=== PATIENT | female | born 1955 | race Caucasian/White ===

== ENCOUNTER 2024-02-22 16:44 | Inpatient (IN) | payer MEDICARE, OTHER, SELFPAY ==
[2024-02-22] VITALS (58 sets, daily range): BP systolic 67–203; BP diastolic 33–121; PULSE 59–151; RESP 16–35; TEMP 36.1–36.9; O2SAT 88–99
--- NOTE | ~2024-02-22 | XR_ITS ---
EXAMINATION: XR chest 1V portable DATE: 03/02/2024 05:46 INDICATION: Pulmonary edema. TECHNIQUE: A single frontal view of the chest was obtained. COMPARISON: Chest single view 03/01/2024 FINDINGS: There is a diffuse interstitial pattern in the lungs, consistent with mild pulmonary edema. No pleural effusion or pneumothorax. The heart size is normal. A left internal jugular central venou s catheter is seen with tip in the superior vena cava. IMPRESSION: 1. Mild pulmonary edema. Reviewed, dictated and finalized at location E. IMPRESSION: 1. Mild pulmonary edema.
--- NOTE | ~2024-02-22 | XR_ITS ---
EXAMINATION: XR abdomen gastric tube insert DATE: 02/22/2024 17:33 INDICATION: Nasogastric tube placement. TECHNIQUE: A supine view of the abdomen was obtained. COMPARISON: None. FINDINGS: There are no dilated loops of bowel. The lower abdomen is excluded. The nasogastric tube ti p is in the stomach. IMPRESSION: 1. Nasogastric tube tip in the stomach. Reviewed, dictated and finalized at location E.
--- NOTE | ~2024-02-22 | US_ITS ---
EXAMINATION: US renal BI DATE: 02/23/2024 14:23 INDICATION: ALONDRA TECHNIQUE: Multiple grayscale and Doppler ultrasound images of the kidneys were obtained. COMPARISON: CTPA 02/22/2024 FINDINGS: Exam limited by patient mobility. The right kidney measures 11.6 x 4.0 x 3.8 cm. The left kidney abigail ures 9.4 x 4.3 x 4.9 cm. The kidneys demonstrate normal parenchymal echogenicity. Mild cortical thinn ing on the left. There is no hydronephrosis. The bladder is decompressed by Llamas catheter and theref ore incompletely evaluated. Incidental note of increased liver echogenicity. IMPRESSION: Mild left renal cortical atrophy. Echogenic liver, most commonly due to steatosis but also can be seen with hepatitis and fibrosis. Reviewed, dictated and finalized at location K. IMPRESSION: Mild left renal cortical atrophy. Echogenic liver, most commonly due to steatosis but also can be seen with hepat itis and fibrosis.
--- NOTE | ~2024-02-22 | XR_ITS ---
Portable chest x-ray Comparison: 02/23/2024 Clinical History: Cardiac arrest Findings: Endotracheal tube, NG tube, and left-sided central venous line are in satisfactory positio ns. Small left pleural effusion present. There is mild central congestive change and probable mild bi basilar pulmonary edema/atelectasis. Cardiomediastinal silhouette is stable. Bones and soft tissues are unremarkable. Impression: Support tubes, as above. Small left pleural effusion with mild bibasilar pulmonary edema/atelectasis. Reviewed, dictated and finalized at location M. Impression: Support tubes, as above. Small left pleural effusion with mild bibasilar pulmonary edema/atelectasis.
--- NOTE | ~2024-02-22 | CT_ITS ---
EXAMINATION: CTA chest PE protocol DATE: 02/22/2024 20:02 INDICATION: Shortness of breath. TECHNIQUE: Computed tomography angiography (CTA) of the chest was performed with 100 mL Omnipaque-350 intravenous contrast timed to evaluate the pulmonary arteries. Coronal maximum intensity projection 3D-reconstructions were created by the technologist. Automated exposure control and iterative reconst ruction technique were employed. The dose-length product was 931.00 mGy-cm. COMPARISON: None. FINDINGS: There are small pleural effusions. There is moderate atelectasis bilaterally with a depende nt predominance. There are airspace and groundglass opacities in the upper lobes. The endotracheal tu be tip is in expected position above the ximena. Cardiomegaly is noted. No pericardial effusion. The nasogastric tube tip is in the stomach. There is no pulmonary embolus. Thoracic kyphosis and moderate spondylosis. There is mild chronic anterior wedging of multiple thoracic vertebral bodies. There are fractures of left fourth-seventh ribs. The left internal jugular central venous catheter is obscured by motion artifact. IMPRESSION: 1. No pulmonary embolus. Sensitivity is moderately decreased by motion artifact. 2. Acute fractures of left fourth-seventh ribs. 3. Small pleural effusions. 4. Airspace and groundglass opacities in the upper lobes, consistent with pneumonia versus pulmonary edema. Reviewed, dictated and finalized at location E. IMPRESSION: 1. No pulmonary embolus. Sensitivity is moderately decreased by motion artifact . 2. Acute fractures of left fourth-seventh ribs. 3. Small pleural effusions. 4. Airspace and groundglass opacities in the upper lobes, consistent with pneum onia versus pulmonary edema.
--- NOTE | ~2024-02-22 | XR_ITS ---
EXAMINATION: XR chest port-a-cath/central DATE: 02/22/2024 18:04 INDICATION: Central line placement. TECHNIQUE: A single frontal view of the chest was obtained on 2 radiographs. COMPARISON: Chest single view at 5:02 PM FINDINGS: The right lateral aspect of the chest is excluded. There are airspace opacities in all lung zones bilaterally. No pleural effusion or pneumothorax. Cardiomegaly is noted. The endotracheal tube tip is 2.4 cm above the ximena. A left internal jugular central venous catheter is seen with tip in the superior vena cava. The nasogastric tube tip is in the stomach. IMPRESSION: 1. Central line tip in the superior vena cava. 2. Worsened diffuse lung disease, consistent with pulmonary edema versus pneumonia. 3. Cardiomegaly. Reviewed, dictated and finalized at location E. IMPRESSION: 1. Central line tip in the superior vena cava. 2. Worsened diffuse lung disease, consistent with pulmonary edema versus pneumo eloise. 3. Cardiomegaly.
--- NOTE | ~2024-02-22 | XR_ITS ---
Portable chest x-ray Comparison: 02/22/2024 Clinical History: Cardiac arrest Findings: Endotracheal tube, NG tube, and left IJ line are in satisfactory positions. There is proba ble small left pleural effusion and/or left basilar atelectasis. Right lung clear. Cardiomediastinal silhouette is stable. Bones and soft tissues are unremarkable. Impression: Probable small left pleural effusion and/or left basilar atelectasis. Support tubes, as above. Reviewed, dictated and finalized at location . Impression: Probable small left pleural effusion and/or left basilar atelectasis. Support tubes, as above.
--- NOTE | ~2024-02-22 | XR_ITS ---
XR chest 1V portable 02/29/2024 05:27 Indication: Pulmonary edema Procedure: AP portable chest Comparison: Comparison to multiple prior studies sequentially, with oldest reviewed study dated 02/25. Findings: Cardiomegaly. Mild interstitial edema. Left IJ central line tip in the SVC. No pleural effu letitia or pneumothorax. No acute osseous abnormality. Impression: 1: Mild interstitial edema. Reviewed, dictated and finalized at location A. Impression: 1: Mild interstitial edema.
--- NOTE | ~2024-02-22 | XR_ITS ---
Portable chest x-ray Comparison: 02/24/2024 Clinical History: Cardiac arrest Findings: Endotracheal tube, NG tube, and left IJ line are in satisfactory positions. Probable mild pulmonary edema pattern. Cardiomediastinal silhouette is stable. Bones and soft tissues are unremark able. Impression: Mild pulmonary edema pattern. Support tubes, as above. Reviewed, dictated and finalized at [facility]. Impression: Mild pulmonary edema pattern. Support tubes, as above.
--- NOTE | ~2024-02-22 | XR_ITS ---
EXAMINATION: XR chest 1V portable DATE: 02/26/2024 20:25 INDICATION: Increased shortness of breath. Abnormal lung sounds. TECHNIQUE: A single frontal view of the chest was obtained. COMPARISON: Chest single view at 5:15 AM FINDINGS: There are airspace opacities in all lung zones bilaterally. No pleural effusion or pneumoth orax. Cardiomegaly is noted. A left internal jugular central venous catheter is seen with tip in the superior vena cava. IMPRESSION: 1. Worsened diffuse lung disease, consistent with pulmonary edema versus pneumonia. 2. Cardiomegaly. Reviewed, dictated and finalized at location E. IMPRESSION: 1. Worsened diffuse lung disease, consistent with pulmonary edema versus pneumo eloise. 2. Cardiomegaly.
--- NOTE | ~2024-02-22 | XR_ITS ---
XR chest 1V portable 02/28/2024 08:13 Indication: Pulmonary edema Procedure: AP portable chest Comparison: Comparison to multiple prior studies sequentially, with oldest reviewed study dated 02/24. Findings: Extensive patchy bilateral airspace disease. Cardiomegaly. Left IJ central line tip in the SVC. No significant effusion. No pneumothorax. Impression: 1: Persistent extensive bilateral airspace disease which may represent edema or pneumonia. Reviewed, dictated and finalized at location A. Impression: 1: Persistent extensive bilateral airspace disease which may represent edema or pneumonia.
--- NOTE | ~2024-02-22 | CT_ITS ---
EXAMINATION: CT brain wo con DATE: 02/22/2024 20:02 INDICATION: Unresponsive. TECHNIQUE: Computed tomography (CT) of the head was performed without intravenous contrast. The mA wa s adjusted according to patient size. Iterative reconstruction technique was employed. The dose-lengt h product was 605.33 mGy-cm. COMPARISON: None FINDINGS: There is no intracranial hemorrhage, acute infarction, or abnormal intracranial mass lesion . There are scattered areas of low attenuation in the cerebral white matter, which is within normal l imits for the patient's age. The ventricles are normal in size. There is a left mastoid effusion. The re is mild mucosal thickening in the paranasal sinuses. The orbits are normal. IMPRESSION: 1. Normal aging brain. Reviewed, dictated and finalized at location E. IMPRESSION: 1. Normal aging brain.
--- NOTE | ~2024-02-22 | XR_ITS ---
Portable chest x-ray Comparison: 02/26/2024 Clinical History: Pulmonary edema Findings: Left-sided central venous line is unchanged. There is central congestive change and mild t o moderate pulmonary edema pattern. Cardiomediastinal silhouette is stable. Bones and soft tissues a re unremarkable. Impression: [id number] pulmonary edema pattern. Stable support line. Reviewed, dictated and finalized at location . Impression: [id number] pulmonary edema pattern. Stable support line.
--- NOTE | ~2024-02-22 | XR_ITS ---
EXAMINATION: XR chest ET placement DATE: 02/22/2024 17:33 INDICATION: Intubation. TECHNIQUE: A single frontal view of the chest was obtained. COMPARISON: None. FINDINGS: There is mild atelectasis in left lower lung zone. No pleural effusion or pneumothorax. Car diomegaly is noted. The endotracheal tube tip is 2.3 cm above the ximena. The nasogastric tube tip is beyond the inferior margin of the radiograph, but at least to the stomach. IMPRESSION: 1. Mild atelectasis in left lower lung zone. 2. Cardiomegaly. Reviewed, dictated and finalized at location E.
--- NOTE | ~2024-02-22 | XR_ITS ---
EXAMINATION: XR chest 1V portable DATE: 03/01/2024 06:58 INDICATION: Pulmonary edema. TECHNIQUE: A single frontal view of the chest was obtained. COMPARISON: Chest single view 02/29/24 FINDINGS: There is a diffuse interstitial pattern, consistent with mild pulmonary edema. A calcified left lung nodule is consistent with old granulomatous disease. There is a small left pleural effusion . No pneumothorax. The heart size is normal. A left internal jugular central venous catheter is seen with tip in the superior vena cava. IMPRESSION: 1. Mild pulmonary edema. 2. Small left pleural effusion. Reviewed, dictated and finalized at location E.
--- NOTE | ~2024-02-22 | XR_ITS ---
Portable chest x-ray Comparison: 02/25/2024 Clinical History: Cardiac arrest Findings: Left-sided central venous line is unchanged. Minimal central congestive changes are presen t. Cardiomediastinal silhouette is stable. Bones and soft tissues are unremarkable. Impression: Mild central congestive changes. Left IJ line in place. Reviewed, dictated and finalized at location . Impression: Mild central congestive changes. Left IJ line in place.
--- NOTE | ~2024-02-22 | XR_ITS ---
Portable chest x-ray Comparison: 03/02/2024 Clinical History: Pulmonary edema Findings: There is central congestive change and probable mild pulmonary edema pattern. Cardiomedia stinal silhouette is stable. Bones and soft tissues are unremarkable. Impression: Central congestive change and probable mild pulmonary edema. Reviewed, dictated and finalized at [facility]. Impression: Central congestive change and probable mild pulmonary edema.
[2024-02-22] MEDS: AMIODARONE 150 MG/D5W 100 ML 150 MG/100 ML BAG 600 MG IV CONT (16:59)
[2024-02-22] MEDS: fentaNYL CITRATE INJ (*CRX) 100 MCG/2 ML VIAL IV PUSH (17:01)
[2024-02-22] MEDS: SODIUM CHLORIDE 0.9% IV 500 ML 999 ML IV CONT (17:03)
[2024-02-22] MEDS: NOREPINEPHRINE 8 MG/D5W 250 ML 8 MG/250 ML BAG 9.38 MG IV CONT (17:15)
[2024-02-22 17:32] LABS: Basophils Absolute Auto 0.1 K/mm3 (0.0-0.1); Basophils Percent Auto 0.6 % (0.2-1.2); Eosinophils Absolute Auto 0.2 K/mm3 (0-0.3); Eosinophils Percent Auto 1.2 % (0-4.4); Hematocrit 47.7 % (37.0-47.0); Hemoglobin 15.5 g/dL (12.0-15.0); Immature Granulocyte Percent A 1.5 % (0-0.5); Immature Platelet Fraction Pct 17.7 % (0.9-11.2); Lymphocytes Absolute Auto 6.07 K/mm3 (0.9-3.2); Mean Corpuscular HGB Conc 32.5 g/dl (32-36); Mean Corpuscular Hemoglobin 31.2 pg (26-34); Mean Platelet Volume 12.1 fl (7.4-10.4); Monocytes Absolute Auto 0.8 K/mm3 (0.1-0.6); Monocytes Percent Auto 6.5 % (2.6-8.5); Neutrophils Absolute Auto 5.6 K/mm3 (1.3-6.7); Neutrophils Percent Auto 43.2 % (45.5-73.1); Platelet Count Result 151 k/mm3 (150-375); Red Blood Count 4.97 M/mm3 (4.2-5.4); Red Cell Distribution Width 13.8 % (11.5-14.5); White Blood Count 12.9 K/mm3 (4.5-10.0)
[2024-02-22 17:34] LABS: Alanine Aminotransferase 171 U/L (6-35); Albumin Level 4.6 g/dL (3.5-5.1); Alkaline Phosphatase 77 U/L (38-126); Anion Gap 13 mmol/L (4-12); Aspartate Amino Transferase 206 U/L (14-36); Bilirubin,Total 0.8 mg/dL (0.2-1.3); Blood Urea Nitrogen 21 mg/dL (7-17); Carbon Dioxide 22 mmol/L (22-30); Chloride 102 mmol/L (98-107); Cholesterol 205 mg/dL (0-200); Estimated Glomerular Filt Rate 49; Glucose 210 mg/dL (65-110); HDL Direct 36 mg/dL; Potassium 3.3 mmol/L (3.4-5.0); Sodium 137 mmol/L (137-145); Triglycerides 285 mg/dL (<150)
[2024-02-22] MEDS: AMIODARONE 360 MG/D5W 200 ML 360 MG/200 ML BAG 33.33 MG IV CONT (17:35)
[2024-02-22 17:42] LABS: INR 0.9; Prothrombin Time 12.2 Seconds (11.1-14.7)
[2024-02-22 17:43] LABS: Partial Thromboplastin Time 24.5 Seconds (22.3-36.8)
[2024-02-22 17:45] LABS: LDL Cholesterol Direct 134 mg/dL
[2024-02-22 17:45] LABS: Alveolar/Arterial O2 Gradient 307.1 mmHg; Base Excess ABG -6.1 mEq/l (+/-2.0); Carboxyhemoglobin 1.1 % THb (0-2.0); Fractional Inspired Oxygen 60 %; HCO3 ABG 20.4 mEq/l (22.0-26.0); Methemoglobin ABG 0.3 %THb (0-1.5); Oxygen Content ABG 19.4 %vol (16.0-22.0); Oxygen Saturation ABG 92.6 % (95.0-100.0); Oxyhemoglobin 90.9 % THb (90.0-100.0); PCO2 ABG 44.2 mmHg (35.0-45.0); PO2 ABG 72.1 mmHg (80.0-100.0); Reduced Hemoglobin 7.7 %THb (0-5.0); Total Hemoglobin 15.2 g/dL (12.0-18.0)
[2024-02-22 17:47] LABS: pH ABG 7.283 (7.350-7.450)
[2024-02-22 17:48] LABS: Troponin I < 0.012 ng/mL (0.000-0.034)
[2024-02-22 17:48] LABS: Device VENTILATOR; Modified Allen's Test Pass; Site Drawn RIGHT RADIAL
[2024-02-22 17:49] LABS: Arterial Blood Gas PEEP 5 cmH2O; Arterial Blood Gas Pressure Support 0 cmH2O; Arterial Blood Gas Tidal Volume 400 ml; Arterial Blood Gas Vent Mode CMV; Arterial Blood Gas Ventilator rate 16 /MIN
[2024-02-22] MEDS: Please add drug allergy info to patient profile. 1 EACH XX (17:49)
--- NOTE | 2024-02-22 18:10 | ED.CPR ---
HPI - CPR General Chief Complaint: Cardiac Arrest/CPR Stated Complaint: post cardaic arrest Time Seen by Provider: 02/22/24 17:00 History of Present Illness HPI narrative: Per at bedside, patient has history of asthma, arrhythmia(?)/missed electric impulses(?) Which she was told would likely require defibrillator which she declined, presents here after cardiac arrest that was witnessed. had noticed that she was having more difficulty breathing, and then her eyes became glossy and she stopped responding, he could not find a pulse, he started doing chest compressions and told his nephew in the backseat to call EMS. Together he and his nephew got the patient on to the ground and continued with CPR, when EMS arrived they saw that patient was in VFib, gave 2 shocks, no medications at the time, and she got ROSC and was transported here. They were assisting ventilations with bag-valve mask. Review of Systems Review of Systems: ROS unobtainable: Yes unobtainable due to medical condition and unobtainable due to mental status Exam Narrative: EXAMINATION OF ORGAN SYSTEMS/BODY AREAS: Constitutional: Vital signs per nursing GENERAL: Unresponsive HEAD: Normal with no signs of head trauma. EYES: Eyes closed; PERRL LUNGS: Being assisted with BVM HEART: Tachycardic ABD: [Soft], nondistended EXT: Normal range of motion, no obvious swelling to either lower extremity SKIN: [No rashes or lesions.] NEURO: Unresponsive Course Vital Signs Vital signs: Vital Signs Pulse Rate 126 H 02/22/24 16:59 Blood Pressure 106/67 02/22/24 16:59 Temperature 96.9 F L 02/22/24 20:07 Pulse Rate 93 02/22/24 21:48 Respiratory Rate 26 H 02/22/24 20:49 Blood Pressure 84/33 L 02/22/24 21:48 Pulse Oximetry 96 02/22/24 20:10 Oxygen Delivery Mechanical Ventilation 02/22/24 20:10 Procedures Arterial Line Arterial line #1: Date of Arterial Line: 02/22/24 Time of Arterial Line: 19:00 Arterial Line Location: femoral and right Discussed with the patient/family/POA, the placement of an arterial catheter, including its clinical necessity/indication and associated potential risks, benefits and alternatives.: Yes Patient/family/POA and/or understands and acknowledges the need to proceed with the arterial catheter insertion as an important element of the patient's clinical management.: Yes Size (Gauge): 20 Technique Used: other (US guided seldinger) Post-Procedure: line sutured into place and dry sterile dressing placed Patient Tolerated Procedure: well and no complications Complications: none Central Line Placement Left IJ: Central Line Date: 02/22/24 Central Line Time: 20:11 Performed Emergently - Given emergent patient condition, temporal constraints may have precluded informed consent.: Yes Patient Placed on Monitor/Pulse Ox: Yes Max. Sterile Barrier Technique: Caps, large sterile sheet and hand hygiene Central Line Prep: 2% chlorhexidine scrub and sterile drapes applied Technique: US-Guided Ultrasound Used for Placement: Yes Central Line Lumen Inserted: triple Post Procedure: sutured in place, good blood return, all ports aspirated, flushed, capped and sterile dressing applied Post Procedure X-Ray: tip of catheter in good position and no pneumothorax seen Patient Tolerated Procedure: well and no complications Complications: none Intubation Intubation #1: Intubation Date: 02/22/24 sedative: Etomidate Mg Given: 20 paralytic: Rocuronium Mg Given: 100 Laryngoscope: fiber optic video scope Tube Size (cm): 7.5 Method of Intubation: orotracheal Number of Attempts: 1 Tube Secured Depth (cm): 23 Tube Secured Location: lips Tube Placement Confirmation: visualized tube passing through cords, equal breath sounds bilaterally
[2024-02-22] MEDS: FENTANYL 2,500MCG/NS250ML(*CRX 2,500 MCG/250 ML BAG IV CONT (18:13)
[2024-02-22] MEDS: MIDAZOLAM 100MG/NS 100ML(*CRX) 100 MG/100 ML BAG IV CONT (19:19)
[2024-02-22 20:11] LABS: Glucose Point of Care 233 mg/dl (65-105)
--- NOTE | 2024-02-22 20:19 | PC.NURSE ---
titrated medications until desired sedation and BP
[2024-02-22] MEDS: PIPERACILLIN/TAZ 4.5G/NS 100ML 4.5 GM/100 ML BAG IVPB (20:40)
[2024-02-22] MEDS: FUROSEMIDE INJ 40 MG/4 ML VIAL IV PUSH (20:40)
[2024-02-22 21:06] LABS: Magnesium 1.8 mg/dL (1.6-2.3)
[2024-02-22 21:07] LABS: Anion Gap 10 mmol/L (4-12); Blood Urea Nitrogen 23 mg/dL (7-17); Calcium 8.3 mg/dL (8.4-10.2); Carbon Dioxide 22 mmol/L (22-30); Chloride 103 mmol/L (98-107); Estimated Glomerular Filt Rate 41; Glucose 281 mg/dL (65-110); Potassium 4.3 mmol/L (3.4-5.0); Sodium 135 mmol/L (137-145)
[2024-02-22 21:12] LABS: Amphetamine Screen Urine Negative (Negative); Barbiturate Screen Urine Negative (Negative); Benzodiazepines Screen Urine Negative (Negative); Cannabinoid Screen Urine Negative (Negative); Cocaine Screen Urine Negative (Negative); Methadone Screen Urine Negative (Negative); Opiate Screen Urine Negative (Negative); Phencyclidine Screen Urine Negative (Negative)
[2024-02-22 21:17] LABS: NT Pro B Type Natriuretic Pept 306 pg/mL (19.9-100)
[2024-02-22 21:20] LABS: Appearance Urine Cloudy (Clear); Bacteria Urine Rare /hpf; Bilirubin Urine Negative (Negative); Blood Urine 2+ (Negative); Color Urine Yellow (Yellow); Glucose Urine UA 2+ mg/dL (Negative); Ketones Urine Negative (Negative); Leukocyte Esterase Ur Negative LEU/UL (Negative); Need Manual Microscopic Reviewed; Nitrate Urine Negative (Negative); Protein Urine 3+ mg/dL (Negative); Specific Grav Ur 1.014 (1.001-1.035); Squamous Epithelial Cell Urine Few /hpf (Few); Urobilinogen Urine 0.2 mg/dL (<2.0)
[2024-02-22 21:21] LABS: Add Urine Microscopic? YES
[2024-02-22 21:33] LABS: Procalcitonin 0.5 ng/mL
[2024-02-22 21:47] LABS: Creatine Kinase 134 U/L (30-135)
--- NOTE | 2024-02-22 21:59 | PM.IMHP ---
H&P: HPI History of Present Illness Date/Time: 02/22/24 21:59 Chief Complaint: Cardiac arrest Narrative: 69-year-old female with past medical history of morbid obesity, gout, asthma, essential hypertension and what sounds like a cardiac conduction issue who presented to the ER via EMS after she became unresponsive on a road trip was found to be in VFib arrest. And patient's provides history. he has limited knowledge on her past medical history but states that she saw a reel cart operator in 2017 after she was having episodes of shortness of breath. At that time the patient was told she had a problem with missed electrical impulses and it was recommended that she have a AICD /pacemaker placed. The patient declined the procedure at that time could she did not want to have any surgeries. He states that she does have a somewhat frequent shortness of breath but has not been more short of breath than usual. She has not been complaining any chest pain or palpitations. She has not had any nausea or vomiting. He denies ever having any history of significant lower extremity swelling unless it is associated with her gouty flares. She does use a rescue inhaler somewhat frequently. He denies ever having history of COPD and she is a lifelong nonsmoker. He states that they were driving their nephew down to [place] from their home in [place], [place]. They had stopped at [employer] locally. shortly after they got back on the highway back on the road he and his were holding hands while he was driving. Suddenly she went limp and became diaphoretic. He looked over at her and she was having agonal respirations. He could not find a pulse and her eyes were glassy. He pulled over at the next exit and started CPR while his nephew called EMS. He thinks EMS arrived about 8 minutes later. At that time patient was found to be in VFib arrest. Patient was Defibrillated x2 with return of her os. The patient did not require additional medications in the field. She was receiving assisted ventilations with [id number] when she arrived to the ER. after arrival to the ER the patient was intubated after RSI medicationsfor stabilization of her airway. after intubation patient developed white complex tachycardia and there was no palpable pulse. Patient subsequently received another round of CPR and Defibrillation. Patient received 1 dose of epi and was given 300 mg of IV push amiodarone. The patient returned to sinus rhythm. EKG reportedly demonstrated a left bundle-branch block with a rate of 70 but at the time of my evaluation staff cannot locate the patient's EKG in due to technical issues the EKG cannot be visualized in the computer system at this time. The patient did develop significant hypotension and required left IJ placement in the ER. The patient's cuff pressures were difficult to obtain due to patient's body habitus and her pressures were quite variable. Subsequently a right femoral art line was placed by ER provider. Cuff pressures were roughly correlating with the femoral line pressures. Patient was started on Levophed. Stat CT of the brain and CTA of the chest with PE protocol was obtained. CT of the brain was negative for acute process in CTA was negative for pulmonary embolism But demonstrated expected rib fractures of left 4 through 7 ribs, small pleural effusion and ground-glass opacities in the upper lobes consistent with pneumonia versus pulmonary edema. Given clinical scenario pulmonary edema is more likely. Initial troponin was negative. He reports that she sleeps propped almost completely upright all the time and snore significantly. He does not think she has ever been tested for sleep apnea. The patient's denies patient having any significant coronary artery disease or history of heart attacks. He does not think the patient has ever had heart catheterization. He does not think the patient has ever had any surgic
[2024-02-22] MEDS: CENTRAL LINE FLUSH 10 ML IV PUSH (22:00)
--- NOTE | 2024-02-22 22:10 | ADMGEN ---
This patient, Michell Bautista, was admitted to Intensive Care Unit-6 at 2124. Patient/family oriented to hospital policies and general routines including ID bracelet, bed and alarms, visiting hours, pain management, procedures, bathroom and other care routines, personal items, smoking policy, room service/diet, and visiting hours. Information on how to activate the Rapid Response Team has been discussed. Patient/Family are encouraged to report perceived risks to care and to ask questions if they do not understand what they are told or what they should do.
[2024-02-22] MEDS: HEPARIN SOD/D5W 100 UNITS/ML 25,000 UNITS/250 ML BAG 10 UNITS IV CONT (22:43)
[2024-02-22] MEDS: AMIODARONE 360 MG/D5W 200 ML 360 MG/200 ML BAG 16.67 MG IV CONT (22:52)
[2024-02-22 22:59] LABS: Prothrombin Time 13.6 Seconds (11.1-14.7)
[2024-02-22 23:05] LABS: Alveolar/Arterial O2 Gradient 376.7 mmHg; Base Excess ABG -7.3 mEq/l (+/-2.0); Fractional Inspired Oxygen 100 %; HCO3 ABG 20.9 mEq/l (22.0-26.0); Oxygen Content ABG 22.2 %vol (16.0-22.0); Oxygen Saturation ABG 99.5 % (95.0-100.0); Oxyhemoglobin 98.4 % THb (90.0-100.0); PO2 ABG 284.3 mmHg (80.0-100.0); PO2 FiO2 Ratio Arterial Blood 2.84 %; Total Hemoglobin 15.6 g/dL (12.0-18.0)
[2024-02-22 23:07] LABS: Device VENTILATOR; Modified Allen's Test Pass; Site Drawn ARTLINE; pH ABG 7.221 (7.350-7.450)
[2024-02-22 23:08] LABS: Arterial Blood Gas PEEP 5 cmH2O; Arterial Blood Gas Tidal Volume 400 ml; Arterial Blood Gas Vent Mode CMV; Arterial Blood Gas Ventilator rate 16 /MIN
[2024-02-22] MEDS: NOREPINEPHRINE 8 MG/D5W 250 ML 8 MG/250 ML BAG 41.25 MG IV CONT (23:51)
[2024-02-22 23:52] LABS: Reflex Lactic Acid Yes or No Add Lactic
[2024-02-22] MEDS: ROCURONIUM BROMIDE 50 MG/5 ML VIAL 80 MG IV PUSH (23:55)
[2024-02-23] VITALS (111 sets, daily range): BP systolic 83–171; BP diastolic 37–72; PULSE 46–73; RESP 16–28; TEMP 32.4–36.6; O2SAT 95–99
[2024-02-23 00:19] LABS: Glucose Point of Care 277 mg/dl (65-105)
[2024-02-23 00:23] LABS: MRSA (PCR) NOT DETECTED (NOT DETECTE)
[2024-02-23] MEDS: fentaNYL CITRATE INJ (*CRX) 100 MCG/2 ML VIAL 50 MCG IV PUSH (00:24)
[2024-02-23 00:33] LABS: Lactic Acid 3.1 mmol/L (0.7-2.0)
[2024-02-23 01:37] LABS: Glucose Point of Care 285 mg/dl (65-105)
[2024-02-23 02:43] LABS: Glucose Point of Care 305 mg/dl (65-105)
[2024-02-23 03:47] LABS: Glucose Point of Care 251 mg/dl (65-105)
[2024-02-23] MEDS: CISATRACURIUM BESYLATE 200 MG in DEXTROSE 5% 80 ML 11.95 ML IV CONT (04:16)
[2024-02-23 04:50] LABS: Alveolar/Arterial O2 Gradient 213.8 mmHg; Carboxyhemoglobin 0.3 % THb (0-2.0); Fractional Inspired Oxygen 60 %; HCO3 ABG 20.8 mEq/l (22.0-26.0); Methemoglobin ABG 0.3 %THb (0-1.5); Oxygen Content ABG 21.9 %vol (16.0-22.0); Oxygen Saturation ABG 98.2 % (95.0-100.0); Oxyhemoglobin 97.6 % THb (90.0-100.0); PO2 ABG 147.1 mmHg (80.0-100.0); PO2 FiO2 Ratio Arterial Blood 2.45 %; Reduced Hemoglobin 1.8 %THb (0-5.0); Total Hemoglobin 15.8 g/dL (12.0-18.0)
[2024-02-23 04:52] LABS: pH ABG 7.151 (7.350-7.450)
[2024-02-23 04:53] LABS: PCO2 ABG 60.8 mmHg (35.0-45.0)
[2024-02-23 04:54] LABS: Basophils Absolute Auto 0.1 K/mm3 (0.0-0.1); Basophils Percent Auto 0.3 % (0.2-1.2); Device VENTILATOR; Hematocrit 47.1 % (37.0-47.0); Immature Granulocyte Absolute 0.17 K/mm3 (0.00-0.031); Lymphocytes Absolute Auto 1.62 K/mm3 (0.9-3.2); Lymphocytes Percent Auto 9.3 % (18.3-44.2); Mean Corpuscular HGB Conc 31.8 g/dl (32-36); Mean Corpuscular Hemoglobin 31.2 pg (26-34); Mean Corpuscular Volume 97.9 fl (80-100); Mean Platelet Volume 10.1 fl (7.4-10.4); Modified Allen's Test Pass; Monocytes Absolute Auto 1.1 K/mm3 (0.1-0.6); Monocytes Percent Auto 6.5 % (2.6-8.5); Neutrophils Absolute Auto 14.5 K/mm3 (1.3-6.7); Neutrophils Percent Auto 82.9 % (45.5-73.1); Platelet Count Result 236 k/mm3 (150-375); Red Blood Count 4.81 M/mm3 (4.2-5.4); Red Cell Distribution Width 14.1 % (11.5-14.5); Site Drawn ARTLINE; White Blood Count 17.5 K/mm3 (4.5-10.0)
[2024-02-23 04:55] LABS: Arterial Blood Gas PEEP 5 cmH2O; Arterial Blood Gas Tidal Volume 400 ml; Arterial Blood Gas Vent Mode CMV; Arterial Blood Gas Ventilator rate 20 /MIN
[2024-02-23 04:56] LABS: Glucose Point of Care 212 mg/dl (65-105)
[2024-02-23 05:05] LABS: Partial Thromboplastin Time 55.6 Seconds (22.3-36.8)
[2024-02-23 05:06] LABS: Alanine Aminotransferase 270 U/L (6-35); Albumin Level 4.4 g/dL (3.5-5.1); Alkaline Phosphatase 66 U/L (38-126); Anion Gap 13 mmol/L (4-12); Aspartate Amino Transferase 289 U/L (14-36); Bilirubin,Total 0.6 mg/dL (0.2-1.3); Blood Urea Nitrogen 25 mg/dL (7-17); Calcium 8.7 mg/dL (8.4-10.2); Carbon Dioxide 21 mmol/L (22-30); Chloride 104 mmol/L (98-107); Creatine Kinase 268 U/L (30-135); Estimated CRCL calculation 41 ml/min; Estimated Glomerular Filt Rate 32; Glucose 271 mg/dL (65-110); Potassium 4.2 mmol/L (3.4-5.0); Sodium 138 mmol/L (137-145)
[2024-02-23 05:07] LABS: Hemoglobin A1C 5.4 % (<5.7)
[2024-02-23 05:14] LABS: Prothrombin Time 13.5 Seconds (11.1-14.7)
[2024-02-23] MEDS: HEPARIN SODIUM 5,000 UNITS/ML VIAL 3500 UNITS IV PUSH (05:34)
[2024-02-23] MEDS: SODIUM BICARBONATE 8.4% 50 MEQ/50 ML SYRINGE 100 MEQ IV PUSH (05:37)
[2024-02-23] MEDS: PIPERACILLIN/TAZ 4.5G/NS 100ML 4.5 GM/100 ML BAG IVPB ×3 (05:45→17:32)
[2024-02-23 05:55] LABS: Glucose Point of Care 258 mg/dl (65-105)
[2024-02-23] MEDS: INSULIN ASPART (*BKC) 100 UNITS/ML SUB-Q ×5 (05:57→20:59)
[2024-02-23] MEDS: CENTRAL LINE FLUSH 10 ML IV PUSH ×3 (06:00→20:59)
[2024-02-23 07:23] LABS: Glucose Point of Care 281 mg/dl (65-105)
--- NOTE | 2024-02-23 08:03 | WPDCNINT ---
Assessment and Plan Assessment and plan (1) Cardiac arrest: Code(s): I46.9 - Cardiac arrest, cause unspecified Status: Acute Assessment and Plan: VT VFib arrest in a patient with some underlying heart disease details of which are unknown. As above mentioned patient was recommended pacemaker AICD placement in 2017 which she refused at that time. She also may have underlying coronary disease. Will try to obtain records Her potassium was low on presentation. CTA chest negative for PE BNP slightly elevated. Serial troponin elevated. EKG reviewed and no ST segment elevation MD. Cardiology consulted Continue aspirin heparin Patient was started on amiodarone infusion but had to be stopped due to bradycardia from hypothermia and prolnged QTc. Telemetry monitoring Check echocardiogram Monitor and replace electrolytes Empiric Zosyn for aspiration (2) Acute kidney injury: Code(s): N17.9 - Acute kidney failure, unspecified Status: Acute Assessment and Plan: Baseline creatinine unknown. Creatinine elevated 1.6 CK marginally elevated Likely prerenal versus renal Will give cautious IV fluids Check renal ultrasound Monitor urine output electrolytes and creatinine (3) Acute hyperglycemia: Code(s): R73.9 - Hyperglycemia, unspecified Status: Acute Assessment and Plan: No known history of diabetes. Blood sugar elevated could be secondary to stress Continue sliding scale. Add Lantus (4) Transaminitis: Code(s): R74.01 - Elevation of levels of liver transaminase levels Status: Acute Assessment and Plan: Normal bilirubin and alkaline phosphatase but elevated AST and ALT likely secondary to shock liver or rhabdo Monitor levels at this time. Hold statin (5) Acute respiratory failure: Code(s): J96.00 - Acute respiratory failure, unspecified whether with hypoxia or hypercapnia Status: Acute Assessment and Plan: Acute Respiratory failure secondary to cardiac arrest, pulmonary edema Continue full mechanical ventilation support to prevent hypoxemia/hypercarbia and end organ damage. ABG and PCXR reviewed Earlier respiratory rate and tidal volume of limited by peak pressures. Patient now on neuromuscular kareem Will increase respiratory rate 28.Will repeat ABG Continue Low tidal volume ventilation strategy to prevent volutrauma Add Bronchodilators Empiric Zosyn for aspiration pneumonia. Blood cultures have been sent (6) Shock: Code(s): R57.9 - Shock, unspecified Status: Acute Assessment and Plan: Continue Levophed infusion Will give 500 mL LR bolus And start gentle IV fluids with bicarb (7) Elevated troponin: Code(s): R79.89 - Other specified abnormal findings of blood chemistry Status: Acute Assessment and Plan: Troponin elevated likely secondary to CPR and cardiac arrest Patient may have underlying coronary disease but no ST segment elevation MD Continue aspirin heparin infusion Not on beta-kareem due to shock and hold statin due to elevated LFTs Cardiology consulted (8) Acidosis: Code(s): E87.20 - Acidosis, unspecified Status: Acute Assessment and Plan: IV fluids with bicarb (9) Anoxic brain injury: Code(s): G93.1 - Anoxic brain damage, not elsewhere classified Status: Acute Assessment and Plan: Patient was not having purposeful movement after resuscitation. Head CT negative Started on TTM protocol will be continued for 24 hours. Patient currently sedated and chemically paralyzed. She l will be reassessed tomorrow. Plan DVT prophylaxis -heparin infusion Stress ulcer prophylaxis -PPI Nutrition - npo Code Status - Full Code Total Critical Care Time - 45 minutes Due to a high probability of clinically significant, life threatening deterioration, the patient required my highest level of preparedness to intervene emergently and I personally spent this critical ca
[2024-02-23] MEDS: allopurinoL 300 MG TABLET PO (08:14)
[2024-02-23] MEDS: ASPIRIN 325 MG TABLET FEED TUBE (08:15)
[2024-02-23] MEDS: PANTOPRAZOLE SODIUM IV 40 MG VIAL IV PUSH (08:16)
[2024-02-23] MEDS: INSULIN GLARGINE (*BKC) 100 UNITS/ML 10 UNITS SUB-Q ×2 (08:16→17:18)
[2024-02-23] MEDS: LACTATED RINGERS 500 ML 999 ML IV CONT (08:18)
[2024-02-23] MEDS: IPRATROPIUM 0.5 MG/ALBUTEROL SULFATE 2.5 MG AMPUL.NEB 3 ML INHALATION ×3 (08:31→20:17)
[2024-02-23] MEDS: BUDESONIDE RESPULE NEB 0.5 MG/2 ML AMP INHALATION ×2 (08:31→20:16)
[2024-02-23] MEDS: SODIUM BICARBONATE 8.4% 150 MEQ in WATER, STERILE FOR INJECTION 950 ML 75 MEQ IV CONT ×2 (08:43→22:34)
[2024-02-23 09:06] LABS: Alveolar/Arterial O2 Gradient 196.4 mmHg; Base Excess ABG -6.3 mEq/l (+/-2.0); Fractional Inspired Oxygen 50 %; HCO3 ABG 17.2 mEq/l (22.0-26.0); Oxygen Content ABG 20.2 %vol (16.0-22.0); Oxygen Saturation ABG 98.5 % (95.0-100.0); Oxyhemoglobin 97.6 % THb (90.0-100.0); PCO2 ABG 29.3 mmHg (35.0-45.0); PO2 ABG 127.1 mmHg (80.0-100.0); PO2 FiO2 Ratio Arterial Blood 2.54 %; Total Hemoglobin 14.6 g/dL (12.0-18.0); pH ABG 7.387 (7.350-7.450)
[2024-02-23 09:11] LABS: Arterial Blood Gas PEEP 5 cmH2O; Arterial Blood Gas Tidal Volume 400 ml; Arterial Blood Gas Vent Mode CMV; Arterial Blood Gas Ventilator rate 28 /MIN; Device VENTILATOR; Site Drawn ARTLINE
--- NOTE | 2024-02-23 10:30 | PCFNICU ---
ICU Rounding Note: Pt current nutrition is NPO Last recorded weight is 132.8 kg. Bowel Motility:No BM noted. Labs Reviewed:TG 285,Cr 1.6,GFR 32, BUN 25, Glu 271 Meds Noted:Fentanyl, Levophed, Vesred Skin: WNL Additional Notes: Patient current with mechanical vent. No plans for nutrition today. hypothermia guidelines in place. Will continue to monitor daily. Following daily in ICU rounds.
--- NOTE | 2024-02-23 10:36 | PM.CNCAR ---
Assessment and Plan Assessment and plan (1) V-tach: Code(s): I47.20 - Ventricular tachycardia, unspecified Status: Acute (2) Cardiac arrest: Code(s): I46.9 - Cardiac arrest, cause unspecified Status: Acute Plan This is a 69-year-old woman with asthma hypertension morbid obesity who presents to the hospital after out of hospital ventricular fibrillation arrest while driving on the highway through this vicinity as detailed above. She has been resuscitated in the field and again in the emergency room out of ventricular tachycardia. She is now on hypothermia protocol and is hemodynamically stable. She is still on hypothermia and on some Levophed. I do not believe this event was likely to be related to an acute myocardial infarction based on the presentation, the electrocardiogram and the 's history that a defibrillator was recommended for some reason 6 years ago. Those records have been requested but they are not available to me at the time of this dictation. At this point supportive care it is of course required and observing for any evidence of meaningful neurological recovery. Prognosis at this time is poor Ras Kunz MD [facility] History of Present Illness History of Present Illness Consult date/time: 02/23/24 10:36 Reason For Visit: S/P cardiac arrest Narrative: This is a fortunate 69-year-old lady I am seeing after cardiac arrest with which she was admitted yesterday to the ICU. She is not from this area and is unknown to physicians in this vicinity. She and her reside in [place] and were traveling to take a family member to [place] in [place] to be deployed in the [employer]. They were [place] on [address] in this vicinity and having a normal conversation as his suddenly he lost consciousness and was clearly suffering a cardiac arrest. The pulled the car over and got her onto the ground and started bystander CPR as well as calling 911. When EMS arrived she was in ventricular fibrillation and resuscitation efforts were continued. She was defibrillated into an effective rhythm and was transported to [facility] Emergency Room. Here she was intubated and while in the emergency room had another arrest that was apparently marked by ventricular tachycardia and was once again cardioverted and resuscitated. She was admitted to the ICU after this was placed on hypothermia protocol she is receiving Levophed and in this setting is being seen in consultation. Her electrocardiogram shows sinus rhythm with a wider QRS with sometimes complete sometimes incomplete left bundle branch block conduction but no ST segment deviation consistent with acute myocardial infarction. Troponin levels have risen slightly after this event which of course is expected. Her chest x-ray shows enlargement of her cardiac silhouette with some fractured ribs from the CPR. She is on hypothermia protocol still on the ventilator and is unresponsive. She was placed on intravenous heparin as well. The patient's is in the room and indicates that she saw a customer services manager for consultation back in 2018. He can not remember the reason for the consultation but he does remember that a defibrillator implant was recommended. The patient declined this recommendation and has not been followed by customer services manager since then. She does have hypertension and asthma as her principal health problems as well as morbid obesity. Review of Systems Review of Systems: ROS unobtainable: Yes unobtainable due to mental status PMFSH Past Medical History Medical History Asthma Depression Essential hypertension Gout Kidney stones Mixed hyperlipidemia cholesterol to avoid triglycerides 285 02/22/2024 Morbid obesity Osteoarthritis Surgical History Surgical History Status post dental lutheran dental implants in place
[2024-02-23] MEDS: PERFLUTREN LIPID MICROSPHERES 1.5 ML VIAL DILUTED TO 10 ML TOTAL VOLUME IV PUSH (11:00)
[2024-02-23 11:49] LABS: Glucose Point of Care 302 mg/dl (65-105)
[2024-02-23] MEDS: FENTANYL 2,500MCG/NS250ML(*CRX 2,500 MCG/250 ML BAG 10 MCG IV CONT (11:50)
[2024-02-23] MEDS: ENOXAPARIN 40 MG/0.4 ML SYRINGE SUB-Q (12:04)
--- NOTE | 2024-02-23 12:11 | IVDEFINITY ---
Prior to administration of IV Definity the patient was educated on the risks and benefits of the imaging enhancing agent including potential adverse side effects. The patient verbalized understanding. Allergies were verified. No exclusion criteria were identified and at least one of the following inclusion criteria were met: 1) physician request, 2) patient technically difficult to image (per the [employer] Echocardi[employer] guidelines of two or more segments not discernable within the apical view), or 3) questionable left ventricular function. ?
--- NOTE | 2024-02-23 12:42 | PM.IMPN ---
Progress Note: A&P Assessment and Plan (1) Cardiac arrest: Code(s): I46.9 - Cardiac arrest, cause unspecified Status: Acute Assessment and Plan: Patient brought in by EMS for VT/VFib cardiac arrest. She has so unknown cardia conduction abnormality and AICD placement was recommended in 2017 which she refused at that time. She also may have underlying coronary disease. Her potassium was low on admission and has been replaced. CTA chest negative for PE but showed left 4th-7th rib fx, small pleural effusions and airspace and GG opacities in the upper lobes CT brain normal. BNP slightly elevated. Troponin peaked at 2.9 EKG showing sinus arrhythmias with left BBB. (unclear if the BBB is new or old) Manager Manufacturing and Cardiology consulted and appreciate their input. Started on aspirin, heparin drip and Amiodarone. Zosyn for possible aspiration She is sedated, intubated and paralyzed and undergoing cooling therapy Echo ordered Amio stopped due to bradycardia. Continue to monitor on telemetry (2) Acute respiratory failure: Code(s): J96.00 - Acute respiratory failure, unspecified whether with hypoxia or hypercapnia Status: Acute Assessment and Plan: Acute Respiratory failure secondary to cardiac arrest and pulmonary edema Imaging as above. Patient intubated in ED ABGs reviewed. Continue full mechanical ventilation Continue Zosyn for aspiration pneumonia. Contine bronchodilators (3) Shock: Code(s): R57.9 - Shock, unspecified Status: Acute Assessment and Plan: BP 67/51 documented in the ED. Central line placed and started on Levophed She received IV fluids in the ED and in ICU Continue Levophed and wean off as BP toelrates. Continue IV fluids with bicarb (4) Acute kidney injury: Code(s): N17.9 - Acute kidney failure, unspecified Status: Acute Assessment and Plan: Baseline creatinine unknown. Creatinine elevated 1.6 CK marginally elevated but not likely to cause renal issues Likely prerenal versus renal versus chronic Started on IV fluids Renal ultrasound ordered Monitor urine output, electrolytes and renal function (5) Acute hyperglycemia: Code(s): R73.9 - Hyperglycemia, unspecified Status: Acute Assessment and Plan: A1c 5.4. The patient's blood glucose was reviewed on 02/22 No hx of DM so consider stress response. Glucose remains elevated Continue AccuCheks covering with sliding scale. Hypoglycemia protocol available as needed. Continue to monitor. Lantus started (6) Transaminitis: Code(s): R74.01 - Elevation of levels of liver transaminase levels Status: Acute Assessment and Plan: Normal bilirubin and alkaline phosphatase but elevated AST and ALT likely secondary to shock liver Not on statin therapy prior to admission Monitor (7) Elevated troponin: Code(s): R79.89 - Other specified abnormal findings of blood chemistry Status: Acute Assessment and Plan: Troponin elevated likely secondary to CPR and cardiac arrest Patient may have underlying coronary disease but no ST segment elevation [place] Continue aspirin and heparin drip Not on beta-kareem due to shock and hold statin due to elevated LFTs Cardiology consulted (8) Acidosis: Code(s): E87.20 - Acidosis, unspecified Status: Acute Assessment and Plan: Related to cardiac arrest and anoxia. ABG noted Continue IV fluids with bicarb (9) Anoxic brain injury: Code(s): G93.1 - Anoxic brain damage, not elsewhere classified Status: Acute Assessment and Plan: Patient was not having purposeful movement after resuscitation. Head CT negative Started on TTM protocol that will be continued for 24 hours. Patient currently sedated and chemically paralyzed. Reassess once of cooling protocol Plan DVT prophylaxis -heparin infusion Stress ulcer prophylaxis -PPI Nutrition - npo
[2024-02-23] MEDS: NOREPINEPHRINE 8 MG/D5W 250 ML 8 MG/250 ML BAG 16.88 MG IV CONT (13:10)
--- NOTE | 2024-02-23 13:30 | ECG_ITS ---
SEE SCANNED COPY FOR CONFIRMED REPORT MTDD
[2024-02-23 16:22] LABS: Glucose Point of Care 360 mg/dl (65-105)
[2024-02-23 16:37] LABS: Anion Gap 16 mmol/L (4-12); Blood Urea Nitrogen 29 mg/dL (7-17); Calcium 8.2 mg/dL (8.4-10.2); Carbon Dioxide 20 mmol/L (22-30); Chloride 100 mmol/L (98-107); Estimated CRCL calculation 41 ml/min; Estimated Glomerular Filt Rate 32; Glucose 398 mg/dL (65-110); Magnesium 1.9 mg/dL (1.6-2.3); Potassium 2.7 mmol/L (3.4-5.0); Sodium 136 mmol/L (137-145)
--- NOTE | 2024-02-23 17:00 | ECG_ITS ---
SEE SCANNED COPY FOR CONFIRMED REPORT MTDD
[2024-02-23] MEDS: MAGNESIUM SULF 1 GM/D5W 100 ML 1 GM/100 ML BAG IVPB (17:18)
[2024-02-23] MEDS: POTASSIUM CHLORIDE 20 MEQ PACKET (FOR LIQUID) FEED TUBE (17:19)
[2024-02-23] MEDS: KCL 40 MEQ/WATER 100 ML 100 ML 25 ML IVPB ×2 (17:19→22:34)
[2024-02-23] MEDS: MIDAZOLAM 100MG/NS 100ML(*CRX) 100 MG/100 ML BAG IV CONT (18:09)
[2024-02-23 20:45] LABS: Glucose Point of Care 365 mg/dl (65-105)
[2024-02-23] MEDS: MINERAL OIL/WHITE PETROLATUM OINTMENT 1 APPLIC EACH EYE (20:59)
[2024-02-23 21:15] LABS: Anion Gap 12 mmol/L (4-12); Blood Urea Nitrogen 29 mg/dL (7-17); Calcium 8.1 mg/dL (8.4-10.2); Carbon Dioxide 23 mmol/L (22-30); Chloride 102 mmol/L (98-107); Estimated CRCL calculation 44 ml/min; Estimated Glomerular Filt Rate 34; Glucose 368 mg/dL (65-110); Magnesium 2.3 mg/dL (1.6-2.3); Potassium 2.9 mmol/L (3.4-5.0); Sodium 137 mmol/L (137-145)
--- NOTE | 2024-02-23 21:28 | ECHO_ITS ---
Patient Info Name: Michell Bautista Age: 69 years : 1955 Gender: Female Ht: 65 in Wt: 292 lbs BSA: 2.54 m2 HR: 47 bpm BP: 94 / 51 mmHg Heart Rhythm: Sinus Rhythm Technical Quality: Fair Exam Date: 02/23/2024 9:38 AM Exam Location: Echo Lab Exam Room: ICU 9 Patient Status: Inpatient Admit Date: 02/22/2024 Staff Ordering Physician: Lucinda Hernandez DO Private Branch Exchange Repairer: Erna Steele RDCS Attending Provider: Zoran Yun MD Referring Physician: David MAY; Exam Type: CA echo dop color flow w con Study Info Indications - CARDIAC ARREST Complete two-dimensional, color flow and Doppler transthoracic echocardiogram is performed with contrast to opacify the left ventricle and to improve the deliniation of the left ventricle endocardial borders. Contrast/Agitated Saline Contrast/Ag. Saline: Definity Amount: 2.00 ml Administered By: Erna Steele [facility] Existing IV Access: Yes IV Access Condition: patent with no signs of infiltration Summary 1. Technically difficult exam, definity contrast utilized to improve visualization. 2. Normal left ventricular size and systolic contractility. 3. No significant valvular dysfunction. 4. Enlarged left atrium. 5. ECG rhythm strip during echo appears to show long QT interval. Left Ventricle Left ventricular chamber dimension is normal. Left ventricular systolic function is normal, estimated at 60-65%. The left ventricular diastolic function is grade I diastolic dysfunction. Right Ventricle Right ventricular chamber dimension is normal. Left Atria Left atrial chamber dimension is moderately enlarged. Right Atria Right atrial chamber dimension is normal. Aortic Valve The aortic valve is normal. Pulmonic Valve The pulmonic valve is not well visualized. There is trace pulmonic regurgitation. Mitral Valve The mitral valve has normal leaflets. Tricuspid Valve The tricuspid valve leaflets are normal. There is trace tricuspid valve regurgitation. Pericardium/Pleural The pericardium appears normal. Aorta The aortic root size at the sinus of Valsalva is normal. Left Ventricular Outflow Tract Name Value Normal LVOT 2D LVOT Diameter 2.10 cm LVOT Doppler LVOT Peak Gradient 6 mmHg LVOT Mean Gradient 3 mmHg LVOT VTI 30.37 cm LVOT VTI/AV VTI Ratio 0.81 LVOT Stroke Volume 105.00 ml LVOT CO 17.61 l/min LVOT CI 6.93 L/min/m2 Pulmonic Valve Name Value Normal RVOT Doppler RVOT Peak Gradient 2 mmHg PV Doppler PV Peak Gradient 5 mmHg Mitral Valve Name
[2024-02-24] VITALS (71 sets, daily range): BP systolic 81–157; BP diastolic 36–89; PULSE 51–93; RESP 13–98; TEMP 32.4–37.7; O2SAT 92–99; BMI 49.1
[2024-02-24] MEDS: PIPERACILLIN/TAZ 4.5G/NS 100ML 4.5 GM/100 ML BAG IVPB ×5 (00:13→23:54)
[2024-02-24 01:00] LABS: Glucose Point of Care 270 mg/dl (65-105)
[2024-02-24] MEDS: INSULIN ASPART (*BKC) 100 UNITS/ML SUB-Q (01:01)
[2024-02-24] MEDS: IPRATROPIUM 0.5 MG/ALBUTEROL SULFATE 2.5 MG AMPUL.NEB 3 ML INHALATION ×4 (01:40→20:15)
[2024-02-24] MEDS: CISATRACURIUM BESYLATE 200 MG in DEXTROSE 5% 80 ML IV CONT (04:33)
[2024-02-24 05:32] LABS: Alveolar/Arterial O2 Gradient 165.6 mmHg; Base Excess ABG 4.7 mEq/l (+/-2.0); Carboxyhemoglobin 0.3 % THb (0-2.0); Fractional Inspired Oxygen 40 %; Methemoglobin ABG 0.3 %THb (0-1.5); Oxygen Content ABG 19.4 %vol (16.0-22.0); Oxygen Saturation ABG 97.1 % (95.0-100.0); Oxyhemoglobin 96.3 % THb (90.0-100.0); PCO2 ABG 32.9 mmHg (35.0-45.0); PO2 ABG 81.8 mmHg (80.0-100.0); PO2 FiO2 Ratio Arterial Blood 2.05 %; Reduced Hemoglobin 3.1 %THb (0-5.0); Total Hemoglobin 14.3 g/dL (12.0-18.0)
[2024-02-24 05:33] LABS: Device VENTILATOR; Site Drawn ARTLINE; pH ABG 7.532 (7.350-7.450)
[2024-02-24 05:34] LABS: Arterial Blood Gas PEEP 5 cmH2O; Arterial Blood Gas Tidal Volume 400 ml; Arterial Blood Gas Vent Mode CMV; Arterial Blood Gas Ventilator rate 25 /MIN
[2024-02-24 05:47] LABS: Hematocrit 38.3 % (37.0-47.0); Hemoglobin 13.1 g/dL (12.0-15.0); Mean Corpuscular HGB Conc 34.2 g/dl (32-36); Mean Corpuscular Hemoglobin 31.2 pg (26-34); Mean Corpuscular Volume 91.2 fl (80-100); Mean Platelet Volume 10.6 fl (7.4-10.4); Platelet Count Result 170 k/mm3 (150-375); Red Cell Distribution Width 13.8 % (11.5-14.5); White Blood Count 13.4 K/mm3 (4.5-10.0)
[2024-02-24 05:50] LABS: Alanine Aminotransferase 162 U/L (6-35); Albumin Level 3.2 g/dL (3.5-5.1); Alkaline Phosphatase 51 U/L (38-126); Anion Gap 3 mmol/L (4-12); Aspartate Amino Transferase 78 U/L (14-36); Bilirubin,Total 0.8 mg/dL (0.2-1.3); Blood Urea Nitrogen 28 mg/dL (7-17); Calcium 8.3 mg/dL (8.4-10.2); Carbon Dioxide 31 mmol/L (22-30); Chloride 101 mmol/L (98-107); Estimated CRCL calculation 51 ml/min; Estimated Glomerular Filt Rate 41; Glucose 200 mg/dL (65-110); Potassium 2.5 mmol/L (3.4-5.0); Sodium 135 mmol/L (137-145)
[2024-02-24 05:54] LABS: Phosphorus < 1.0 mg/dL (2.5-4.5)
[2024-02-24] MEDS: KCL 40 MEQ/WATER 100 ML 100 ML 25 ML IVPB (06:58)
[2024-02-24] MEDS: POTASSIUM CHLORIDE 20 MEQ PACKET (FOR LIQUID) FEED TUBE (06:59)
[2024-02-24] MEDS: CENTRAL LINE FLUSH 10 ML IV PUSH ×3 (07:19→20:50)
[2024-02-24] MEDS: BUDESONIDE RESPULE NEB 0.5 MG/2 ML AMP INHALATION ×2 (07:24→20:15)
--- NOTE | 2024-02-24 08:12 | WPDINTPN ---
Progress Note: A&P Assessment and Plan (1) Cardiac arrest: Code(s): I46.9 - Cardiac arrest, cause unspecified Status: Acute Assessment and Plan: VT VFib arrest in a patient with some underlying heart disease details of which are unknown. As above mentioned patient was recommended pacemaker AICD placement in 2017 which she refused at that time. She also may have underlying coronary disease. Will try to obtain records Her potassium was low on presentation. -CTA chest negative for PE -BNP slightly elevated. Serial troponin elevated. EKG reviewed and no ST segment elevation [place]. Cardiology consulted -Continue aspirin -off heparin infusion -patient initially started on amiodarone infusion discontinued due to bradycardia hypothermia and prolnged QTc. -Hypokalemia, hypophosphatemia: Will replace potassium and phosphorus -Empiric Zosyn for aspiration -currently on target temperature management, rewarming phase, patient did open eyes and follows simple commands 02/23/2024: Echocardiogram ?1. Technically difficult exam, definity contrast utilized to improve visualization. ? 2. Normal left ventricular size and systolic contractility. EF 60-65% ? 3. No significant valvular dysfunction. ? 4. Enlarged left atrium. ? 5. ECG rhythm strip during echo appears to show long QT interval. 6. RVSP 29 mmHg (2) Acute kidney injury: Code(s): N17.9 - Acute kidney failure, unspecified Status: Acute Assessment and Plan: Baseline creatinine unknown. Creatinine elevated 1.6 CK marginally elevated Likely prerenal versus renal -status post IV fluids -02/22: renal ultrasound -Mild left renal cortical atrophy. Echogenic liver, most commonly due to steatosis but also can be seen with hepatitis and fibrosis. -creatinine trending down, low urine output -Monitor urine output electrolytes and creatinine (3) Acute hyperglycemia: Code(s): R73.9 - Hyperglycemia, unspecified Status: Acute Assessment and Plan: No known history of diabetes. Blood sugar elevated could be secondary to stress Continue sliding scale. Status post Lantus -blood sugars much improved this morning -continue to monitor (4) Transaminitis: Code(s): R74.01 - Elevation of levels of liver transaminase levels Status: Acute Assessment and Plan: Normal bilirubin and alkaline phosphatase but elevated AST and ALT likely secondary to shock liver or rhabdo Monitor levels at this time. Hold statin -LFTs trending down, continue to monitor (5) Acute respiratory failure: Code(s): J96.00 - Acute respiratory failure, unspecified whether with hypoxia or hypercapnia Status: Acute Assessment and Plan: Acute Respiratory failure secondary to cardiac arrest, pulmonary edema Continue full mechanical ventilation support to prevent hypoxemia/hypercarbia and end organ damage. On admission respiratory rate and tidal volume of limited by peak pressures. -patient off neuromuscular kareem -ABG and PCXR reviewed, ventilator adjusted -Continue Low tidal volume ventilation strategy to prevent volutrauma -continue Bronchodilators Empiric Zosyn for aspiration pneumonia. -02/21: Blood cultures negative x2 so far -02/21: Urine culture pending (6) Shock: Code(s): R57.9 - Shock, unspecified Status: Acute Assessment and Plan: Wean Levophed to maintain MAP > 65 mmHg at all times for adequate end organ perfusion Patient received IV fluids on admission -patient was also started on sodium bicarb infusion which was discontinued this morning due to metabolic alkalosis -albumin started for intravascular volume repletion (7) Elevated troponin: Code(s): R79.89 - Other specified abnormal findings of blood chemistry Status: Acute Assessment and Plan: Troponin elevated likely secondary to CPR and cardiac arrest Patient may have underlying coronary disease but no ST segment elevation [place] Continue asp
[2024-02-24] MEDS: ENOXAPARIN 40 MG/0.4 ML SYRINGE SUB-Q (08:19)
[2024-02-24] MEDS: PANTOPRAZOLE SODIUM IV 40 MG VIAL IV PUSH (08:19)
[2024-02-24] MEDS: ALBUMIN HUMAN 25% 25 GM/100 ML 100 ML IVPB ×3 (08:19→19:48)
[2024-02-24] MEDS: ASPIRIN 325 MG TABLET FEED TUBE (08:19)
[2024-02-24] MEDS: allopurinoL 300 MG TABLET PO (08:19)
[2024-02-24] MEDS: POTASSIUM/PHOSPHORUS/SODIUM 1.5 GM PACKET 2 PACKET PO (08:19)
[2024-02-24] MEDS: MINERAL OIL/WHITE PETROLATUM OINTMENT 1 APPLIC EACH EYE ×2 (08:20→20:50)
[2024-02-24 08:27] LABS: Glucose Point of Care 129 mg/dl (65-105)
[2024-02-24] MEDS: FENTANYL 2,500MCG/NS250ML(*CRX 2,500 MCG/250 ML BAG 12.5 MCG IV CONT (09:34)
[2024-02-24 12:04] LABS: Glucose Point of Care 85 mg/dl (65-105)
[2024-02-24 12:23] LABS: Anion Gap 7 mmol/L (4-12); Blood Urea Nitrogen 30 mg/dL (7-17); Calcium 8.7 mg/dL (8.4-10.2); Carbon Dioxide 32 mmol/L (22-30); Chloride 103 mmol/L (98-107); Estimated CRCL calculation 37 ml/min; Estimated Glomerular Filt Rate 28; Glucose 85 mg/dL (65-110); Potassium 3.7 mmol/L (3.4-5.0); Sodium 142 mmol/L (137-145)
--- NOTE | 2024-02-24 16:50 | PM.IMPN ---
Progress Note: A&P Assessment and Plan (1) Cardiac arrest: Code(s): I46.9 - Cardiac arrest, cause unspecified Status: Acute Assessment and Plan: Patient brought in by EMS for VT/VFib cardiac arrest. She has so unknown cardiac conduction abnormality and AICD placement was recommended in 2017 which she refused at that time. She also may have underlying coronary disease. Her potassium was low on admission and has been replaced. CTA chest negative for PE but showed left 4th-7th rib fx, small pleural effusions and airspace and GG opacities in the upper lobes CT brain normal. BNP slightly elevated. Troponin peaked at 2.9 EKG showing sinus arrhythmias with left BBB. (unclear if the BBB is new or old) Machine Stone Polisher Apprentice and Cardiology consulted and appreciate their input. Started on aspirin, heparin drip and Amiodarone. Zosyn for possible aspiration She is intubated and sedated; off paralytics and off cooling therapy Echo normal LV size and systolic fxn (EF 60-65%), grade I daistolic dysfxn and long QT Amio stopped due to bradycardia. Heparin drip off. Remains on levophed Continue to monitor on telemetry (2) Acute respiratory failure: Code(s): J96.00 - Acute respiratory failure, unspecified whether with hypoxia or hypercapnia Status: Acute Assessment and Plan: Acute Respiratory failure secondary to cardiac arrest and pulmonary edema Imaging as above. Patient intubated in ED ABGs reviewed. Continue full mechanical ventilation Continue Zosyn for aspiration pneumonia. Contine bronchodilators (3) Shock: Code(s): R57.9 - Shock, unspecified Status: Acute Assessment and Plan: BP 67/51 documented in the ED. Central line placed and started on Levophed She received IV fluids in the ED and in ICU Continue Levophed and wean off as BP toelrates. Continue IV fluids with bicarb (4) Acute kidney injury: Code(s): N17.9 - Acute kidney failure, unspecified Status: Acute Assessment and Plan: Baseline creatinine unknown. Creatinine 1.1 on admission CK marginally elevated but not likely to cause renal issues Likely prerenal versus renal versus chronic Started on IV fluids Renal ultrasound showing mild renal cortical atrophy Cr higher 1.3-1.8 range Monitor urine output, electrolytes and renal function (5) Acute hyperglycemia: Code(s): R73.9 - Hyperglycemia, unspecified Status: Acute Assessment and Plan: A1c 5.4. The patient's blood glucose was reviewed on 02/23 No hx of DM so consider stress response. Lantus started but off now Glucose normal now Continue AccuCheks covering with sliding scale. Hypoglycemia protocol available as needed. Continue to monitor (6) Transaminitis: Code(s): R74.01 - Elevation of levels of liver transaminase levels Status: Acute Assessment and Plan: Normal bilirubin and alkaline phosphatase but elevated AST and ALT likely secondary to shock liver Not on statin therapy prior to admission Renal US showing echogenic liver levels trending down Monitor (7) Elevated troponin: Code(s): R79.89 - Other specified abnormal findings of blood chemistry Status: Acute Assessment and Plan: Troponin elevated likely secondary to CPR and cardiac arrest Patient may have underlying coronary disease but no ST segment elevation [place] Continue aspirin; heparin drip off Not on beta-kareem due to shock and holding statin due to elevated LFTs Cardiology consulted and appreciate their input (8) Acidosis: Code(s): E87.20 - Acidosis, unspecified Status: Acute Assessment and Plan: Related to cardiac arrest and anoxia. ABG noted. Treated with IV fluids with bicarb Resolved (9) Anoxic brain injury: Code(s): G93.1 - Anoxic brain damage, not elsewhere classified Status: Acute Assessment and Plan: Patient now having purposeful movement after resuscitati
[2024-02-24 17:26] LABS: Glucose Point of Care 94 mg/dl (65-105)
[2024-02-24] MEDS: MIDAZOLAM 100MG/NS 100ML(*CRX) 100 MG/100 ML BAG IV CONT (19:17)
[2024-02-24 21:00] LABS: Glucose Point of Care 115 mg/dl (65-105)
[2024-02-25] VITALS (48 sets, daily range): BP systolic 98–164; BP diastolic 43–72; PULSE 71–98; RESP 12–22; TEMP 37.5–38.2; O2SAT 90–98
[2024-02-25] MEDS: ALBUMIN HUMAN 25% 25 GM/100 ML 100 ML IVPB (01:51)
[2024-02-25 02:09] LABS: Glucose Point of Care 131 mg/dl (65-105)
[2024-02-25] MEDS: IPRATROPIUM 0.5 MG/ALBUTEROL SULFATE 2.5 MG AMPUL.NEB 3 ML INHALATION ×4 (02:12→20:17)
[2024-02-25 04:33] LABS: Hematocrit 33.9 % (37.0-47.0); Hemoglobin 10.9 g/dL (12.0-15.0); Mean Corpuscular HGB Conc 32.2 g/dl (32-36); Mean Corpuscular Hemoglobin 31.1 pg (26-34); Mean Corpuscular Volume 96.9 fl (80-100); Platelet Count Result 155 k/mm3 (150-375); White Blood Count 10.6 K/mm3 (4.5-10.0)
[2024-02-25 04:44] LABS: Alanine Aminotransferase 110 U/L (6-35); Albumin Level 4.1 g/dL (3.5-5.1); Alkaline Phosphatase 40 U/L (38-126); Anion Gap 9 mmol/L (4-12); Aspartate Amino Transferase 80 U/L (14-36); Blood Urea Nitrogen 33 mg/dL (7-17); Calcium 9.1 mg/dL (8.4-10.2); Carbon Dioxide 29 mmol/L (22-30); Chloride 103 mmol/L (98-107); Estimated CRCL calculation 31 ml/min; Estimated Glomerular Filt Rate 23; Glucose 122 mg/dL (65-110); Magnesium 2.1 mg/dL (1.6-2.3); Phosphorus 4.4 mg/dL (2.5-4.5); Potassium 3.9 mmol/L (3.4-5.0); Sodium 141 mmol/L (137-145)
[2024-02-25 05:33] LABS: Alveolar/Arterial O2 Gradient 162.1 mmHg; Carboxyhemoglobin 0.1 % THb (0-2.0); Fractional Inspired Oxygen 40 %; HCO3 ABG 28.3 mEq/l (22.0-26.0); Methemoglobin ABG 0.3 %THb (0-1.5); Oxygen Content ABG 15.9 %vol (16.0-22.0); Oxygen Saturation ABG 95.7 % (95.0-100.0); Oxyhemoglobin 94.5 % THb (90.0-100.0); PCO2 ABG 41.5 mmHg (35.0-45.0); PO2 ABG 75.4 mmHg (80.0-100.0); PO2 FiO2 Ratio Arterial Blood 1.88 %; Reduced Hemoglobin 5.1 %THb (0-5.0); Total Hemoglobin 11.9 g/dL (12.0-18.0); pH ABG 7.452 (7.350-7.450)
[2024-02-25 05:35] LABS: Device VENTILATOR; Modified Allen's Test Pass; Site Drawn ARTLINE
[2024-02-25 05:36] LABS: Arterial Blood Gas PEEP 5 cmH2O; Arterial Blood Gas Tidal Volume 400 ml; Arterial Blood Gas Vent Mode CMV; Arterial Blood Gas Ventilator rate 18 /MIN
[2024-02-25] MEDS: PIPERACILLIN/TAZ 4.5G/NS 100ML 4.5 GM/100 ML BAG IVPB (06:02)
[2024-02-25] MEDS: CENTRAL LINE FLUSH 10 ML IV PUSH ×3 (06:02→20:56)
[2024-02-25] MEDS: MIDAZOLAM 100MG/NS 100ML(*CRX) 100 MG/100 ML BAG IV CONT (06:06)
[2024-02-25 07:32] LABS: Creatine Kinase 1446 U/L (30-135)
[2024-02-25] MEDS: BUDESONIDE RESPULE NEB 0.5 MG/2 ML AMP INHALATION ×2 (07:40→20:17)
[2024-02-25] MEDS: ENOXAPARIN 40 MG/0.4 ML SYRINGE SUB-Q (08:20)
[2024-02-25] MEDS: allopurinoL 300 MG TABLET PO (08:20)
[2024-02-25] MEDS: PANTOPRAZOLE SODIUM IV 40 MG VIAL IV PUSH (08:20)
[2024-02-25] MEDS: ASPIRIN 325 MG TABLET FEED TUBE (08:20)
[2024-02-25] MEDS: MINERAL OIL/WHITE PETROLATUM OINTMENT 1 APPLIC EACH EYE (08:21)
--- NOTE | 2024-02-25 08:24 | WPDINTPN ---
Progress Note: A&P Assessment and Plan (1) Cardiac arrest: Code(s): I46.9 - Cardiac arrest, cause unspecified Status: Acute Assessment and Plan: VT VFib arrest in a patient with some underlying heart disease details of which are unknown. As above mentioned patient was recommended pacemaker AICD placement in 2017 which she refused at that time. She also may have underlying coronary disease. Will try to obtain records Her potassium was low on presentation. -CTA chest negative for PE -BNP slightly elevated. Serial troponin elevated. EKG reviewed and no ST segment elevation [place]. Cardiology consulted -Continue aspirin -off heparin infusion -patient initially started on amiodarone infusion discontinued due to bradycardia hypothermia and prolonged QTc. -Hypokalemia, hypophosphatemia: Resolved -Empiric Zosyn for aspiration -status post target temperature management 02/23/2024: Echocardiogram ?1. Technically difficult exam, definity contrast utilized to improve visualization. ? 2. Normal left ventricular size and systolic contractility. EF 60-65% ? 3. No significant valvular dysfunction. ? 4. Enlarged left atrium. ? 5. ECG rhythm strip during echo appears to show long QT interval. 6. RVSP 29 mmHg (2) Acute kidney injury: Code(s): N17.9 - Acute kidney failure, unspecified Status: Acute Assessment and Plan: Baseline creatinine unknown. Creatinine elevated 1.6 CK marginally elevated Likely prerenal versus renal -status post IV fluids -02/22: renal ultrasound -Mild left renal cortical atrophy. Echogenic liver, most commonly due to steatosis but also can be seen with hepatitis and fibrosis. -creatinine has increased this morning to 2.10 (1.30 on 02/23) -obtain urine lytes, CK level, urine eosinophils -nephrology has been consulted -acute kidney injury could be likely related to prerenal, cardiac arrest/hypotension, shock, contrast for CTA -Monitor urine output electrolytes and creatinine (3) Acute hyperglycemia: Code(s): R73.9 - Hyperglycemia, unspecified Status: Acute Assessment and Plan: No known history of diabetes. Blood sugar elevated could be secondary to stress Continue Accu-Cheks and sliding scale insulin. Status post Lantus -blood sugars much improved this morning -continue to monitor (4) Transaminitis: Code(s): R74.01 - Elevation of levels of liver transaminase levels Status: Acute Assessment and Plan: Normal bilirubin and alkaline phosphatase but elevated AST and ALT likely secondary to shock liver or rhabdo Monitor levels at this time. Hold statin -LFTs trending down, continue to monitor (5) Acute respiratory failure: Code(s): J96.00 - Acute respiratory failure, unspecified whether with hypoxia or hypercapnia Status: Acute Assessment and Plan: Acute Respiratory failure secondary to cardiac arrest, pulmonary edema Continue full mechanical ventilation support to prevent hypoxemia/hypercarbia and end organ damage. On admission respiratory rate and tidal volume of limited by peak pressures. -patient off neuromuscular kareem -ABG and PCXR reviewed, ventilator adjusted -Continue Low tidal volume ventilation strategy to prevent volutrauma -continue Bronchodilators (6) Shock: Code(s): R57.9 - Shock, unspecified Status: Acute Assessment and Plan: Wean Levophed to maintain MAP > 65 mmHg at all times for adequate end organ perfusion Patient received IV fluids on admission -patient was also started on sodium bicarb infusion which was discontinued this morning due to metabolic alkalosis -s/p albumin Empiric Zosyn for aspiration pneumonia. -02/21: Blood cultures negative x2 so far -02/21: Urine culture negative (7) Elevated troponin: Code(s): R79.89 - Other specified abnormal findings of blood chemistry Status: Acute Assessment and Plan: Troponin elevated likely secondary to CPR and ca
[2024-02-25] MEDS: SODIUM CHLORIDE 0.9% IV 1,000 ML 100 ML IV CONT (08:37)
[2024-02-25 08:47] LABS: Creatinine Urine 238.8 mg/dL
[2024-02-25 08:48] LABS: Potassium Urine Random 103.4 meq/L; Sodium Urine Random 30 meq/L
[2024-02-25 09:09] LABS: Eosinophil Urine None Seen % (None Seen); Urine Eos QC 2nd Tech Confirmed
--- NOTE | 2024-02-25 10:52 | PCFNICU ---
ICU Rounding Note: Pt current nutrition is Vital AF 1.2 at 50 ml/hr. Last recorded weight is 126.5 kg, down from 132.8 kg on admit. Bowel Motility: No BM reported. Labs Reviewed: Glu 122, BUN 33, Cr 2.10, GFR 23,HCt 33.9,Hgb 10.9 Meds Noted: Versed, Fentanyl, NS, Protonix. Skin:WNL Additional Notes: Patient remains on mechanical vent. Plans for breathing trial today. Tube feedings will be on hold. Agree with diet orders. Following daily in ICU rounds. Will monitor weight, labs, skin, tube feeding tolerance, and meds every Friday and Friday.
--- NOTE | 2024-02-25 11:27 | PM.PNCARD ---
Progress Note: A&P Assessment and Plan (1) Cardiac arrest: Code(s): I46.9 - Cardiac arrest, cause unspecified Status: Acute Assessment and Plan: Presented as out of hospital VFIB cardiac arrest. Completed hypothermia protocol. Echocardiogram 02/22 shows LVEF 60-65%, no significant valvular disease, moderately enlarged left atrium. EKGs with long QT, however, these were while she was on hypothermia protocol. Not on QT prolonging medications. Will monitor her QT for now. Patient had seen a chief controller station back in 2018, and an AICD was recommended at that time, however, patient had declined. We have requested records, but have not received any records as of yet. Will eventually need ischemic evaluation once she has recovered from her shock and once her ALONDRA improves. Will assess her neurological status once she has been extubated. If cardiac catheterization does not show any obstructive coronary artery disease, then she will need ICD. (2) Shock: Code(s): R57.9 - Shock, unspecified Status: Acute Assessment and Plan: Levophed as been placed on standby. (3) Respiratory failure requiring intubation: Code(s): J96.90 - Respiratory failure, unspecified, unspecified whether with hypoxia or hypercapnia Status: Acute Assessment and Plan: Management as per ICU team. (4) Acute kidney injury: Code(s): N17.9 - Acute kidney failure, unspecified Status: Acute Assessment and Plan: ALONDRA continues to worsen. Nephrology has been consulted. Plan Recommendations and plan discussed with Refuse And Recycling Worker. Subjective Date/time seen: 02/25/24 11:27 Interval history: Reason for visit: Cardiac arrest HPI: This is a fortunate 69-year-old lady I am seeing after cardiac arrest with which she was admitted yesterday to the ICU.? She is not from this area and is unknown to physicians in this vicinity.? She and her reside in [place] and were traveling to take a family member to [place] in [place] to be deployed in the [employer].? [place] [address] in this vicinity and having a normal conversation as his suddenly he lost consciousness and was clearly suffering a cardiac arrest.? The pulled the car over and got her onto the ground and started bystander CPR as well as calling 911.? When EMS arrived she was in ventricular fibrillation and resuscitation efforts were continued.? She was defibrillated into an effective rhythm and was transported to [facility] Emergency Room.? Here she was intubated and while in the emergency room had another arrest that was apparently marked by ventricular tachycardia and was once again cardioverted and resuscitated.? She was admitted to the ICU after this was placed on hypothermia protocol she is receiving Levophed and in this setting is being seen in consultation.? Her electrocardiogram shows sinus rhythm with a wider QRS with sometimes complete sometimes incomplete left bundle branch block conduction but no ST segment deviation consistent with acute myocardial infarction.? Troponin levels have risen slightly after this event which of course is expected.? Her chest x-ray shows enlargement of her cardiac silhouette with some fractured ribs from the CPR.? She is on hypothermia protocol still on the ventilator and is unresponsive.? She was placed on intravenous heparin as well.? The patient's is in the room and indicates that she saw a chief controller station for consultation back in 2018.? He can not remember the reason for the consultation but he does remember that a defibrillator implant was recommended.? The patient declined this recommendation and has not been followed by chief controller station since then.? She does have hypertension and asthma as her principal health problems as well as morbid obesity. Date of service 02/24: Remains intubated, but awake and following commands. Levophed is now placed on standby. SCr rising. Review of Systems Review
[2024-02-25] MEDS: MIDAZOLAM HCL (*CRX) 2 MG/2 ML VIAL 1 MG IV PUSH (11:42)
[2024-02-25] MEDS: dexmedeTOMIDine 400 MCG/100 ML 400 MCG/100 ML BAG 6.33 MCG IV CONT (11:43)
[2024-02-25 11:51] LABS: Glucose Point of Care 136 mg/dl (65-105)
--- NOTE | 2024-02-25 12:15 | P.CONNP_ITS ---
Assessment and Plan Assessment and plan (1) Acute kidney injury: Code(s): N17.9 - Acute kidney failure, unspecified Status: Acute Assessment and Plan: * baseline creatinine unknown * admission creatinine 1.1mg/dl -- up to 2.1mg/d by AM labs * suspect ATN from: * cardiac arrest * hypotension/hemodynamic instability/shock * contrast exposure * prerenal factors * ARB + HCTZ + NSAID use prior to admission * renal ultrasound noted * follow-up on urine studies and CPK * follow repeat labs and UOP (2) Cardiac arrest: Code(s): I46.9 - Cardiac arrest, cause unspecified Status: Acute Assessment and Plan: * noted Vifib/Vtach arrest * unclear if underlying heart disease * reported history of recommendation for AICD/pacemaker several years ago * Cardiology following * s/p TTM protocol (3) Acute respiratory failure: Code(s): J96.00 - Acute respiratory failure, unspecified whether with hypoxia or hypercapnia Status: Acute Assessment and Plan: * secondary to cardiac arrest and pulmonary edema +/- pneumonia * CT of chest results noted * remains on ventilator support * weaning once more stable * empiric antibiotics (4) Shock: Code(s): R57.9 - Shock, unspecified Status: Acute Assessment and Plan: * on levophed but being weaned as tolerated * s/p aggressive IVF resuscitation * on antibiotic for presumed aspiration pneumonia * culture data noted to date * follow trend of hemodynamics (5) Anemia: Code(s): D64.9 - Anemia, unspecified Status: Acute Assessment and Plan: * due to ALONDRA along with acute illness * follow trend of H/H (6) Transaminitis: Code(s): R74.01 - Elevation of levels of liver transaminase levels Status: Acute Assessment and Plan: * elevated AST and ALT likely secondary to shock liver * statin on hold * follow trend Case discussed with Dr. Melvin. I will continue follow the patient with you while she remains hospitalized to make further recommendations as deemed necessary. Thank you for allowing me to participate in the care of this patient. History of Present Illness Reason for Consult Consult date: 02/25/24 Reason for consult: acute renal failure Chief Complaint Chief complaint: S/P cardiac arrest History of Present Illness Narrative: All the information I have obtained is from review of the electronic medical record as well as discussion with the physician/nurses involved in the patient's care as the patient is unable to provide any history as she is currently intubated and on mechanical ventilation. The patient is a 69-year-old female with a past medical history as outlined below who presented to [facility] Emergency room via EMS after being found unresponsive and in VFib arrest. The patient and her were apparently driving her nephew down the [address] from their home in [facility] [facility]. They stopped at a local [employer]'s for a rest stop before getting back on the road. The patient and her were apparently holding hands while he was driving when she apparently went limp and became diaphoretic. Her noted that she was having agonal respirations. He pulled over at the next exit and on further evaluation noted that her eyes were glassy and she did not have a pulse. He started CPR while his nephew called EMS. By the time of EMS arrival, it was noted that she was in VFib arrest. She was apparently defer belated x2 with return of systemic
--- NOTE | 2024-02-25 12:15 | PM.CNNEP ---
Assessment and Plan Assessment and plan (1) Acute kidney injury: Code(s): N17.9 - Acute kidney failure, unspecified Status: Acute Assessment and Plan: baseline creatinine unknown admission creatinine 1.1mg/dl -- up to 2.1mg/d by AM labs suspect ATN from: cardiac arrest hypotension/hemodynamic instability/shock contrast exposure prerenal factors ARB + HCTZ + NSAID use prior to admission renal ultrasound noted follow-up on urine studies and CPK follow repeat labs and UOP (2) Cardiac arrest: Code(s): I46.9 - Cardiac arrest, cause unspecified Status: Acute Assessment and Plan: noted Vifib/Vtach arrest unclear if underlying heart disease reported history of recommendation for AICD/pacemaker several years ago Cardiology following s/p TTM protocol (3) Acute respiratory failure: Code(s): J96.00 - Acute respiratory failure, unspecified whether with hypoxia or hypercapnia Status: Acute Assessment and Plan: secondary to cardiac arrest and pulmonary edema +/- pneumonia CT of chest results noted remains on ventilator support weaning once more stable empiric antibiotics (4) Shock: Code(s): R57.9 - Shock, unspecified Status: Acute Assessment and Plan: on levophed but being weaned as tolerated s/p aggressive IVF resuscitation on antibiotic for presumed aspiration pneumonia culture data noted to date follow trend of hemodynamics (5) Anemia: Code(s): D64.9 - Anemia, unspecified Status: Acute Assessment and Plan: due to ALONDRA along with acute illness follow trend of H/H (6) Transaminitis: Code(s): R74.01 - Elevation of levels of liver transaminase levels Status: Acute Assessment and Plan: elevated AST and ALT likely secondary to shock liver statin on hold follow trend Case discussed with Dr. Melvin. I will continue follow the patient with you while she remains hospitalized to make further recommendations as deemed necessary. Thank you for allowing me to participate in the care of this patient. History of Present Illness Reason for Consult Consult date: 02/25/24 Reason for consult: acute renal failure Chief Complaint Chief complaint: S/P cardiac arrest History of Present Illness Narrative: All the information I have obtained is from review of the electronic medical record as well as discussion with the physician/nurses involved in the patient's care as the patient is unable to provide any history as she is currently intubated and on mechanical ventilation. The patient is a 69-year-old female with a past medical history as outlined below who presented to [facility] Emergency room via EMS after being found unresponsive and in VFib arrest. The patient and her were apparently driving her nephew down the [address] from their home in [place]. They stopped at a local [employer] for a rest stop before getting back on the road. The patient and her were apparently holding hands while he was driving when she apparently went limp and became diaphoretic. Her noted that she was having agonal respirations. He pulled over at the next exit and on further evaluation noted that her eyes were glassy and she did not have a pulse. He started CPR while his nephew called EMS. By the time of EMS arrival, it was noted that she was in VFib arrest. She was apparently defer belated x2 with return of systemic circulation and did not require any additional medications in the field and was subsequently transferred to the ER for further assessement. She received bag assisted ventilations until arrival to the ER where she was eventually intubated and placed on mechanical ventilation for airway protection. Following intubation, she apparently developed a wide complex tachycardia and lost her pulse is once again. ACLS protocol was initiated laura
[2024-02-25 13:43] LABS: Alveolar/Arterial O2 Gradient 136.7 mmHg; Base Excess ABG 4.7 mEq/l (+/-2.0); Fractional Inspired Oxygen 40 %; HCO3 ABG 30.8 mEq/l (22.0-26.0); Oxygen Content ABG 15.9 %vol (16.0-22.0); Oxygen Saturation ABG 96.4 % (95.0-100.0); Oxyhemoglobin 95.4 % THb (90.0-100.0); PCO2 ABG 52.9 mmHg (35.0-45.0); PO2 ABG 87.7 mmHg (80.0-100.0); PO2 FiO2 Ratio Arterial Blood 2.19 %; Total Hemoglobin 11.8 g/dL (12.0-18.0); pH ABG 7.383 (7.350-7.450)
[2024-02-25 13:44] LABS: Device VENTILATOR; Site Drawn ARTLINE
[2024-02-25 13:45] LABS: Arterial Blood Gas Vent Mode SPONTANEOUS
[2024-02-25 13:46] LABS: Arterial Blood Gas PEEP 5 cmH2O; Arterial Blood Gas Pressure Support 8 cmH2O
[2024-02-25 16:26] LABS: Glucose Point of Care 127 mg/dl (65-105)
[2024-02-25] MEDS: ACETAMINOPHEN ELIXIR 325 MG/10.15 ML UDC 650 MG PO ×2 (17:08→23:15)
--- NOTE | 2024-02-25 17:25 | PM.IMPN ---
Progress Note: A&P Assessment and Plan (1) Cardiac arrest: Code(s): I46.9 - Cardiac arrest, cause unspecified Status: Acute Assessment and Plan: Patient brought in by EMS for VT/VFib cardiac arrest. She has so unknown cardiac conduction abnormality and AICD placement was recommended in 2017 which she refused at that time. She also may have underlying coronary disease. Her potassium was low on admission and has been replaced. CTA chest negative for PE but showed left 4th-7th rib fx, small pleural effusions and airspace and GG opacities in the upper lobes CT brain normal. Just extubated today (2) Acute respiratory failure: Code(s): J96.00 - Acute respiratory failure, unspecified whether with hypoxia or hypercapnia Status: Acute Assessment and Plan: Acute Respiratory failure secondary to cardiac arrest and pulmonary edema just extubated ICU, cardiology rounding (3) Shock: Code(s): R57.9 - Shock, unspecified Status: Acute Assessment and Plan: BP 67/51 documented in the ED. Central line placed and started on Levophed weaning off vasopressors (4) Acute kidney injury: Code(s): N17.9 - Acute kidney failure, unspecified Status: Acute Assessment and Plan: Baseline creatinine unknown. Creatinine 1.1 on admission CK marginally elevated but not likely to cause renal issues Likely prerenal versus renal versus chronic Started on IV fluids creat is 2.1 (5) Acute hyperglycemia: Code(s): R73.9 - Hyperglycemia, unspecified Status: Acute Assessment and Plan: A1c 5.4. The patient's blood glucose was reviewed on 02/23 sugars are 122 (6) Transaminitis: Code(s): R74.01 - Elevation of levels of liver transaminase levels Status: Acute Assessment and Plan: Normal bilirubin and alkaline phosphatase but elevated AST and ALT likely secondary to shock liver Not on statin therapy prior to admission Renal US showing echogenic liver levels trending down Monitor (7) Elevated troponin: Code(s): R79.89 - Other specified abnormal findings of blood chemistry Status: Acute Assessment and Plan: Troponin elevated likely secondary to CPR and cardiac arrest Patient may have underlying coronary disease but no ST segment elevation [facility] cardiology on board (8) Acidosis: Code(s): E87.20 - Acidosis, unspecified Status: Acute Assessment and Plan: Related to cardiac arrest and anoxia. ABG noted. Treated with IV fluids with bicarb Resolved (9) Anoxic brain injury: Code(s): G93.1 - Anoxic brain damage, not elsewhere classified Status: Acute Assessment and Plan: Patient now having purposeful movement after resuscitation and coling protocol. Head CT negative much improved Plan DVT prophylaxis - lovenox Stress ulcer prophylaxis -PPI Nutrition - npo Code Status - Full Code Subjective Date/time seen: 02/25/24 17:25 Interval history: 69yo female with HTN, asthma and HLD here after having cardiac arrest in the field. CPR by her Pt is extubated little agitated since in ICU Review of Systems Review of Systems: little agitated Exam Narrative: Generally: extubated Neck - left IJ central line Chest - lungs clear anteriorly CV - RRR S1/S2 Abd - soft, ND - Llamas secured draining clear yellow urine. Ext - Nonpitting pedal edema. Objective Data Vital Signs Vital Signs: Vital Signs - 24 hr 02/24/24 18:00 02/24/24 18:00 02/24/24 18:00 Temperature Pulse Rate 82 82 82 Respiratory Rate 18 Blood Pressure 107/49 L Pulse Oximetry Oxygen Delivery Oxygen Flow Rate Fraction of Inspired Oxygen 02/24/24 18:00 02/24/24 19:17 02/24/24 19:17 Temperature 37.5 C Pulse Rate 82 79 79 Respiratory Rate 18 18 18 Blood Pressure 107/49 L Pulse Oximetry 94 Oxygen Delivery
[2024-02-26] VITALS (32 sets, daily range): BP systolic 98–170; BP diastolic 57–107; PULSE 69–97; RESP 14–25; TEMP 37.3–38.2; O2SAT 87–99
[2024-02-26 00:53] LABS: Glucose Point of Care 100 mg/dl (65-105)
[2024-02-26] MEDS: IPRATROPIUM 0.5 MG/ALBUTEROL SULFATE 2.5 MG AMPUL.NEB 3 ML INHALATION ×5 (02:42→20:25)
[2024-02-26 04:51] LABS: Hemoglobin 11.2 g/dL (12.0-15.0); Immature Platelet Fraction Pct 4.5 % (0.9-11.2); Mean Corpuscular Hemoglobin 31.5 pg (26-34); Mean Corpuscular Volume 98.3 fl (80-100); Mean Platelet Volume 10.9 fl (7.4-10.4); Platelet Count Result 136 k/mm3 (150-375); Red Blood Count 3.56 M/mm3 (4.2-5.4); White Blood Count 8.4 K/mm3 (4.5-10.0)
[2024-02-26 05:00] LABS: Alanine Aminotransferase 93 U/L (6-35); Albumin Level 4.1 g/dL (3.5-5.1); Alkaline Phosphatase 43 U/L (38-126); Anion Gap 4 mmol/L (4-12); Aspartate Amino Transferase 82 U/L (14-36); Bilirubin,Total 1.3 mg/dL (0.2-1.3); Blood Urea Nitrogen 33 mg/dL (7-17); Calcium 9.3 mg/dL (8.4-10.2); Carbon Dioxide 32 mmol/L (22-30); Chloride 105 mmol/L (98-107); Estimated CRCL calculation 36 ml/min; Estimated Glomerular Filt Rate 28; Glucose 110 mg/dL (65-110); Magnesium 2.3 mg/dL (1.6-2.3); Phosphorus 3.7 mg/dL (2.5-4.5); Sodium 141 mmol/L (137-145)
[2024-02-26] MEDS: CENTRAL LINE FLUSH 10 ML IV PUSH ×3 (05:27→22:00)
--- NOTE | 2024-02-26 08:06 | WPDINTPN ---
Progress Note: A&P Assessment and Plan (1) Cardiac arrest: Code(s): I46.9 - Cardiac arrest, cause unspecified Status: Acute Assessment and Plan: VT VFib arrest in a patient with some underlying heart disease details of which are unknown. As above mentioned patient was recommended pacemaker AICD placement in 2016 which she refused at that time. She also may have underlying coronary disease. Will try to obtain records Her potassium was low on presentation. -CTA chest negative for PE -BNP slightly elevated. Serial troponin elevated. EKG reviewed and no ST segment elevation [place]. Cardiology consulted -Continue aspirin -off heparin infusion -patient initially started on amiodarone infusion discontinued due to bradycardia hypothermia and prolonged QTc. -Hypokalemia, hypophosphatemia: Resolved -02/24: empiric Zosyn (started on 02/21) -status post target temperature management 02/23/2024: Echocardiogram ?1. Technically difficult exam, definity contrast utilized to improve visualization. ? 2. Normal left ventricular size and systolic contractility. EF 60-65% ? 3. No significant valvular dysfunction. ? 4. Enlarged left atrium. ? 5. ECG rhythm strip during echo appears to show long QT interval. 6. RVSP 29 mmHg (2) Acute kidney injury: Code(s): N17.9 - Acute kidney failure, unspecified Status: Acute Assessment and Plan: Baseline creatinine unknown. Creatinine elevated 1.6 CK marginally elevated Likely prerenal versus renal -status post IV fluids -02/22: renal ultrasound -Mild left renal cortical atrophy. Echogenic liver, most commonly due to steatosis but also can be seen with hepatitis and fibrosis. -urine lytes did not show a prerenal picture, urine eosinophils were negative -CK levels were elevated, patient was given L of IV fluids on 02/24 -02/24: creatinine increased to 2.10 (1.30 on 02/23) -appreciate Nephrology evaluation recommendation -acute kidney injury could be likely related to prerenal, cardiac arrest/hypotension, shock, contrast for CTA -Monitor urine output electrolytes and creatinine 02/25: Creatinine trending down, 1.8 this morning (3) Acute hyperglycemia: Code(s): R73.9 - Hyperglycemia, unspecified Status: Acute Assessment and Plan: No known history of diabetes. Blood sugar elevated could be secondary to stress Continue Accu-Cheks and sliding scale insulin. Status post Lantus -blood sugars much improved -continue to monitor (4) Transaminitis: Code(s): R74.01 - Elevation of levels of liver transaminase levels Status: Acute Assessment and Plan: Normal bilirubin and alkaline phosphatase but elevated AST and ALT likely secondary to shock liver or rhabdo Monitor levels at this time. Hold statin -LFTs trending down, continue to monitor (5) Acute respiratory failure: Code(s): J96.00 - Acute respiratory failure, unspecified whether with hypoxia or hypercapnia Status: Acute Assessment and Plan: Acute Respiratory failure secondary to cardiac arrest, pulmonary edema -02/21: intubated -02/24: Extubated -BiPAP p.r.n. -encourage incentive spirometry -continue Bronchodilators -will have PT/OT evaluate the patient - speech therapy for bedside swallow evaluation (6) Shock: Code(s): R57.9 - Shock, unspecified Status: Acute Assessment and Plan: RESOLVED OFF LEVOPHED Patient received IV fluids on admission -patient was also started on sodium bicarb infusion which was discontinued this morning due to metabolic alkalosis -s/p albumin Empiric Zosyn for aspiration pneumonia. Discontinued on 02/24 -02/21: Blood cultures negative x2 so far -02/21: Urine culture negative -currently afebrile (7) Elevated troponin: Code(s): R79.89 - Other specified abnormal findings of blood chemistry Status: Acute Assessment and Plan: Troponin elevated likely secondary to CPR and cardiac arrest Pat
[2024-02-26] MEDS: BUDESONIDE RESPULE NEB 0.5 MG/2 ML AMP INHALATION ×2 (08:07→20:25)
[2024-02-26 08:42] LABS: Creatine Kinase 1283 U/L (30-135)
[2024-02-26] MEDS: allopurinoL 300 MG TABLET PO (09:12)
[2024-02-26] MEDS: PANTOPRAZOLE SODIUM IV 40 MG VIAL IV PUSH (09:12)
[2024-02-26] MEDS: ENOXAPARIN 40 MG/0.4 ML SYRINGE SUB-Q (09:13)
[2024-02-26] MEDS: ASPIRIN 325 MG TABLET PO (09:28)
--- NOTE | 2024-02-26 10:01 | ECG_ITS ---
SEE SCANNED COPY FOR CONFIRMED REPORT MTDD
--- NOTE | 2024-02-26 10:45 | PCFNICU ---
ICU Rounding Note: Pt current nutrition is Heart Healthy. Last recorded weight is 126.5 kg, down from 126.8 kg on admit. Bowel Motility: +Bm reported 02/25 Labs Reviewed:Cr 1.8,GFR 28, BUN 33, Cr 1.8 Meds Noted: Lovenox, Protonix Skin: WNL Additional Notes: Patient was extubated on 02/24. Bedside Swallow performed 02/25-recommending regular consistencies. Agree with diet orders. Following daily in ICU rounds. Will monitor weight, labs, skin, oral intake and meds every 5 days.
[2024-02-26] MEDS: ALPRAZolam (*CRX) 0.25 MG TABLET PO ×2 (10:53→10:57)
--- NOTE | 2024-02-26 10:54 | PC.NURSE ---
Pt. very anxious and scared. Requesting her home lexapro. Crying continuously. Dr. hollins made aware. See orders for prn xanax.
--- NOTE | 2024-02-26 10:55 | PC.NURSE ---
Pt. oxygen saturations consistently 87-89%. Oxygen increased to 5LNC. Pt. complaining of shortness of breath. Dr. Melvin made aware.
--- NOTE | 2024-02-26 11:12 | PM.PNCARD ---
Progress Note: A&P Assessment and Plan (1) Cardiac arrest: Code(s): I46.9 - Cardiac arrest, cause unspecified Status: Acute Assessment and Plan: Presented as out of hospital VFIB cardiac arrest. Completed hypothermia protocol. Echocardiogram 02/22 shows LVEF 60-65%, no significant valvular disease, moderately enlarged left atrium. EKGs with long QT, however, these were while she was on hypothermia protocol. Not on QT prolonging medications. Will monitor her QT for now. Patient had seen a driver operator back in 2018, and an AICD was recommended at that time, however, patient had declined. We have requested records, but have not received any records as of yet. Now that patient is extubated and recovered more with improving SCr levels, will plan for cardiac catheterization. Patient cannot lay flat today, therefore, cannot do cath today. Will tentatively plan for cath tomorrow if she can lay flat. Will place NPO order at midnight. If cardiac catheterization does not show any obstructive coronary artery disease, then she will need ICD. (2) Shock: Code(s): R57.9 - Shock, unspecified Status: Acute Assessment and Plan: Off of pressors now. (3) Respiratory failure requiring intubation: Code(s): J96.90 - Respiratory failure, unspecified, unspecified whether with hypoxia or hypercapnia Status: Acute Assessment and Plan: Extubated now. (4) Acute kidney injury: Code(s): N17.9 - Acute kidney failure, unspecified Status: Acute Assessment and Plan: SCr is now improving. Nephrology has been consulted. Plan Recommendations and plan discussed with Animal Daycare Provider. Subjective Date/time seen: 02/26/24 11:12 Interval history: Reason for visit: Cardiac arrest HPI: This is a fortunate 69-year-old lady I am seeing after cardiac arrest with which she was admitted yesterday to the ICU.? She is not from this area and is unknown to physicians in this vicinity.? She and her reside in [place] and were traveling to take a family member to [facility] to be deployed in the [employer].? They [place] [address] in this vicinity and having a normal conversation as his suddenly he lost consciousness and was clearly suffering a cardiac arrest.? The pulled the car over and got her onto the ground and started bystander CPR as well as calling 911.? When EMS arrived she was in ventricular fibrillation and resuscitation efforts were continued.? She was defibrillated into an effective rhythm and was transported to [facility] Emergency Room.? Here she was intubated and while in the emergency room had another arrest that was apparently marked by ventricular tachycardia and was once again cardioverted and resuscitated.? She was admitted to the ICU after this was placed on hypothermia protocol she is receiving Levophed and in this setting is being seen in consultation.? Her electrocardiogram shows sinus rhythm with a wider QRS with sometimes complete sometimes incomplete left bundle branch block conduction but no ST segment deviation consistent with acute myocardial infarction.? Troponin levels have risen slightly after this event which of course is expected.? Her chest x-ray shows enlargement of her cardiac silhouette with some fractured ribs from the CPR.? She is on hypothermia protocol still on the ventilator and is unresponsive.? She was placed on intravenous heparin as well.? The patient's is in the room and indicates that she saw a driver operator for consultation back in 2018.? He can not remember the reason for the consultation but he does remember that a defibrillator implant was recommended.? The patient declined this recommendation and has not been followed by driver operator since then.? She does have hypertension and asthma as her principal health problems as well as morbid obesity. Date of service 02/24: Remains intubated, but awake and following commands. Levo
--- NOTE | 2024-02-26 11:40 | PC.NURSE ---
1140-Pt. oxygen saturations dropped into the 70's. She was pulling off all of her leads and oxygen and trying to get out of bed. Very short of breath. Dr. melvin called to bedside. Orders received for lasix and ativan (see MAR) and non-rebreather mask. Pt. now saturating at 99% on the non-rebreather and is more calm. Respirations are now 20. Dr. Melvin updated the at the bedside.
[2024-02-26] MEDS: FUROSEMIDE INJ 40 MG/4 ML VIAL IV PUSH (11:57)
[2024-02-26] MEDS: LORazepam INJ (*CRX) 2 MG/ML VIAL 1 MG IV PUSH (11:57)
--- NOTE | 2024-02-26 12:10 | PM.PNNEP ---
Progress Note: A&P Assessment and Plan (1) Acute kidney injury: Code(s): N17.9 - Acute kidney failure, unspecified Status: Acute Assessment and Plan: improvement noted baseline creatinine unknown admission creatinine 1.1mg/dl -- up to 2.1mg/d by AM labs suspect ATN from: cardiac arrest hypotension/hemodynamic instability/shock contrast exposure prerenal factors ARB + HCTZ + NSAID use prior to admission evaluation to date noted: renal u/s with mild left renal cortical atrophy urine electrolytes are prerenal urine eosinophil negative UA with blood and protein CPK mildly elevated (but no high enough to affect kidney function) follow repeat labs and UOP (2) Cardiac arrest: Code(s): I46.9 - Cardiac arrest, cause unspecified Status: Acute Assessment and Plan: noted Vifib/Vtach arrest unclear if underlying heart disease reported history of recommendation for AICD/pacemaker several years ago Cardiology following s/p TTM protocol will eventually need ischemic evaluation (3) Acute respiratory failure: Code(s): J96.00 - Acute respiratory failure, unspecified whether with hypoxia or hypercapnia Status: Acute Assessment and Plan: resolving secondary to cardiac arrest and pulmonary edema +/- pneumonia CT of chest results noted off ventilator support - extubated weaning once more stable empiric antibiotics for aspiration pneumonia (4) Shock: Code(s): R57.9 - Shock, unspecified Status: Acute Assessment and Plan: improving weaned off levophed gtt s/p aggressive IVF resuscitation on antibiotic for presumed aspiration pneumonia culture data noted to date follow trend of hemodynamics (5) Anemia: Code(s): D64.9 - Anemia, unspecified Status: Acute Assessment and Plan: due to ALONDRA along with acute illness follow trend of H/H (6) Transaminitis: Code(s): R74.01 - Elevation of levels of liver transaminase levels Status: Acute Assessment and Plan: elevated AST and ALT likely secondary to shock liver statin on hold follow trend (which is improving) Will continue to follow. Subjective Date/time seen: 02/26/24 12:10 Interval history: Follow-up for acute kidney injury/acute renal failure. Improvement noted in the last 24 hours -- successfully extubated yesterday with relative stability in respiratory status; weaned off levophed gtt with stable hemodynamics; increased urine output noted along with improvement in renal function/creatinine; LFTs continue to down trend as well. Exam Narrative: General: large female in NAD Heart: normal S1 and S2; no rub Lungs: coarse breath sounds Abdomen: soft, nontender, nondistended, positive bowel sounds Extremities: no cyanosis or clubbing; trace edema Skin: warm and dry Objective Data Vital Signs Vital Signs: Vital Signs Temp Pulse Resp BP Pulse Ox O2 Del Method O2 Flow Rate 02/26/24 12:00 100.2 F H 87 20 143/62 H 95 02/26/24 11:58 85 20 99 Non-Rebreather Mask 15 02/26/24 11:54 85 17 02/26/24 11:47 89 17 02/26/24 10:00 83 02/26/24 10:56 100.2 F H 79 22 H 161/74 H 87 L 02/26/24 10:00 99.9 F H 85 20 141/77 H 89 L 02/26/24 08:00 100.1 F H 86 21 H 122/107 H 90 02/26/24 08:17 78 16 02/26/24 08:10 93 Nasal Cannula 3 02/26/24 08:00 82 16 02/26/24 06:00 73 17 02/26/24 06:00 99.7 F H 72 18 137/68 90 02/26/24 04:00 76 17 02/26/24 05:53 80 02/26/24 02:00 73 16 02/26/24 04:00 99.6 F 84 17 160/66 H 92 02/26/24 04:00 75 18 94 Nasal Cannula 3 02/26/24 04:00 75 160/66 H 02/26/24 04:00 84 02/26/24 02:00 99.2 F 73 16 132/59 L 94 02/26/24 02:00 73 02/26/24 02:55 75 18 02/26/24 02:45 74 17 02/26/24 00:00 76 16
--- NOTE | 2024-02-26 12:10 | P.PNNP_ITS ---
Progress Note: A&P Assessment and Plan (1) Acute kidney injury: Code(s): N17.9 - Acute kidney failure, unspecified Status: Acute Assessment and Plan: * improvement noted * baseline creatinine unknown * admission creatinine 1.1mg/dl -- up to 2.1mg/d by AM labs * suspect ATN from: * cardiac arrest * hypotension/hemodynamic instability/shock * contrast exposure * prerenal factors * ARB + HCTZ + NSAID use prior to admission * evaluation to date noted: * renal u/s with mild left renal cortical atrophy * urine electrolytes are prerenal * urine eosinophil negative * UA with blood and protein * CPK mildly elevated (but no high enough to affect kidney function) * follow repeat labs and UOP (2) Cardiac arrest: Code(s): I46.9 - Cardiac arrest, cause unspecified Status: Acute Assessment and Plan: * noted Vifib/Vtach arrest * unclear if underlying heart disease * reported history of recommendation for AICD/pacemaker several years ago * Cardiology following * s/p TTM protocol * will eventually need ischemic evaluation (3) Acute respiratory failure: Code(s): J96.00 - Acute respiratory failure, unspecified whether with hypoxia or hypercapnia Status: Acute Assessment and Plan: * resolving * secondary to cardiac arrest and pulmonary edema +/- pneumonia * CT of chest results noted * off ventilator support - extubated * weaning once more stable * empiric antibiotics for aspiration pneumonia (4) Shock: Code(s): R57.9 - Shock, unspecified Status: Acute Assessment and Plan: * improving * weaned off levophed gtt * s/p aggressive IVF resuscitation * on antibiotic for presumed aspiration pneumonia * culture data noted to date * follow trend of hemodynamics (5) Anemia: Code(s): D64.9 - Anemia, unspecified Status: Acute Assessment and Plan: * due to ALONDRA along with acute illness * follow trend of H/H (6) Transaminitis: Code(s): R74.01 - Elevation of levels of liver transaminase levels Status: Acute Assessment and Plan: * elevated AST and ALT likely secondary to shock liver * statin on hold * follow trend (which is improving) Will continue to follow. Subjective Date/time seen: 02/26/24 12:10 Interval history: Follow-up for acute kidney injury/acute renal failure. Improvement noted in the last 24 hours -- successfully extubated yesterday with relative stability in respiratory status; weaned off levophed gtt with stable hemodynamics; increased urine output noted along with improvement in renal function/creatinine; LFTs continue to down trend as well. Exam Narrative: General: large female in NAD Heart: normal S1 and S2; no rub Lungs: coarse breath sounds Abdomen: soft, nontender, nondistended, positive bowel sounds Extremities: no cyanosis or clubbing; trace edema Skin: warm and dry Objective Data Vital Signs Vital Signs: Vital Signs Temp Pulse Resp BP Pulse Ox O2 Del Method O2 Flow Rate 02/26/24 12:00 100.2 F H 87 20 143/62 H 95 02/26/24 11:58 85 20 99 Non-Rebreather Mask 15 02/26/24 11:54 85 17 02/26/24 11:47 89 17 02/26/24 10:00 83 02/26/24 10:56 100.2 F H 79 22 H 161/74 H 87 L 02/26/24 10:00 99.9
--- NOTE | 2024-02-26 12:35 | PCSTNOTE ---
Please refer to the Bedside Swallow Evaluation in the EMR. Please note, silent aspiration cannot be ruled out at bedside.
--- NOTE | 2024-02-26 13:29 | PCOTNOTE ---
Per RN, pt is a hold for therapy today due to just having a panic attack and needing to be put on a non-rebreather. Will continue to follow.
--- NOTE | 2024-02-26 14:39 | PM.IMPN ---
Progress Note: A&P Assessment and Plan (1) Cardiac arrest: Code(s): I46.9 - Cardiac arrest, cause unspecified Status: Acute Assessment and Plan: Patient brought in by EMS for VT/VFib cardiac arrest. She has so unknown cardiac conduction abnormality and AICD placement was recommended in 2017 which she refused at that time. She also may have underlying coronary disease. Her potassium was low on admission and has been replaced. CTA chest negative for PE but showed left 4th-7th rib fx, small pleural effusions and airspace and GG opacities in the upper lobes CT brain normal. Just extubated yesterday (2) Acute respiratory failure: Code(s): J96.00 - Acute respiratory failure, unspecified whether with hypoxia or hypercapnia Status: Acute Assessment and Plan: Acute Respiratory failure secondary to cardiac arrest and pulmonary edema just extubated ICU, cardiology rounding (3) Shock: Code(s): R57.9 - Shock, unspecified Status: Acute Assessment and Plan: BP 67/51 documented in the ED. Central line placed and started on Levophed weaning off vasopressors on fluids now pt is on iv zosyn emphericaly (4) Acute kidney injury: Code(s): N17.9 - Acute kidney failure, unspecified Status: Acute Assessment and Plan: Baseline creatinine unknown. Creatinine 1.1 on admission CK marginally elevated but not likely to cause renal issues Likely prerenal versus renal versus chronic Started on IV fluids creat is 1.8 (5) Acute hyperglycemia: Code(s): R73.9 - Hyperglycemia, unspecified Status: Acute Assessment and Plan: A1c 5.4. The patient's blood glucose was reviewed on 02/23 sugars are 122 (6) Transaminitis: Code(s): R74.01 - Elevation of levels of liver transaminase levels Status: Acute Assessment and Plan: Normal bilirubin and alkaline phosphatase but elevated AST and ALT likely secondary to shock liver Not on statin therapy prior to admission Renal US showing echogenic liver levels trending down Monitor (7) Elevated troponin: Code(s): R79.89 - Other specified abnormal findings of blood chemistry Status: Acute Assessment and Plan: Troponin elevated likely secondary to CPR and cardiac arrest Patient may have underlying coronary disease but no ST segment elevation HI cardiology on board pt is on iv heparin and asa (8) Acidosis: Code(s): E87.20 - Acidosis, unspecified Status: Acute Assessment and Plan: Related to cardiac arrest and anoxia. resolved now (9) Anoxic brain injury: Code(s): G93.1 - Anoxic brain damage, not elsewhere classified Status: Acute Assessment and Plan: Patient now having purposeful movement after resuscitation and coling protocol. Head CT negative pt is alert and talkative much improved Plan Subjective Date/time seen: 02/26/24 14:39 Interval history: 69yo female with HTN, asthma and HLD here after having cardiac arrest in the field. CPR by her Pt is extubated little agitated since in ICU Cardiology hoping to do heart cath tomorrow Review of Systems Review of Systems: Pt is anxious Exam Const: Other: anxious and worried Resp: Other: clear lung munoz Cardio: Other: regular rate, regular rhythm, 1+ bilateral radial pulses, weak, thready right pedal pulse, 2+ left pedal pulse GI: Other: obese, soft, hypoactive bowel sounds : Other: Llamas catheter in place Objective Data Vital Signs Vital Signs: Vital Signs - 24 hr 02/25/24 15:02 02/25/24 16:00 02/25/24 16:00 Temperature 37.8 C H Pulse Rate 84 Respiratory Rate 16 Blood Pressure 146/69 H Pulse Oximetry 93 93 98 Oxygen Delivery Nasal Cannula Nasal Cannula Oxygen Flow Rate 3 3 02/25/24 16:00 02/25/24 17:08 02/25/24 18:00 [facility]
[2024-02-26 16:43] LABS: Glucose Point of Care 87 mg/dl (65-105)
[2024-02-26] MEDS: ALPRAZolam (*CRX) 0.5 MG TABLET PO (17:12)
[2024-02-26] MEDS: ESCITALOPRAM OXALATE 10 MG TABLET 20 MG PO (17:12)
[2024-02-26] MEDS: hydrALAZINE HCL 20 MG/ML VIAL 10 MG IV PUSH (17:58)
--- NOTE | 2024-02-26 18:05 | PC.NURSE ---
Severe weather alert. Patient moved to hallway without issue.
--- NOTE | 2024-02-26 18:30 | PC.NURSE ---
Patient returned to room without issue after all clear given for Severe weather.
[2024-02-26] MEDS: dexmedeTOMIDine 400 MCG/100 ML 400 MCG/100 ML BAG 9.49 MCG IV CONT (20:16)
[2024-02-27] VITALS (37 sets, daily range): BP systolic 115–159; BP diastolic 52–84; PULSE 67–94; RESP 14–23; TEMP 36.8–38.6; O2SAT 68–99
[2024-02-27] MEDS: IPRATROPIUM 0.5 MG/ALBUTEROL SULFATE 2.5 MG AMPUL.NEB 3 ML INHALATION ×3 (02:00→19:47)
[2024-02-27 05:15] LABS: Basophils Absolute Auto 0.1 K/mm3 (0.0-0.1); Basophils Percent Auto 0.6 % (0.2-1.2); Eosinophils Absolute Auto 0.1 K/mm3 (0-0.3); Eosinophils Percent Auto 1.4 % (0-4.4); Hematocrit 34.3 % (37.0-47.0); Hemoglobin 11.1 g/dL (12.0-15.0); Immature Granulocyte Absolute 0.04 K/mm3 (0.00-0.031); Immature Granulocyte Percent A 0.5 % (0-0.5); Lymphocytes Absolute Auto 1.56 K/mm3 (0.9-3.2); Mean Corpuscular HGB Conc 32.4 g/dl (32-36); Mean Corpuscular Hemoglobin 31.1 pg (26-34); Mean Corpuscular Volume 96.1 fl (80-100); Mean Platelet Volume 10.4 fl (7.4-10.4); Monocytes Absolute Auto 0.5 K/mm3 (0.1-0.6); Monocytes Percent Auto 6.5 % (2.6-8.5); Neutrophils Absolute Auto 5.5 K/mm3 (1.3-6.7); Platelet Count Result 144 k/mm3 (150-375); Red Blood Count 3.57 M/mm3 (4.2-5.4); Red Cell Distribution Width 14.2 % (11.5-14.5); White Blood Count 7.8 K/mm3 (4.5-10.0)
[2024-02-27 05:37] LABS: Prothrombin Time 14.2 Seconds (11.1-14.7)
[2024-02-27 05:38] LABS: Partial Thromboplastin Time 30.6 Seconds (22.3-36.8)
[2024-02-27] MEDS: CENTRAL LINE FLUSH 10 ML IV PUSH ×3 (05:47→21:05)
[2024-02-27 05:59] LABS: Lactic Acid Reflex 0.9 mmol/L (0.7-2.0)
[2024-02-27 06:00] LABS: Alanine Aminotransferase 70 U/L (6-35); Albumin Level 3.8 g/dL (3.5-5.1); Alkaline Phosphatase 51 U/L (38-126); Anion Gap 3 mmol/L (4-12); Aspartate Amino Transferase 67 U/L (14-36); Bilirubin,Total 1.8 mg/dL (0.2-1.3); Blood Urea Nitrogen 28 mg/dL (7-17); Calcium 9.7 mg/dL (8.4-10.2); Carbon Dioxide 32 mmol/L (22-30); Chloride 101 mmol/L (98-107); Creatine Kinase 533 U/L (30-135); Estimated CRCL calculation 44 ml/min; Estimated Glomerular Filt Rate 34; Glucose 112 mg/dL (65-110); Magnesium 2.4 mg/dL (1.6-2.3); Phosphorus 3.4 mg/dL (2.5-4.5); Potassium 3.7 mmol/L (3.4-5.0); Sodium 136 mmol/L (137-145)
[2024-02-27] MEDS: dexmedeTOMIDine 400 MCG/100 ML 400 MCG/100 ML BAG 6.33 MCG IV CONT (07:13)
--- NOTE | 2024-02-27 07:47 | PM.PNCARD ---
Progress Note: A&P Assessment and Plan (1) Cardiac arrest: Code(s): I46.9 - Cardiac arrest, cause unspecified Status: Acute Plan 69-year-old lady with: Out of hospital VFib arrest leading suspicion is that this lady has long QT syndrome as a design architect a number of years ago in her hometown area recommended a defibrillator with which she declined. She has remarkably recovered from her out of hospital arrest is appears to be neurologically intact which is primarily thanks to immediate bystander CPR from her and immediate resuscitation from EMS. As stated in our previous notes the appropriate plan would be to bring this lady for coronary angiography to ensure that this was not an ischemically driven event after which a decision would be made to implant a defibrillator for secondary prevention. Spoke to the patient and at length this morning they are firm in their decision that they do not wish to have any procedures done here at [facility] or the [facility] understanding that her her life is in danger since she is a rescued of a VFib arrest patient and has not completed her evaluation and does not have an ICD device at this time. They understand these risks and wished to be discharged when she is stable enough to travel in their vehicle back to [place]. I made it clear in the course of this conversation that this is certainly not what I would recommend and does not represent appropriate cardiovascular care in this situation. Another principal reason they after making this decision his the financial hardship that it is imposing on them to have the stay here in a local hotel for a good length of time while she remains hospitalized here for this treatment and evaluation. I made it clear that there is of course some risk of recurrent cardiac arrest while they were traveling especially while she is unprotected with no defibrillator and these decision might result in her untimely demise that might have otherwise been prevented. We therefore do not plan on any procedures of any kind to be done here at [facility] we will assist with her in-hospital management and then upon their departure they will need to establish care with physicians and Cardiovascular Consultants in their hometown area in [place] Ras Kunz MD [facility] Subjective Date/time seen: Date of service: 02/27/24 07:47 Interval history: Reason for visit: Cardiac arrest HPI: This is a fortunate 69-year-old lady I am seeing after cardiac arrest with which she was admitted yesterday to the ICU.? She is not from this area and is unknown to physicians in this vicinity.? 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 They [place] [address] in this vicinity and having a normal conversation as his suddenly he lost consciousness and was clearly suffering a cardiac arrest.? The pulled the car over and got her onto the ground and started bystander CPR as well as calling 911.? When EMS arrived she was in ventricular fibrillation and resuscitation efforts were continued.? She was defibrillated into an effective rhythm and was transported to [facility] Emergency Room.? Here she was intubated and while in the emergency room had another arrest that was apparently marked by ventricular tachycardia and was once again cardioverted and resuscitated.? She was admitted to the ICU after this was placed on hypothermia protocol she is receiving Levophed and in this setting is being seen in consultation.? Her electrocardiogram shows sinus rhythm with a wider QRS with sometimes complete sometimes incomplete left bundle branch block conduction but no ST segment deviation consistent with acute myocardial infarction.? Troponin levels have risen slightly after this event which of course is expected.? Her chest x-ray shows enlargement of her cardiac silhouette w
[2024-02-27] MEDS: BUDESONIDE RESPULE NEB 0.5 MG/2 ML AMP INHALATION ×2 (07:57→19:47)
[2024-02-27] MEDS: ASPIRIN 81 MG CHEWABLE TABLET PO (08:00)
[2024-02-27] MEDS: ENOXAPARIN 40 MG/0.4 ML SYRINGE SUB-Q (08:00)
[2024-02-27] MEDS: FUROSEMIDE INJ 40 MG/4 ML VIAL IV PUSH (08:00)
[2024-02-27] MEDS: allopurinoL 300 MG TABLET PO (08:00)
[2024-02-27] MEDS: PANTOPRAZOLE SODIUM IV 40 MG VIAL IV PUSH (08:00)
[2024-02-27] MEDS: ESCITALOPRAM OXALATE 10 MG TABLET 20 MG PO (08:00)
[2024-02-27] MEDS: ALPRAZolam (*CRX) 0.5 MG TABLET PO ×3 (08:00→21:01)
[2024-02-27 08:13] LABS: Glucose Point of Care 95 mg/dl (65-105)
--- NOTE | 2024-02-27 09:17 | P.PNNP_ITS ---
Progress Note: A&P Assessment and Plan (1) Acute kidney injury: Code(s): N17.9 - Acute kidney failure, unspecified Status: Acute Assessment and Plan: * improvement noted * baseline creatinine unknown * admission creatinine 1.1mg/dl -- peaked at 2.1mg/dl * suspect ATN from: * cardiac arrest * hypotension/hemodynamic instability/shock * contrast exposure * prerenal factors * ARB + HCTZ + NSAID use prior to admission * evaluation to date noted: * renal u/s with mild left renal cortical atrophy * urine electrolytes are prerenal * urine eosinophil negative * UA with blood and protein * CPK mildly elevated (but no high enough to affect kidney function) * follow repeat labs and UOP (2) Cardiac arrest: Code(s): I46.9 - Cardiac arrest, cause unspecified Status: Acute Assessment and Plan: * noted Vifib/Vtach arrest * unclear if underlying heart disease * reported history of recommendation for AICD/pacemaker several years ago * Cardiology following * s/p TTM protocol * will eventually need ischemic evaluation (3) Acute respiratory failure: Code(s): J96.00 - Acute respiratory failure, unspecified whether with hypoxia or hypercapnia Status: Acute Assessment and Plan: * resolving * secondary to cardiac arrest and pulmonary edema +/- pneumonia * CT of chest results noted * off ventilator support - extubated * IV diuretic PRN for pulmonary edema (4) Shock: Code(s): R57.9 - Shock, unspecified Status: Acute Assessment and Plan: * resolved * weaned off levophed gtt * s/p aggressive IVF resuscitation * off antibiotics * culture data noted to date * follow trend of hemodynamics (5) Anemia: Code(s): D64.9 - Anemia, unspecified Status: Acute Assessment and Plan: * due to ALONDRA along with acute illness * follow trend of H/H (6) Transaminitis: Code(s): R74.01 - Elevation of levels of liver transaminase levels Status: Acute Assessment and Plan: * elevated AST and ALT likely secondary to shock liver * statin on hold * follow trend (which is improving) Will continue to follow. Subjective Date/time seen: 02/27/24 09:17 Interval history: Follow-up for acute kidney injury/acute renal failure. Respiratory status remains tenuous at this time -- still requiring significant supplemental oxygen with fluctuating hypoxia overnight but with reasonably response to BiPAP; making reasonable urine output and responsive to IV diuretics; reports shortness of breath in association with anxiety currently; notes worsening shortness of breath when laying flat as well. Exam Narrative: General: large female in NAD Heart: normal S1 and S2; no rub Lungs: coarse breath sounds; decreased at bases Abdomen: soft, nontender, nondistended, positive bowel sounds Extremities: no cyanosis or clubbing; trace edema Skin: warm and intact Objective Data Vital Signs Vital Signs: Vital Signs Temp Pulse Resp BP Pulse Ox Pulse Ox O2 Del Method 02/27/24 09:05 77 14 95 BiPAP 02/27/24 08:00 99.1 F 70 19 152/84 H 99 02/27/24 08:00 70 19 99 Nasal Cannula 02/27/24 08:00 70 02/27/24 08:12 75 20 02/27/24 07:58 70 18 02/27/24 07:58 92 Nasal
--- NOTE | 2024-02-27 09:17 | PM.PNNEP ---
Progress Note: A&P Assessment and Plan (1) Acute kidney injury: Code(s): N17.9 - Acute kidney failure, unspecified Status: Acute Assessment and Plan: improvement noted baseline creatinine unknown admission creatinine 1.1mg/dl -- peaked at 2.1mg/dl suspect ATN from: cardiac arrest hypotension/hemodynamic instability/shock contrast exposure prerenal factors ARB + HCTZ + NSAID use prior to admission evaluation to date noted: renal u/s with mild left renal cortical atrophy urine electrolytes are prerenal urine eosinophil negative UA with blood and protein CPK mildly elevated (but no high enough to affect kidney function) follow repeat labs and UOP (2) Cardiac arrest: Code(s): I46.9 - Cardiac arrest, cause unspecified Status: Acute Assessment and Plan: noted Vifib/Vtach arrest unclear if underlying heart disease reported history of recommendation for AICD/pacemaker several years ago Cardiology following s/p TTM protocol will eventually need ischemic evaluation (3) Acute respiratory failure: Code(s): J96.00 - Acute respiratory failure, unspecified whether with hypoxia or hypercapnia Status: Acute Assessment and Plan: resolving secondary to cardiac arrest and pulmonary edema +/- pneumonia CT of chest results noted off ventilator support - extubated IV diuretic PRN for pulmonary edema (4) Shock: Code(s): R57.9 - Shock, unspecified Status: Acute Assessment and Plan: resolved weaned off levophed gtt s/p aggressive IVF resuscitation off antibiotics culture data noted to date follow trend of hemodynamics (5) Anemia: Code(s): D64.9 - Anemia, unspecified Status: Acute Assessment and Plan: due to ALONDRA along with acute illness follow trend of H/H (6) Transaminitis: Code(s): R74.01 - Elevation of levels of liver transaminase levels Status: Acute Assessment and Plan: elevated AST and ALT likely secondary to shock liver statin on hold follow trend (which is improving) Will continue to follow. Subjective Date/time seen: 02/27/24 09:17 Interval history: Follow-up for acute kidney injury/acute renal failure. Respiratory status remains tenuous at this time -- still requiring significant supplemental oxygen with fluctuating hypoxia overnight but with reasonably response to BiPAP; making reasonable urine output and responsive to IV diuretics; reports shortness of breath in association with anxiety currently; notes worsening shortness of breath when laying flat as well. Exam Narrative: General: large female in NAD Heart: normal S1 and S2; no rub Lungs: coarse breath sounds; decreased at bases Abdomen: soft, nontender, nondistended, positive bowel sounds Extremities: no cyanosis or clubbing; trace edema Skin: warm and intact Objective Data Vital Signs Vital Signs: Vital Signs Temp Pulse Resp BP Pulse Ox Pulse Ox O2 Del Method 02/27/24 09:05 77 14 95 BiPAP 02/27/24 08:00 99.1 F 70 19 152/84 H 99 02/27/24 08:00 70 19 99 Nasal Cannula 02/27/24 08:00 70 02/27/24 08:12 75 20 02/27/24 07:58 70 18 02/27/24 07:58 92 Nasal Cannula 02/27/24 07:13 72 19 02/27/24 07:13 72 19 02/26/24 22:00 78 18 02/27/24 00:00 69 17 02/27/24 04:00 69 18 02/27/24 06:00 67 22 H 02/27/24 06:00 98.5 F 67 22 H 138/64 97 02/27/24 06:00 67 02/27/24 04:00 98.3 F 69 18 68 L 02/27/24 00:00 99.1 F 69 17 130/69 97 02/27/24 04:00 69 02/27/24 00:00 69 02/27/24 04:00 99 Nasal Cannula 02/27/24 02:00 67 15 98 BiPAP 02/26/24 20:27 94 Nasal Cannula 02/27/24 02:50 69 15 02/27/24 02:40 67 15 02/27/24 00:00 97 BiPAP 02/26/24 23:00 74 20 97 BiPAP 02/26/24 21:05
--- NOTE | 2024-02-27 09:37 | WPDINTPN ---
Progress Note: A&P Assessment and Plan (1) Cardiac arrest: Code(s): I46.9 - Cardiac arrest, cause unspecified Status: Acute Assessment and Plan: VT VFib arrest in a patient with some underlying heart disease details of which are unknown. As above mentioned patient was recommended pacemaker AICD placement in 2016 which she refused at that time. She also may have underlying coronary disease. Will try to obtain records -CTA chest negative for PE -Continue aspirin -Hypokalemia, hypophosphatemia: Resolved -02/24: Discontinued Zosyn (started on 02/21) -status post target temperature management 02/26: Cardiology discussed with the patient and her at length regarding coronary angiogram to which initially the refused any procedures at [place] was seen [facility] and understood that her life may be in danger if she does not have a complete evaluation. The then spoke to me that he needs a planned and that he may sign out AMA. The after discussing with the daughter stated he wanted all procedures to be done on in the angiogram at our hospital. The strand forming machine operator and myself went back into the room and discussed at length with the patient and the , both are agreeable to have the angiogram dated [facility]. I then asked the bedside RN to lay the patient flat as she is on 6 L oxygen via nasal cannula, patient was unable to lay flat even for a couple of minutes and was stating that she could not breathe. The strand forming machine operator and myself again discussed this pending of not being able to lay flat during the cardiac angiogram which would be very essential. The strand forming machine operator and myself did recognize that patient is having some financial, social and personal difficulties. Both of them did understand that the coronary angiogram will not be able to take place today on 02/27/2024 due to patient not being able to lay flat on the cardiac catheterization stable. I updated the patient and the that we are going to diurese the patient and improve her respiratory status before she can lay flat for the angiogram procedure. Both of them did understand. Also spoke to the daughter Shruti, over the phone and explained to her the above, she does understand and comprehend, stated that she will be coming with her brother's tomorrow on 02/28/2024. 02/23/2024: Echocardiogram ?1. Technically difficult exam, definity contrast utilized to improve visualization. ? 2. Normal left ventricular size and systolic contractility. EF 60-65% ? 3. No significant valvular dysfunction. ? 4. Enlarged left atrium. ? 5. ECG rhythm strip during echo appears to show long QT interval. 6. RVSP 29 mmHg (2) Acute kidney injury: Code(s): N17.9 - Acute kidney failure, unspecified Status: Acute Assessment and Plan: Baseline creatinine unknown. Creatinine elevated 1.6 CK marginally elevated Likely prerenal versus renal -status post IV fluids -02/22: renal ultrasound -Mild left renal cortical atrophy. Echogenic liver, most commonly due to steatosis but also can be seen with hepatitis and fibrosis. -urine lytes did not show a prerenal picture, urine eosinophils were negative -CK levels were elevated, patient was given L of IV fluids on 02/24 -02/24: creatinine increased to 2.10 (1.30 on 02/23) -appreciate Nephrology evaluation recommendation -acute kidney injury could be likely related to prerenal, cardiac arrest/hypotension, shock, contrast for CTA -Monitor urine output electrolytes and creatinine 02/25: Creatinine trending down, 1.8 this morning (3) Acute hyperglycemia: Code(s): R73.9 - Hyperglycemia, unspecified Status: Acute Assessment and Plan: No known history of diabetes. Blood sugar elevated could be secondary to stress Continue Accu-Cheks and sliding scale insulin. Status post Lantus -blood sugars much improved -continue to monitor (4) Transaminitis: Code(s): R74.01 - El
--- NOTE | 2024-02-27 11:01 | PCNFU ---
Nutrition Follow-Up Complete: Inadequate Energy Intake as related to mechanical ventilation as evidenced by NPO. Goal: Meet estimated nutritional needs. Patient is progressing towards goal. We will continue with current goal. Pt current nutrition is Heart Healthy. Last recorded weight is 134.4 kg, up from 132,8 kg on admit. Bowel Motility: +BM reported 02/25 Labs Reviewed:Glu l112, BUN 28, GFR 34, Na 136, Hct 34.3,Hgb 11.1 Meds Noted: Zosyn, Lasix,Precedex. Skin: WNL Additional Notes: Patient had been NPO for possible procedure. No procedure today. Diet order advanced to heart healthy diet. Agree with diet orders. Will monitor weight, labs, skin, tube feeding tolerance, and meds every 5 days.
[2024-02-27 11:53] LABS: Glucose Point of Care 92 mg/dl (65-105)
[2024-02-27] MEDS: ACETAMINOPHEN ELIXIR 325 MG/10.15 ML UDC 650 MG PO ×2 (11:58→21:00)
--- NOTE | 2024-02-27 14:32 | PM.IMPN ---
Progress Note: A&P Assessment and Plan (1) Cardiac arrest: Code(s): I46.9 - Cardiac arrest, cause unspecified Status: Acute Assessment and Plan: Patient brought in by EMS for VT/VFib cardiac arrest. She has some underlying cardiac conduction abnormality and AICD placement was recommended in 2017 which she refused at that time. She also may have underlying coronary disease. CTA chest negative for PE but showed left 4th-7th rib fx, small pleural effusions and airspace and GG opacities in the upper lobes CT brain normal. Status post targeted temperature management Cardiology recommended coronary angiogram which family refused Echo: EF 60-65% no significant valvular dysfunction. (2) Acute respiratory failure: Code(s): J96.00 - Acute respiratory failure, unspecified whether with hypoxia or hypercapnia Status: Acute Assessment and Plan: Acute Respiratory failure secondary to cardiac arrest and pulmonary edema Extubated 02/25/2024 Oxygen supplementation via nasal cannula BiPAP p.r.n. Bronchodilators and incentive spirometry Diuresis for pulmonary edema ICU, cardiology rounding (3) Shock: Code(s): R57.9 - Shock, unspecified Status: Acute Assessment and Plan: BP 67/51 documented in the ED. Central line placed and started on Levophed She is off vasopressor now Pancultured on admission Blood culture remained negative to date urine culture negative Off antibiotics (4) Acute kidney injury: Code(s): N17.9 - Acute kidney failure, unspecified Status: Acute Assessment and Plan: Baseline creatinine unknown. Creatinine 1.1 on admission CK marginally elevated but not likely to cause renal issues Likely prerenal versus renal versus chronic Renal ultrasound with mild left renal cortical atrophy. Echogenic liver most commonly due to steatosis Nephrology was consulted Creatinine trending down now (5) Acute hyperglycemia: Code(s): R73.9 - Hyperglycemia, unspecified Status: Acute Assessment and Plan: A1c 5.4. The patient's blood glucose was reviewed on 02/23 sugars are 122 (6) Transaminitis: Code(s): R74.01 - Elevation of levels of liver transaminase levels Status: Acute Assessment and Plan: Normal bilirubin and alkaline phosphatase but elevated AST and ALT likely secondary to shock liver Not on statin therapy prior to admission Renal US showing echogenic liver levels trending down Monitor (7) Elevated troponin: Code(s): R79.89 - Other specified abnormal findings of blood chemistry Status: Acute Assessment and Plan: Troponin elevated likely secondary to CPR and cardiac arrest Patient may have underlying coronary disease but no ST segment elevation TN cardiology on board Patient on aspirin Treated with IV heparin initially Hold statin due to elevated LFTs Not on beta-kareem due to shock (8) Acidosis: Code(s): E87.20 - Acidosis, unspecified Status: Acute Assessment and Plan: Related to cardiac arrest and anoxia. resolved now (9) Anoxic brain injury: Code(s): G93.1 - Anoxic brain damage, not elsewhere classified Status: Acute Assessment and Plan: Patient now having purposeful movement after resuscitation and coling protocol. Head CT negative pt is alert and talkative much improved Plan DVT prophylaxis Lovenox Code status full code Subjective Date/time seen: 02/27/24 14:32 Interval history: Events noted. Discussed with the at bedside. Remains on oxygen also placed on Precedex drip due to agitation overnight. Review of Systems Review of Systems: All systems reviewed & are unremarkable except as noted in HPI and below Exam Narrative: General: Patient is awake, alert, in no acute distress HEENT: Pupils are equal and reactive, sclera is clear, Lungs/Chest: Trachea central Coars
[2024-02-27 14:53] LABS: Chloride Rand Ur <20 mmol/L (32-290); Creatinine Random Urine 210 mg/dL (20-275)
--- NOTE | 2024-02-27 15:16 | HOMEO2EVAL ---
Evaluation was performed at [facility] Home Oxygen Evaluation RC: Home Oxygen (O2) Evaluation Start: 02/27/24 14:03 Freq: ONCE Status: Active Protocol: RPE Activity Type Activity Date Activity User E-sign Co-sign Detail Recorded Client Recorded Date Recorded By Document 02/27/24 14:30 [email or web address] [email or web address] 02/27/24 15:16 DJO Document 02/27/24 14:31 [email or web address] [email or web address] 02/27/24 15:16 DJO Document 02/27/24 14:32 [email or web address] [email or web address] 02/27/24 15:16 DJO Document 02/27/24 14:33 [email or web address] [email or web address] 02/27/24 15:16 DJO Document 02/27/24 14:35 [email or web address] [email or web address] 02/27/24 15:16 DJO Document 02/27/24 14:36 [email or web address] [email or web address] 02/27/24 15:16 DJO Document 02/27/24 14:37 [email or web address] [email or web address] 02/27/24 15:16 DJO Document 02/27/24 14:45 [email or web address] [email or web address] 02/27/24 15:16 DJO 02/27/24 02/27/24 02/27/24 14:30 14:31 14:32 Home O2 Evaluation [Oxygen] -Test Phase Resting Resting Resting -Oxygen Delivery Room Air Nasal Cannula Nasal Cannula -Oxygen Flow Rate (L/min) 2 3 [Pulse Oximetry] -Pulse Oximetry (90-100 %) 87 L 87 L 87 L [Pulse Rate] -Pulse Rate (60-100 beats/min) 87 [Comments] -Home Oxygen Evaluation Comments [Charges] -Evaluation Charges O2 Evaluation by Pulmonary 02/27/24 02/27/24 02/27/24 14:33 14:35 14:36 Home O2 Evaluation [Oxygen] -Test Phase Resting Exercise Exercise -Oxygen Delivery Nasal Cannula Nasal Cannula Nasal Cannula -Oxygen Flow Rate (L/min) 4 4 5 [Pulse Oximetry] -Pulse Oximetry (90-100 %) 93 86 L 87 L [Pulse Rate] -Pulse Rate (60-100 beats/min) 92 94 [Comments] -Home Oxygen Evaluation Comments [Charges] -Evaluation Charges 02/27/24 02/27/24 14:37 14:45 Home O2 Evaluation [Oxygen] -Test Phase Exercise Resting -Oxygen Delivery Nasal Cannula Nasal Cannula -Oxygen Flow Rate (L/min) 6 4 [Pulse Oximetry] -Pulse Oximetry (90-100 %) 90 93 [Pulse Rate] -Pulse Rate (60-100 beats/min) 93 80 [Comments] -Home Oxygen Evaluation Comments PT REQUIRES 4 L AT REST AND 6 L WITH ACTIVITY [Charges] -Evaluation Charges
--- NOTE | 2024-02-27 15:16 | PCRCNOTE ---
HOME O2 EVAL DONE, PT REQUIRES 4 L AT REST AND 6 L WITH ACTIVITY. PT LIVES IN [place] AND IS PLANNING TO TRAVEL BACK HOME [place]. WE SET UP HOME O2 WITH [employer]ING AND WILL GIVE PT 4 TANKS TO TRAVEL WITH WHEN THEY ARE READY TO D/C. [employer], WORKS WITH [employer] WH[facility] HAS A OFFICE IN [facility], WHERE THEY ARE HEADING. [facility] OFFICE # WHEN PT IS HOME THIS IS WHO THEY WILL CONTACT TO ARRANGE
[2024-02-27 16:55] LABS: Glucose Point of Care 105 mg/dl (65-105)
[2024-02-27 20:48] LABS: Glucose Point of Care 99 mg/dl (65-105)
[2024-02-28] VITALS (23 sets, daily range): BP systolic 129–167; BP diastolic 59–125; PULSE 66–91; RESP 12–29; TEMP 37.1–38; O2SAT 94–100
[2024-02-28] MEDS: IPRATROPIUM 0.5 MG/ALBUTEROL SULFATE 2.5 MG AMPUL.NEB 3 ML INHALATION ×4 (02:03→20:47)
[2024-02-28 04:43] LABS: Hematocrit 35.2 % (37.0-47.0); Hemoglobin 11.5 g/dL (12.0-15.0); Mean Corpuscular HGB Conc 32.7 g/dl (32-36); Mean Corpuscular Hemoglobin 31.5 pg (26-34); Mean Corpuscular Volume 96.4 fl (80-100); Mean Platelet Volume 10.3 fl (7.4-10.4); Platelet Count Result 156 k/mm3 (150-375); Red Blood Count 3.65 M/mm3 (4.2-5.4); White Blood Count 6.9 K/mm3 (4.5-10.0)
[2024-02-28 05:00] LABS: Alanine Aminotransferase 59 U/L (6-35); Albumin Level 3.7 g/dL (3.5-5.1); Alkaline Phosphatase 50 U/L (38-126); Anion Gap 4 mmol/L (4-12); Aspartate Amino Transferase 51 U/L (14-36); Bilirubin,Total 1.3 mg/dL (0.2-1.3); Blood Urea Nitrogen 24 mg/dL (7-17); Calcium 9.5 mg/dL (8.4-10.2); Carbon Dioxide 32 mmol/L (22-30); Chloride 101 mmol/L (98-107); Estimated CRCL calculation 51 ml/min; Estimated Glomerular Filt Rate 41; Glucose 96 mg/dL (65-110); Magnesium 2.3 mg/dL (1.6-2.3); Phosphorus 3.4 mg/dL (2.5-4.5); Potassium 3.5 mmol/L (3.4-5.0); Sodium 137 mmol/L (137-145)
[2024-02-28] MEDS: ALPRAZolam (*CRX) 0.5 MG TABLET PO (06:36)
[2024-02-28] MEDS: CENTRAL LINE FLUSH 10 ML IV PUSH ×3 (07:00→22:11)
[2024-02-28 08:07] LABS: Glucose Point of Care 110 mg/dl (65-105)
--- NOTE | 2024-02-28 08:25 | PC.NURSE ---
Rn to bedside. Patient coughing after eating sausage pernell. O2 dropped to 85%. Patient sitting up for meal. patient able to dislodge piece of sausage. Dr. hollins updated, swallow evaluation order. Patient O2 saturation at 95% without further intervention. Patient kept NPO except for medications
[2024-02-28] MEDS: BUDESONIDE RESPULE NEB 0.5 MG/2 ML AMP INHALATION ×2 (08:26→20:47)
--- NOTE | 2024-02-28 09:24 | WPDINTPN ---
Progress Note: A&P Assessment and Plan (1) Cardiac arrest: Code(s): I46.9 - Cardiac arrest, cause unspecified Status: Acute Assessment and Plan: VT VFib arrest in a patient with some underlying heart disease details of which are unknown. As above mentioned patient was recommended pacemaker AICD placement in 2016 which she refused at that time. She also may have underlying coronary disease. Will try to obtain records -CTA chest negative for PE -Continue aspirin -Hypokalemia: Will replete potassium -02/24: Discontinued Zosyn (started on 02/21) -status post target temperature management 02/26: Cardiology discussed with the patient and her at length regarding coronary angiogram to which initially the refused any procedures at [place] was seen [facility] and understood that her life may be in danger if she does not have a complete evaluation. The then spoke to me that he needs a planned and that he may sign out AMA. The after discussing with the daughter stated he wanted all procedures to be done on in the angiogram at our hospital. The nicu rn and myself went back into the room and discussed at length with the patient and the , both are agreeable to have the angiogram dated [facility]. I then asked the bedside RN to lay the patient flat as she is on 6 L oxygen via nasal cannula, patient was unable to lay flat even for a couple of minutes and was stating that she could not breathe. The nicu rn and myself again discussed this pending of not being able to lay flat during the cardiac angiogram which would be very essential. The nicu rn and myself did recognize that patient is having some financial, social and personal difficulties. Both of them did understand that the coronary angiogram will not be able to take place today on 02/27/2024 due to patient not being able to lay flat on the cardiac catheterization stable. I updated the patient and the that we are going to diurese the patient and improve her respiratory status before she can lay flat for the angiogram procedure. Both of them did understand. Also spoke to the daughter Shruti, over the phone and explained to her the above, she does understand and comprehend, stated that she will be coming with her brother's tomorrow on 02/28/2024. 02/23/2024: Echocardiogram ?1. Technically difficult exam, definity contrast utilized to improve visualization. ? 2. Normal left ventricular size and systolic contractility. EF 60-65% ? 3. No significant valvular dysfunction. ? 4. Enlarged left atrium. ? 5. ECG rhythm strip during echo appears to show long QT interval. 6. RVSP 29 mmHg (2) Acute kidney injury: Code(s): N17.9 - Acute kidney failure, unspecified Status: Acute Assessment and Plan: Baseline creatinine unknown. Creatinine elevated 1.6 CK marginally elevated Likely prerenal versus renal -status post IV fluids -02/22: renal ultrasound -Mild left renal cortical atrophy. Echogenic liver, most commonly due to steatosis but also can be seen with hepatitis and fibrosis. -urine lytes did not show a prerenal picture, urine eosinophils were negative -CK levels were elevated, patient was given L of IV fluids on 02/24 -02/24: creatinine increased to 2.10 (1.30 on 02/23) -appreciate Nephrology evaluation recommendation -acute kidney injury could be likely related to prerenal, cardiac arrest/hypotension, shock, contrast for CTA -Monitor urine output electrolytes and creatinine -patient with very good urine output in response to diuresis, creatinine continues to improve -continue diuresis (3) Acute hyperglycemia: Code(s): R73.9 - Hyperglycemia, unspecified Status: Acute Assessment and Plan: No known history of diabetes. Blood sugar elevated could be secondary to stress Continue Accu-Cheks and sliding scale insulin. Status post Lantus -blood sugars much improved -continue to
[2024-02-28] MEDS: ASPIRIN 81 MG CHEWABLE TABLET PO (09:39)
[2024-02-28] MEDS: ALPRAZolam (*CRX) 0.5 MG TABLET 1 MG PO ×2 (09:40→17:15)
[2024-02-28] MEDS: ENOXAPARIN 40 MG/0.4 ML SYRINGE SUB-Q (09:40)
[2024-02-28] MEDS: PANTOPRAZOLE SODIUM IV 40 MG VIAL IV PUSH (09:41)
[2024-02-28] MEDS: FUROSEMIDE INJ 40 MG/4 ML VIAL IV PUSH (09:41)
[2024-02-28] MEDS: ESCITALOPRAM OXALATE 10 MG TABLET 20 MG PO (09:41)
[2024-02-28] MEDS: allopurinoL 300 MG TABLET PO (09:41)
[2024-02-28] MEDS: POTASSIUM CHLORIDE 20 MEQ PACKET (FOR LIQUID) 40 MEQ PO ×2 (09:54→17:19)
--- NOTE | 2024-02-28 10:08 | PM.PNCARD ---
Progress Note: A&P Assessment and Plan (1) Cardiac arrest: Code(s): I46.9 - Cardiac arrest, cause unspecified Status: Acute Assessment and Plan: Possibly related to long QT syndrome. Need to coronary angiogram. She and her are present today for discussion in are both agreeable. Plan will be to undergo angiogram on Friday if she is able to lay flat. This may be a problem because even at baseline she has difficulty lying flat. She still has some pulmonary edema by chest x-ray and will continue to diurese. Hopefully will be over the have her lay flat by Friday. After that she then should have ICD placed which will require transfer. (2) Anoxic brain injury: Code(s): G93.1 - Anoxic brain damage, not elsewhere classified Status: Acute Assessment and Plan: Improving (3) Acute kidney injury: Code(s): N17.9 - Acute kidney failure, unspecified Status: Acute Assessment and Plan: Improving. (4) Hypertension: Code(s): I10 - Essential (primary) hypertension Status: Acute Assessment and Plan: Patient was on amlodipine, olmesartan and hydrochlorothiazide as an outpatient. Blood pressure is increasing. Renal function is improving also. Likely time to restart some medications. Start olmesartan 10 mg daily initially and at to this regimen as needed Subjective Date/time seen: 02/28/24 10:08 Interval history: Reason for visit: Cardiac arrest HPI: This is a fortunate 69-year-old lady I am seeing after cardiac arrest with which she was admitted yesterday to the ICU.? She is not from this area and is unknown to physicians in this vicinity.? She and her reside in [place] and were traveling to take a family member to [facility] to be deployed in the [employer].? They [place] [address] in this vicinity and having a normal conversation as his suddenly he lost consciousness and was clearly suffering a cardiac arrest.? The pulled the car over and got her onto the ground and started bystander CPR as well as calling 911.? When EMS arrived she was in ventricular fibrillation and resuscitation efforts were continued.? She was defibrillated into an effective rhythm and was transported to [facility] Emergency Room.? Here she was intubated and while in the emergency room had another arrest that was apparently marked by ventricular tachycardia and was once again cardioverted and resuscitated.? She was admitted to the ICU after this was placed on hypothermia protocol she is receiving Levophed and in this setting is being seen in consultation.? Her electrocardiogram shows sinus rhythm with a wider QRS with sometimes complete sometimes incomplete left bundle branch block conduction but no ST segment deviation consistent with acute myocardial infarction.? Troponin levels have risen slightly after this event which of course is expected.? Her chest x-ray shows enlargement of her cardiac silhouette with some fractured ribs from the CPR.? She is on hypothermia protocol still on the ventilator and is unresponsive.? She was placed on intravenous heparin as well.? The patient's is in the room and indicates that she saw a operating room scheduler for consultation back in 2018.? He can not remember the reason for the consultation but he does remember that a defibrillator implant was recommended.? The patient declined this recommendation and has not been followed by operating room scheduler since then.? She does have hypertension and asthma as her principal health problems as well as morbid obesity. Date of service 02/24: Remains intubated, but awake and following commands. Levophed is now placed on standby. SCr rising. Date of service 02/25: Extubated. Awake and alert. Neurologically intact. SCr improving. Date of service 02/27/2024: Patient is awake alert extubated offers no complaints at this time. She and her are greatly concerned about her anxiety issues and expres
[2024-02-28] MEDS: AMPICILLIN SULB 3 GM/NS 100 ML 3 GM/100 ML VIAL IVPB ×2 (10:32→17:16)
--- NOTE | 2024-02-28 11:15 | PC.NURSE ---
Family conference with Dr. Melvin and RN. MD updated daughters, son and step-daughter on patient condition and plan of care. All questions answered per MD.
[2024-02-28 12:09] LABS: Glucose Point of Care 119 mg/dl (65-105)
--- NOTE | 2024-02-28 12:18 | PCSTNOTE ---
Bedside swallowing evaluation completed. Patient seen bedside in ICU with head of bed elevated to achieve upright positioning. Cursory oral peripheral examination results within functional limits. Patient reportedly had a choking episode this morning on a piece of sausage. Chest xray results from today: Persistent extensive bilateral airspace disease which may represent edema or pneumonia. Patient is not a candidate for a modified barium swallow study due to body size limitations with equipment and also physician is concerned that she might experience a panic reaction to being placed in a small tight space. Patient did not exhibit any signs of aspiration with thin liquids by cup or straw, but did show signs of impulsivity and drinking too fast. Please note that silent aspiration cannot be ruled out of bedside. Based on results of this evaluation these recommendations are made: mildly thickened liquids (level 2), and minced moist diet (level 5). Swallowing precaution recommendations include: position upright when eating or drinking and for 30 minutes afterwards, take small bites and sips and swallow before taking another bite/sip, no straws. Eat slowly. Staff to frequently observe during meals and to cue patient to eat slowly and follow swallowing precaution recommendations. No further speech therapy is recommended for this patient. Thank you for this referral.
--- NOTE | 2024-02-28 13:43 | P.PNNP_ITS ---
Progress Note: A&P Assessment and Plan (1) Acute kidney injury: Code(s): N17.9 - Acute kidney failure, unspecified Status: Acute Assessment and Plan: * improvement noted * baseline creatinine unknown * admission creatinine 1.1mg/dl -- peaked at 2.1mg/dl * suspect ATN from: * cardiac arrest * hypotension/hemodynamic instability/shock * contrast exposure * prerenal factors * ARB + HCTZ + NSAID use prior to admission * evaluation to date noted: * renal u/s with mild left renal cortical atrophy * urine electrolytes are prerenal * urine eosinophil negative * UA with blood and protein * CPK mildly elevated (but no high enough to affect kidney function) * creatinine has been dropping. Now it is down to 1.3. * She being lots of urine yesterday. She received another dose of diuretics today and nursing told me that he drained 2200cc from the Llamas catheter a few minutes ago. * follow repeat labs and UOP (2) Cardiac arrest: Code(s): I46.9 - Cardiac arrest, cause unspecified Status: Acute Assessment and Plan: * noted Vifib/Vtach arrest * unclear if underlying heart disease * reported history of recommendation for AICD/pacemaker several years ago * Cardiology following * s/p TTM protocol * will eventually need ischemic evaluation (3) Acute respiratory failure: Code(s): J96.00 - Acute respiratory failure, unspecified whether with hypoxia or hypercapnia Status: Acute Assessment and Plan: * resolving * secondary to cardiac arrest and pulmonary edema +/- pneumonia * CT of chest results noted * off ventilator support - extubated * IV diuretic PRN for pulmonary edema (4) Shock: Code(s): R57.9 - Shock, unspecified Status: Acute Assessment and Plan: * resolved (5) Anemia: Code(s): D64.9 - Anemia, unspecified Status: Acute Assessment and Plan: * due to ALONDRA along with acute illness * Hemoglobin 11.5 today. (6) Transaminitis: Code(s): R74.01 - Elevation of levels of liver transaminase levels Status: Acute Assessment and Plan: * These are better. Subjective Date/time seen: 02/28/24 13:43 Interval history: Patient feels better. She is up in a chair. Family is in the room Exam Narrative: General: large female in NAD Heart: normal S1 and S2; no rub or gallop Lungs: coarse breath sounds; decreased at bases Abdomen: soft, nontender, nondistended, positive bowel sounds Extremities: no cyanosis or clubbing; trace edema Skin: warm and intact and no rash Objective Data Vital Signs Vital Signs: Vital Signs - 24 hr 02/27/24 14:00 02/27/24 14:00 02/27/24 14:32 Temperature 100.5 F H Pulse Rate 84 84 Respiratory Rate 18 Blood Pressure 126/52 L Pulse Oximetry 97 Pulse Oximetry [At Rest After Therapy Session] 88 L Oxygen Delivery Nasal Cannula Oxygen Flow Rate 4 02/27/24 14:30 02/27/24 14:31 02/27/24 14:32 Temperature Pulse Rate 87 Respiratory Rate Blood Pressure Pulse Oximetry 87 L 87 L 87 L Pulse Oximetry [At Rest After Therapy Session] Oxygen Delivery Room Air Nasal Cannula Nasal Cannula Oxygen Flow Rate 2 3
--- NOTE | 2024-02-28 13:43 | PM.PNNEP ---
Progress Note: A&P Assessment and Plan (1) Acute kidney injury: Code(s): N17.9 - Acute kidney failure, unspecified Status: Acute Assessment and Plan: improvement noted baseline creatinine unknown admission creatinine 1.1mg/dl -- peaked at 2.1mg/dl suspect ATN from: cardiac arrest hypotension/hemodynamic instability/shock contrast exposure prerenal factors ARB + HCTZ + NSAID use prior to admission evaluation to date noted: renal u/s with mild left renal cortical atrophy urine electrolytes are prerenal urine eosinophil negative UA with blood and protein CPK mildly elevated (but no high enough to affect kidney function) creatinine has been dropping. Now it is down to 1.3. She being lots of urine yesterday. She received another dose of diuretics today and nursing told me that he drained 2200cc from the Llamas catheter a few minutes ago. follow repeat labs and UOP (2) Cardiac arrest: Code(s): I46.9 - Cardiac arrest, cause unspecified Status: Acute Assessment and Plan: noted Vifib/Vtach arrest unclear if underlying heart disease reported history of recommendation for AICD/pacemaker several years ago Cardiology following s/p TTM protocol will eventually need ischemic evaluation (3) Acute respiratory failure: Code(s): J96.00 - Acute respiratory failure, unspecified whether with hypoxia or hypercapnia Status: Acute Assessment and Plan: resolving secondary to cardiac arrest and pulmonary edema +/- pneumonia CT of chest results noted off ventilator support - extubated IV diuretic PRN for pulmonary edema (4) Shock: Code(s): R57.9 - Shock, unspecified Status: Acute Assessment and Plan: resolved (5) Anemia: Code(s): D64.9 - Anemia, unspecified Status: Acute Assessment and Plan: due to ALONDRA along with acute illness Hemoglobin 11.5 today. (6) Transaminitis: Code(s): R74.01 - Elevation of levels of liver transaminase levels Status: Acute Assessment and Plan: These are better. Subjective Date/time seen: 02/28/24 13:43 Interval history: Patient feels better. She is up in a chair. Family is in the room Exam Narrative: General: large female in NAD Heart: normal S1 and S2; no rub or gallop Lungs: coarse breath sounds; decreased at bases Abdomen: soft, nontender, nondistended, positive bowel sounds Extremities: no cyanosis or clubbing; trace edema Skin: warm and intact and no rash Objective Data Vital Signs Vital Signs: Vital Signs - 24 hr 02/27/24 14:00 02/27/24 14:00 02/27/24 14:32 Temperature 100.5 F H Pulse Rate 84 84 Respiratory Rate 18 Blood Pressure 126/52 L Pulse Oximetry 97 Pulse Oximetry [At Rest After Therapy Session] 88 L Oxygen Delivery Nasal Cannula Oxygen Flow Rate 4 02/27/24 14:30 02/27/24 14:31 02/27/24 14:32 Temperature Pulse Rate 87 Respiratory Rate Blood Pressure Pulse Oximetry 87 L 87 L 87 L Pulse Oximetry [At Rest After Therapy Session] Oxygen Delivery Room Air Nasal Cannula Nasal Cannula Oxygen Flow Rate 2 3 02/27/24 14:33 02/27/24 14:35 02/27/24 14:36 Temperature Pulse Rate 92 94 Respiratory Rate Blood Pressure Pulse Oximetry 93 86 L 87 L Pulse Oximetry [At Rest After Therapy Session] Oxygen Delivery Nasal Cannula Nasal Cannula Nasal Cannula Oxygen Flow Rate 4 4 5 02/27/24 14:37 02/27/24 14:45 02/27/24 16:00 Temperature Pulse Rate 93 80 72 Respiratory Rate Blood Pressure Pulse Oximetry 90 93 Pulse Oximetry [At Rest After Therapy Session] Oxygen Delivery Nasal Cannula Nasal Cannula Oxygen Flow Rate 6 4 02/27/24 16:00 02/27/24 16:00 02/27/24 18:00 Temperature 99.7 F H Pulse Rate 72 72 88 Respiratory Rate 18 18 Blood Pressure 145/59 H Pulse Oximetry 92 92 Pulse Oximetry [At Rest After Ther
--- NOTE | 2024-02-28 14:11 | PM.IMPN ---
Progress Note: A&P Assessment and Plan (1) Cardiac arrest: Code(s): I46.9 - Cardiac arrest, cause unspecified Status: Acute Assessment and Plan: Patient brought in by EMS for VT/VFib cardiac arrest. She has some underlying cardiac conduction abnormality and AICD placement was recommended in 2017 which she refused at that time. She also may have underlying coronary disease. CTA chest negative for PE but showed left 4th-7th rib fx, small pleural effusions and airspace and GG opacities in the upper lobes CT brain normal. Status post targeted temperature management Cardiology recommended coronary angiogram which family refused she and tentatively planned for Friday Echo: EF 60-65% no significant valvular dysfunction. (2) Acute respiratory failure: Code(s): J96.00 - Acute respiratory failure, unspecified whether with hypoxia or hypercapnia Status: Acute Assessment and Plan: Acute Respiratory failure secondary to cardiac arrest and pulmonary edema Extubated 02/25/2024 Oxygen supplementation via nasal cannula BiPAP p.r.n. Bronchodilators and incentive spirometry Diuresis for pulmonary edema ICU, cardiology rounding (3) Shock: Code(s): R57.9 - Shock, unspecified Status: Acute Assessment and Plan: BP 67/51 documented in the ED. Central line placed and started on Levophed She is off vasopressor now Pancultured on admission Blood culture remained negative to date urine culture negative Off antibiotics (4) Acute kidney injury: Code(s): N17.9 - Acute kidney failure, unspecified Status: Acute Assessment and Plan: Baseline creatinine unknown. Creatinine 1.1 on admission CK marginally elevated but not likely to cause renal issues Likely prerenal versus renal versus chronic Renal ultrasound with mild left renal cortical atrophy. Echogenic liver most commonly due to steatosis Nephrology was consulted Creatinine trending down now (5) Acute hyperglycemia: Code(s): R73.9 - Hyperglycemia, unspecified Status: Acute Assessment and Plan: A1c 5.4. The patient's blood glucose was reviewed on 02/23 sugars are 122 (6) Transaminitis: Code(s): R74.01 - Elevation of levels of liver transaminase levels Status: Acute Assessment and Plan: Normal bilirubin and alkaline phosphatase but elevated AST and ALT likely secondary to shock liver Not on statin therapy prior to admission Renal US showing echogenic liver levels trending down Monitor (7) Elevated troponin: Code(s): R79.89 - Other specified abnormal findings of blood chemistry Status: Acute Assessment and Plan: Troponin elevated likely secondary to CPR and cardiac arrest Patient may have underlying coronary disease but no ST segment elevation DC cardiology on board Patient on aspirin Treated with IV heparin initially Hold statin due to elevated LFTs Not on beta-kareem due to shock (8) Acidosis: Code(s): E87.20 - Acidosis, unspecified Status: Acute Assessment and Plan: Related to cardiac arrest and anoxia. resolved now (9) Anoxic brain injury: Code(s): G93.1 - Anoxic brain damage, not elsewhere classified Status: Acute Assessment and Plan: Patient now having purposeful movement after resuscitation and coling protocol. Head CT negative pt is alert and talkative much improved Plan DVT prophylaxis Lovenox Code status full code Subjective Date/time seen: 02/28/24 14:11 Interval history: Intermittent mild fever persist. Discussed with intensive this. Remains on 5-6 L oxygen. Breathing is better she states. Minimal cough Review of Systems Review of Systems: All systems reviewed & are unremarkable except as noted in HPI and below Exam Narrative: General: Patient is awake, alert, in no acute distress HEENT: Pupils are equal and reactive, scler
[2024-02-28 16:23] LABS: Glucose Point of Care 110 mg/dl (65-105)
[2024-02-28 21:40] LABS: Glucose Point of Care 126 mg/dl (65-105)
[2024-02-29] VITALS (28 sets, daily range): BP systolic 107–152; BP diastolic 51–106; PULSE 58–87; RESP 14–26; TEMP 36.8–37.6; O2SAT 93–100
[2024-02-29] MEDS: AMPICILLIN SULB 3 GM/NS 100 ML 3 GM/100 ML VIAL IVPB ×5 (00:33→23:46)
[2024-02-29] MEDS: IPRATROPIUM 0.5 MG/ALBUTEROL SULFATE 2.5 MG AMPUL.NEB 3 ML INHALATION ×4 (02:42→20:24)
[2024-02-29 04:23] LABS: Basophils Absolute Auto 0.1 K/mm3 (0.0-0.1); Basophils Percent Auto 0.9 % (0.2-1.2); Eosinophils Absolute Auto 0.3 K/mm3 (0-0.3); Eosinophils Percent Auto 5.2 % (0-4.4); Hematocrit 35.5 % (37.0-47.0); Hemoglobin 11.3 g/dL (12.0-15.0); Immature Granulocyte Absolute 0.12 K/mm3 (0.00-0.031); Immature Granulocyte Percent A 2.2 % (0-0.5); Lymphocytes Absolute Auto 1.39 K/mm3 (0.9-3.2); Lymphocytes Percent Auto 25.1 % (18.3-44.2); Mean Corpuscular HGB Conc 31.8 g/dl (32-36); Mean Corpuscular Hemoglobin 31.3 pg (26-34); Mean Corpuscular Volume 98.3 fl (80-100); Mean Platelet Volume 10.2 fl (7.4-10.4); Monocytes Absolute Auto 0.7 K/mm3 (0.1-0.6); Monocytes Percent Auto 12.8 % (2.6-8.5); Neutrophils Percent Auto 53.8 % (45.5-73.1); Platelet Count Result 153 k/mm3 (150-375); Red Blood Count 3.61 M/mm3 (4.2-5.4); Red Cell Distribution Width 13.8 % (11.5-14.5); White Blood Count 5.5 K/mm3 (4.5-10.0)
[2024-02-29 04:46] LABS: Alanine Aminotransferase 53 U/L (6-35); Albumin Level 3.6 g/dL (3.5-5.1); Alkaline Phosphatase 48 U/L (38-126); Anion Gap 4 mmol/L (4-12); Aspartate Amino Transferase 43 U/L (14-36); Bilirubin,Total 0.9 mg/dL (0.2-1.3); Blood Urea Nitrogen 21 mg/dL (7-17); Calcium 9.3 mg/dL (8.4-10.2); Carbon Dioxide 31 mmol/L (22-30); Chloride 104 mmol/L (98-107); Creatine Kinase 131 U/L (30-135); Estimated CRCL calculation 60 ml/min; Estimated Glomerular Filt Rate 49; Glucose 119 mg/dL (65-110); Magnesium 2.4 mg/dL (1.6-2.3); Potassium 3.4 mmol/L (3.4-5.0); Sodium 139 mmol/L (137-145)
[2024-02-29 04:59] LABS: Base Excess ABG 3.8 mEq/l (+/-2.0); Carboxyhemoglobin 0.3 % THb (0-2.0); Fractional Inspired Oxygen 40 %; HCO3 ABG 29.4 mEq/l (22.0-26.0); Methemoglobin ABG 0.3 %THb (0-1.5); Oxygen Content ABG 16.8 %vol (16.0-22.0); Oxygen Saturation ABG 97.6 % (95.0-100.0); Oxyhemoglobin 96.5 % THb (90.0-100.0); PCO2 ABG 48.5 mmHg (35.0-45.0); PO2 ABG 101.4 mmHg (80.0-100.0); PO2 FiO2 Ratio Arterial Blood 2.54 %; Reduced Hemoglobin 2.9 %THb (0-5.0); Total Hemoglobin 12.3 g/dL (12.0-18.0)
[2024-02-29 05:00] LABS: Device BIPAP; Modified Allen's Test Pass; Site Drawn RIGHT RADIAL
[2024-02-29 05:01] LABS: Expiratory Pressure 5 cmH2O; Inspiratory Pressure 10 cmH2O
[2024-02-29 05:10] LABS: CRP 12.9 mg/dL (<1.0)
[2024-02-29] MEDS: ALPRAZolam (*CRX) 0.5 MG TABLET 1 MG PO ×3 (06:02→21:30)
[2024-02-29] MEDS: CENTRAL LINE FLUSH 10 ML IV PUSH ×3 (06:39→21:30)
[2024-02-29] MEDS: BUDESONIDE RESPULE NEB 0.5 MG/2 ML AMP INHALATION ×2 (08:11→20:24)
--- NOTE | 2024-02-29 08:25 | P.PNINT_ITS ---
Progress Note: A&P Assessment and Plan (1) Cardiac arrest: Code(s): I46.9 - Cardiac arrest, cause unspecified Status: Acute Assessment and Plan: VT VFib arrest in a patient with some underlying heart disease details of which are unknown. As above mentioned patient was recommended pacemaker AICD placement in 2016 which she refused at that time. She also may have underlying coronary disease. Will try to obtain records -CTA chest negative for PE -Continue aspirin -Hypokalemia: Will replete potassium -02/24: Discontinued Zosyn (started on 02/21) -status post target temperature management -cardiology following the patient, recommended coronary angiography, patient unable to lay flat in bed, procedure was postponed until 03/01 if she can lay flat -patient is being diuresed well, pulmonary edema has been improving chest x-ray 02/23/2024: Echocardiogram ?1. Technically difficult exam, definity contrast utilized to improve visualization. ? 2. Normal left ventricular size and systolic contractility. EF 60-65% ? 3. No significant valvular dysfunction. ? 4. Enlarged left atrium. ? 5. ECG rhythm strip during echo appears to show long QT interval. 6. RVSP 29 mmHg (2) Acute kidney injury: Code(s): N17.9 - Acute kidney failure, unspecified Status: Acute Assessment and Plan: Baseline creatinine unknown. Creatinine elevated 1.6 CK marginally elevated Likely prerenal versus renal -status post IV fluids -02/22: renal ultrasound -Mild left renal cortical atrophy. Echogenic liver, most commonly due to steatosis but also can be seen with hepatitis and fibrosis. -urine lytes did not show a prerenal picture, urine eosinophils were negative -CK levels were elevated, patient was given L of IV fluids on 02/24 -02/24: creatinine increased to 2.10 (1.30 on 02/23) -appreciate Nephrology evaluation recommendation -acute kidney injury could be likely related to prerenal, cardiac arrest/hypotension, shock, contrast for CTA -Monitor urine output electrolytes and creatinine -patient with very good urine output in response to diuresis, creatinine has normalized, chest x-ray much improved -continue diuresis (3) Acute hyperglycemia: Code(s): R73.9 - Hyperglycemia, unspecified Status: Acute Assessment and Plan: No known history of diabetes. Blood sugar elevated could be secondary to stress Continue Accu-Cheks and sliding scale insulin. Status post Lantus -blood sugars much improved -continue to monitor (4) Transaminitis: Code(s): R74.01 - Elevation of levels of liver transaminase levels Status: Acute Assessment and Plan: Normal bilirubin and alkaline phosphatase but elevated AST and ALT likely secondary to shock liver or rhabdo Monitor levels at this time. Hold statin -LFTs trending down, continue to monitor (5) Acute respiratory failure: Code(s): J96.00 - Acute respiratory failure, unspecified whether with hypoxia or hypercapnia Status: Acute Assessment and Plan: Acute Respiratory failure secondary to cardiac arrest, pulmonary edema -02/21: intubated -02/24: Extubated -BiPAP p.r.n. -encourage incentive spirometry -continue Bronchodilators -PT/OT to follow patient, up in chair -patient did pass her bedside swallow evaluation by speech therapy, currently on heart healthy diet -chest x-ray shows improvement in pulmonary edema, will continue diuresis -02/27: Speech evaluate the patient again for swallow test, recommended minced and moist and thickened liquids (6) Shock: Code(s): R5
[2024-02-29 08:56] LABS: Glucose Point of Care 108 mg/dl (65-105)
[2024-02-29] MEDS: ESCITALOPRAM OXALATE 10 MG TABLET 20 MG PO (09:05)
[2024-02-29] MEDS: PANTOPRAZOLE SODIUM IV 40 MG VIAL IV PUSH (09:06)
[2024-02-29] MEDS: ENOXAPARIN 40 MG/0.4 ML SYRINGE SUB-Q (09:07)
[2024-02-29] MEDS: POTASSIUM CHLORIDE 20 MEQ PACKET (FOR LIQUID) 40 MEQ PO ×2 (09:08→17:33)
[2024-02-29] MEDS: ASPIRIN 81 MG CHEWABLE TABLET PO (09:08)
[2024-02-29] MEDS: FUROSEMIDE INJ 40 MG/4 ML VIAL IV PUSH (09:08)
[2024-02-29] MEDS: allopurinoL 300 MG TABLET PO (09:09)
[2024-02-29] MEDS: OLMESARTAN MEDOXOMIL 10 MG TABLET PO (09:09)
[2024-02-29] MEDS: POTASSIUM CHLORIDE 20 MEQ PACKET (FOR LIQUID) PO (09:09)
--- NOTE | 2024-02-29 09:14 | PM.PNCARD ---
Progress Note: A&P Assessment and Plan (1) Cardiac arrest: Code(s): I46.9 - Cardiac arrest, cause unspecified Status: Acute Assessment and Plan: Possibly related to long QT syndrome. NPO after midnight for coronary angiogram tomorrow. She and her are present yesterday for discussion and are both agreeable. Plan will be to undergo angiogram on Friday. She is able lay flat. After that, she then should have ICD placed which will require transfer. (2) Anoxic brain injury: Code(s): G93.1 - Anoxic brain damage, not elsewhere classified Status: Acute Assessment and Plan: Improving (3) Acute kidney injury: Code(s): N17.9 - Acute kidney failure, unspecified Status: Acute Assessment and Plan: Improving. (4) Hypertension: Code(s): I10 - Essential (primary) hypertension Status: Acute Assessment and Plan: Patient was on amlodipine, olmesartan and hydrochlorothiazide as an outpatient. Tolerating olmesartan Subjective Date/time seen: 02/29/24 09:14 Interval history: Reason for visit: Cardiac arrest HPI: This is a fortunate 69-year-old lady I am seeing after cardiac arrest with which she was admitted yesterday to the ICU.? She is not from this area and is unknown to physicians in this vicinity.? She and her reside in [place] and were traveling to take a family member to [facility] to be deployed in the [employer].? [place] [address] in this vicinity and having a normal conversation as his suddenly he lost consciousness and was clearly suffering a cardiac arrest.? The pulled the car over and got her onto the ground and started bystander CPR as well as calling 911.? When EMS arrived she was in ventricular fibrillation and resuscitation efforts were continued.? She was defibrillated into an effective rhythm and was transported to [facility].? Here she was intubated and while in the emergency room had another arrest that was apparently marked by ventricular tachycardia and was once again cardioverted and resuscitated.? She was admitted to the ICU after this was placed on hypothermia protocol she is receiving Levophed and in this setting is being seen in consultation.? Her electrocardiogram shows sinus rhythm with a wider QRS with sometimes complete sometimes incomplete left bundle branch block conduction but no ST segment deviation consistent with acute myocardial infarction.? Troponin levels have risen slightly after this event which of course is expected.? Her chest x-ray shows enlargement of her cardiac silhouette with some fractured ribs from the CPR.? She is on hypothermia protocol still on the ventilator and is unresponsive.? She was placed on intravenous heparin as well.? The patient's is in the room and indicates that she saw a automotive designer for consultation back in 2018.? He can not remember the reason for the consultation but he does remember that a defibrillator implant was recommended.? The patient declined this recommendation and has not been followed by automotive designer since then.? She does have hypertension and asthma as her principal health problems as well as morbid obesity. Date of service 02/24: Remains intubated, but awake and following commands. Levophed is now placed on standby. SCr rising. Date of service 02/25: Extubated. Awake and alert. Neurologically intact. SCr improving. Date of service 02/27/2024: Patient is awake alert extubated offers no complaints at this time. She and her are greatly concerned about her anxiety issues and expressing desire to have no procedures done at this hospital or here in the [facility] they wish to travel back to their home area in [place] and seek cardiovascular evaluation in their hometown area Date of service 02/28/2024: She feels okay although still a little foggy post cardiac arrest. No chest pain except for from CPR. Choked on some
--- NOTE | 2024-02-29 11:36 | PC.NURSE ---
Patient asleep. Patient updated on trial for Angiogram tomorrow, HOB placed flat. Patient returned to sleep. No sign or symptom of distress.
--- NOTE | 2024-02-29 12:45 | PC.NURSE ---
Patient HOB to 30 degrees, patient still asleep. No s/s of distress while laying flat.
[2024-02-29 12:49] LABS: Glucose Point of Care 133 mg/dl (65-105)
--- NOTE | 2024-02-29 12:58 | PM.IMPN ---
Progress Note: A&P Assessment and Plan (1) Cardiac arrest: Code(s): I46.9 - Cardiac arrest, cause unspecified Status: Acute Assessment and Plan: Patient brought in by EMS for VT/VFib cardiac arrest. She has some underlying cardiac conduction abnormality and AICD placement was recommended in 2017 which she refused at that time. She also may have underlying coronary disease. CTA chest negative for PE but showed left 4th-7th rib fx, small pleural effusions and airspace and GG opacities in the upper lobes CT brain normal. Status post targeted temperature management Cardiology recommended coronary angiogram which family refused she and tentatively planned for Friday Echo: EF 60-65% no significant valvular dysfunction. (2) Acute respiratory failure: Code(s): J96.00 - Acute respiratory failure, unspecified whether with hypoxia or hypercapnia Status: Acute Assessment and Plan: Acute Respiratory failure secondary to cardiac arrest and pulmonary edema Extubated 02/25/2024 Oxygen supplementation via nasal cannula BiPAP p.r.n. Bronchodilators and incentive spirometry Diuresis for pulmonary edema ICU, cardiology rounding Chest x-ray improving (3) Shock: Code(s): R57.9 - Shock, unspecified Status: Acute Assessment and Plan: BP 67/51 documented in the ED. Central line placed and started on Levophed She is off vasopressor now Pancultured on admission Blood culture remained negative to date urine culture negative Off antibiotics (4) Acute kidney injury: Code(s): N17.9 - Acute kidney failure, unspecified Status: Acute Assessment and Plan: Baseline creatinine unknown. Creatinine 1.1 on admission CK marginally elevated but not likely to cause renal issues Likely prerenal versus renal versus chronic Renal ultrasound with mild left renal cortical atrophy. Echogenic liver most commonly due to steatosis Nephrology was consulted Creatinine trending down now and normalized today (5) Acute hyperglycemia: Code(s): R73.9 - Hyperglycemia, unspecified Status: Acute Assessment and Plan: A1c 5.4. The patient's blood glucose was reviewed on 02/23 sugars are 122 (6) Transaminitis: Code(s): R74.01 - Elevation of levels of liver transaminase levels Status: Acute Assessment and Plan: Normal bilirubin and alkaline phosphatase but elevated AST and ALT likely secondary to shock liver Not on statin therapy prior to admission Renal US showing echogenic liver levels trending down Monitor (7) Elevated troponin: Code(s): R79.89 - Other specified abnormal findings of blood chemistry Status: Acute Assessment and Plan: Troponin elevated likely secondary to CPR and cardiac arrest Patient may have underlying coronary disease but no ST segment elevation ND cardiology on board Patient on aspirin Treated with IV heparin initially Hold statin due to elevated LFTs Not on beta-kareem due to shock (8) Acidosis: Code(s): E87.20 - Acidosis, unspecified Status: Acute Assessment and Plan: Related to cardiac arrest and anoxia. resolved now (9) Anoxic brain injury: Code(s): G93.1 - Anoxic brain damage, not elsewhere classified Status: Acute Assessment and Plan: Patient now having purposeful movement after resuscitation and coling protocol. Head CT negative pt is alert and talkative much improved Plan DVT prophylaxis Lovenox Code status full code Subjective Date/time seen: 02/29/24 12:58 Interval history: Feeling much better. Oxygen requirement has lowered down to 2 L. Afebrile since last evening at bedside. Able to lay flat Review of Systems Review of Systems: All systems reviewed & are unremarkable except as noted in HPI and below Exam Narrative: General: Patient is awake, alert, in no acute distress HEENT:
--- NOTE | 2024-02-29 14:19 | P.PNNP_ITS ---
Progress Note: A&P Assessment and Plan (1) Acute kidney injury: Code(s): N17.9 - Acute kidney failure, unspecified Status: Acute Assessment and Plan: * improvement noted * baseline creatinine unknown * admission creatinine 1.1mg/dl -- peaked at 2.1mg/dl * suspect ATN from: * cardiac arrest * hypotension/hemodynamic instability/shock * contrast exposure * prerenal factors * ARB + HCTZ + NSAID use prior to admission * evaluation to date noted: * renal u/s with mild left renal cortical atrophy * urine electrolytes are prerenal * urine eosinophil negative * UA with blood and protein * CPK mildly elevated (but no high enough to affect kidney function) * creatinine has been dropping. Now it is down to 1.12. * Urine output 2700 yesterday. * She looks comfortable right now. She did get a dose of Lasix this morning. Will hold off on further diuretics today and reassess tomorrow. (2) Cardiac arrest: Code(s): I46.9 - Cardiac arrest, cause unspecified Status: Acute Assessment and Plan: * noted Vifib/Vtach arrest * unclear if underlying heart disease * reported history of recommendation for AICD/pacemaker several years ago * Cardiology following * s/p TTM protocol * will eventually need ischemic evaluation (3) Acute respiratory failure: Code(s): J96.00 - Acute respiratory failure, unspecified whether with hypoxia or hypercapnia Status: Acute Assessment and Plan: * resolving * Off the ventilator and breathing comfortably. (4) Shock: Code(s): R57.9 - Shock, unspecified Status: Acute Assessment and Plan: * resolved (5) Anemia: Code(s): D64.9 - Anemia, unspecified Status: Acute Assessment and Plan: * due to ALONDRA along with acute illness * Hemoglobin 11.3 today. (6) Transaminitis: Code(s): R74.01 - Elevation of levels of liver transaminase levels Status: Acute Assessment and Plan: * These are better. Subjective Date/time seen: 02/29/24 14:19 Interval history: Patrizia is sitting up in a chair getting physical and occupational therapy. She is comfortable right now. She denies any shortness of breath or chest pain Exam Narrative: General: large female in NAD Heart: normal S1 and S2; no rub or gallop Lungs: Fairly clear lungs now. Abdomen: soft, nontender, nondistended, positive bowel sounds Extremities: no cyanosis or clubbing; trace edema Skin: no rash Objective Data Vital Signs Vital Signs: Vital Signs - 24 hr 02/28/24 14:26 02/28/24 16:00 02/28/24 16:00 Temperature 99.7 F H Pulse Rate 89 80 Respiratory Rate 20 21 H Blood Pressure 157/64 H Pulse Oximetry 100 97 Oxygen Delivery Nasal Cannula Oxygen Flow Rate 6 Fraction of Inspired Oxygen 02/28/24 16:00 02/28/24 18:00 02/28/24 18:00 Temperature 99.6 F Pulse Rate 91 83 83 Respiratory Rate 15 Blood Pressure 137/73 Pulse Oximetry 100 Oxygen Delivery Oxygen Flow Rate Fraction of Inspired Oxygen 02/28/24 20:48 02/28/24 20:48 02/28/24 20:57 Temperature Pulse Rate 72 76 Respiratory Rate 19 20 Blood Pr
--- NOTE | 2024-02-29 14:19 | PM.PNNEP ---
Progress Note: A&P Assessment and Plan (1) Acute kidney injury: Code(s): N17.9 - Acute kidney failure, unspecified Status: Acute Assessment and Plan: improvement noted baseline creatinine unknown admission creatinine 1.1mg/dl -- peaked at 2.1mg/dl suspect ATN from: cardiac arrest hypotension/hemodynamic instability/shock contrast exposure prerenal factors ARB + HCTZ + NSAID use prior to admission evaluation to date noted: renal u/s with mild left renal cortical atrophy urine electrolytes are prerenal urine eosinophil negative UA with blood and protein CPK mildly elevated (but no high enough to affect kidney function) creatinine has been dropping. Now it is down to 1.12. Urine output 2700 yesterday. She looks comfortable right now. She did get a dose of Lasix this morning. Will hold off on further diuretics today and reassess tomorrow. (2) Cardiac arrest: Code(s): I46.9 - Cardiac arrest, cause unspecified Status: Acute Assessment and Plan: noted Vifib/Vtach arrest unclear if underlying heart disease reported history of recommendation for AICD/pacemaker several years ago Cardiology following s/p TTM protocol will eventually need ischemic evaluation (3) Acute respiratory failure: Code(s): J96.00 - Acute respiratory failure, unspecified whether with hypoxia or hypercapnia Status: Acute Assessment and Plan: resolving Off the ventilator and breathing comfortably. (4) Shock: Code(s): R57.9 - Shock, unspecified Status: Acute Assessment and Plan: resolved (5) Anemia: Code(s): D64.9 - Anemia, unspecified Status: Acute Assessment and Plan: due to ALONDRA along with acute illness Hemoglobin 11.3 today. (6) Transaminitis: Code(s): R74.01 - Elevation of levels of liver transaminase levels Status: Acute Assessment and Plan: These are better. Subjective Date/time seen: 02/29/24 14:19 Interval history: Patrizia is sitting up in a chair getting physical and occupational therapy. She is comfortable right now. She denies any shortness of breath or chest pain Exam Narrative: General: large female in NAD Heart: normal S1 and S2; no rub or gallop Lungs: Fairly clear lungs now. Abdomen: soft, nontender, nondistended, positive bowel sounds Extremities: no cyanosis or clubbing; trace edema Skin: no rash Objective Data Vital Signs Vital Signs: Vital Signs - 24 hr 02/28/24 14:26 02/28/24 16:00 02/28/24 16:00 Temperature 99.7 F H Pulse Rate 89 80 Respiratory Rate 20 21 H Blood Pressure 157/64 H Pulse Oximetry 100 97 Oxygen Delivery Nasal Cannula Oxygen Flow Rate 6 Fraction of Inspired Oxygen 02/28/24 16:00 02/28/24 18:00 02/28/24 18:00 Temperature 99.6 F Pulse Rate 91 83 83 Respiratory Rate 15 Blood Pressure 137/73 Pulse Oximetry 100 Oxygen Delivery Oxygen Flow Rate Fraction of Inspired Oxygen 02/28/24 20:48 02/28/24 20:48 02/28/24 20:57 Temperature Pulse Rate 72 76 Respiratory Rate 19 20 Blood Pressure Pulse Oximetry 100 Oxygen Delivery Nasal Cannula Oxygen Flow Rate 6 Fraction of Inspired Oxygen 02/28/24 20:00 02/28/24 20:00 02/28/24 20:00 Temperature 100 F H Pulse Rate 80 80 Respiratory Rate 29 H Blood Pressure 167/125 H Pulse Oximetry 99 99 Oxygen Delivery Nasal Cannula Oxygen Flow Rate 6 Fraction of Inspired Oxygen 02/28/24 22:00 02/28/24 22:00 02/28/24 21:00 Temperature 98.8 F 99 F Pulse Rate 76 76 77 Respiratory Rate 17 21 H Blood Pressure 133/69 134/70 Pulse Oximetry 100 100 Oxygen Delivery Oxygen Flow Rate Fraction of Inspired Oxygen 02/28/24 23:19 02/29/24 00:00 02/29/24 00:00 Temperature Pulse Rate 77 76 77 Respiratory Rate 21 H 15 Blood Pressure Pulse Oximetry 99 99 Oxygen Delivery BiPAP
[2024-02-29 16:58] LABS: Glucose Point of Care 118 mg/dl (65-105)
[2024-02-29 20:53] LABS: Glucose Point of Care 101 mg/dl (65-105)
[2024-03-01] VITALS (38 sets, daily range): BP systolic 91–167; BP diastolic 54–115; PULSE 53–81; RESP 14–20; TEMP 36.5–37.2; O2SAT 10–100
[2024-03-01] MEDS: IPRATROPIUM 0.5 MG/ALBUTEROL SULFATE 2.5 MG AMPUL.NEB 3 ML INHALATION ×4 (01:32→21:06)
[2024-03-01] MEDS: CENTRAL LINE FLUSH 10 ML IV PUSH ×3 (05:22→23:04)
[2024-03-01] MEDS: AMPICILLIN SULB 3 GM/NS 100 ML 3 GM/100 ML VIAL IVPB ×3 (05:22→17:55)
[2024-03-01 05:34] LABS: Basophils Absolute Auto 0.1 K/mm3 (0.0-0.1); Basophils Percent Auto 0.9 % (0.2-1.2); Eosinophils Absolute Auto 0.4 K/mm3 (0-0.3); Eosinophils Percent Auto 6.8 % (0-4.4); Hematocrit 36.1 % (37.0-47.0); Hemoglobin 11.2 g/dL (12.0-15.0); Immature Granulocyte Absolute 0.12 K/mm3 (0.00-0.031); Immature Granulocyte Percent A 1.9 % (0-0.5); Lymphocytes Percent Auto 28.3 % (18.3-44.2); Mean Corpuscular Hemoglobin 31.1 pg (26-34); Mean Corpuscular Volume 100.3 fl (80-100); Mean Platelet Volume 10.4 fl (7.4-10.4); Monocytes Absolute Auto 0.6 K/mm3 (0.1-0.6); Neutrophils Absolute Auto 3.3 K/mm3 (1.3-6.7); Neutrophils Percent Auto 52.1 % (45.5-73.1); Platelet Count Result 179 k/mm3 (150-375); Red Cell Distribution Width 13.8 % (11.5-14.5); White Blood Count 6.4 K/mm3 (4.5-10.0)
[2024-03-01] MEDS: ALPRAZolam (*CRX) 0.5 MG TABLET 1 MG PO ×2 (05:44→22:47)
[2024-03-01 05:45] LABS: Alanine Aminotransferase 58 U/L (6-35); Albumin Level 3.6 g/dL (3.5-5.1); Alkaline Phosphatase 45 U/L (38-126); Anion Gap 2 mmol/L (4-12); Aspartate Amino Transferase 51 U/L (14-36); Bilirubin,Total 0.7 mg/dL (0.2-1.3); Blood Urea Nitrogen 19 mg/dL (7-17); Calcium 9.2 mg/dL (8.4-10.2); Carbon Dioxide 33 mmol/L (22-30); Chloride 105 mmol/L (98-107); Estimated CRCL calculation 60 ml/min; Estimated Glomerular Filt Rate 49; Glucose 101 mg/dL (65-110); Magnesium 2.4 mg/dL (1.6-2.3); Potassium 3.9 mmol/L (3.4-5.0); Sodium 140 mmol/L (137-145)
[2024-03-01] MEDS: BUDESONIDE RESPULE NEB 0.5 MG/2 ML AMP INHALATION ×2 (07:40→21:06)
[2024-03-01 08:23] LABS: Glucose Point of Care 97 mg/dl (65-105)
[2024-03-01] MEDS: PANTOPRAZOLE SODIUM IV 40 MG VIAL IV PUSH (08:45)
[2024-03-01] MEDS: allopurinoL 300 MG TABLET PO (08:46)
[2024-03-01] MEDS: ESCITALOPRAM OXALATE 10 MG TABLET 20 MG PO (08:46)
[2024-03-01] MEDS: OLMESARTAN MEDOXOMIL 10 MG TABLET PO (08:46)
[2024-03-01] MEDS: ASPIRIN 81 MG CHEWABLE TABLET PO (08:46)
[2024-03-01] MEDS: KCL 40 MEQ/WATER 100 ML 100 ML 25 ML IVPB (08:46)
[2024-03-01] MEDS: FUROSEMIDE INJ 40 MG/4 ML VIAL IV PUSH (08:51)
--- NOTE | 2024-03-01 09:12 | P.PNNP_ITS ---
Progress Note: A&P Assessment and Plan (1) Acute kidney injury: Code(s): N17.9 - Acute kidney failure, unspecified Status: Acute Assessment and Plan: * improvement noted * baseline creatinine unknown * admission creatinine 1.1mg/dl -- peaked at 2.1mg/dl * suspect ATN from: * cardiac arrest * hypotension/hemodynamic instability/shock * contrast exposure * prerenal factors * ARB + HCTZ + NSAID use prior to admission * evaluation to date noted: * renal u/s with mild left renal cortical atrophy * urine electrolytes are prerenal * urine eosinophil negative * UA with blood and protein * CPK mildly elevated (but no high enough to affect kidney function) * contine to follow repeat labs and UOP (2) Cardiac arrest: Code(s): I46.9 - Cardiac arrest, cause unspecified Status: Acute Assessment and Plan: * noted Vifib/Vtach arrest * unclear if underlying heart disease * reported history of recommendation for AICD/pacemaker several years ago * Cardiology following * s/p TTM protocol * will eventually need ischemic evaluation (3) Acute respiratory failure: Code(s): J96.00 - Acute respiratory failure, unspecified whether with hypoxia or hypercapnia Status: Acute Assessment and Plan: * resolving * respiratory status improving (4) Shock: Code(s): R57.9 - Shock, unspecified Status: Acute Assessment and Plan: * resolved (5) Anemia: Code(s): D64.9 - Anemia, unspecified Status: Acute Assessment and Plan: * due to ALONDRA along with acute illness * follow trend of H/H (6) Transaminitis: Code(s): R74.01 - Elevation of levels of liver transaminase levels Status: Acute Assessment and Plan: * improvement note Not much else to add -- will continue to follow from a distance. Subjective Date/time seen: 03/01/24 09:12 Interval history: Follow-up for acute kidney injury/acute renal failure. Chart reviewed since last seen -- creatinine has normalized in spite of diuretic therapy; breathing/respiratory status has significantly improve as well and is currently on room air; no other acute issues/events overnight or earlier this morning. Exam Narrative: General: large female in NAD Heart: normal S1 and S2; no rub Lungs: lungs clear Abdomen: soft, nontender, nondistended, positive bowel sounds Extremities: no cyanosis or clubbing; trace edema Skin: no nodules Objective Data Vital Signs Vital Signs: Vital Signs Temp Pulse Resp BP Pulse Ox O2 Del Method O2 Flow Rate 03/01/24 09:00 97.7 F 73 15 132/75 100 03/01/24 08:00 100 BiPAP 03/01/24 08:00 71 03/01/24 08:00 98.5 F 73 15 136/60 100 03/01/24 07:58 71 15 03/01/24 07:46 69 15 100 BiPAP 03/01/24 07:40 69 15 100 BiPAP 03/01/24 07:40 69 15 03/01/24 06:18 98.1 F 72 16 136/65 95 03/01/24 04:01 98.0 F 74 15 131/62 100 03/01/24 06:00 67 03/01/24 04:00 94 BiPAP 03/01/24 04:00 71 03/01/24 02:01 98.3 F 75 15 123/60 100 03/01/24 02:00 76 03/01/24 01:36 17 BiPAP 03/01/24 01:33 76 15 02/29/24 21:30 15 BiPAP
--- NOTE | 2024-03-01 09:12 | PM.PNNEP ---
Progress Note: A&P Assessment and Plan (1) Acute kidney injury: Code(s): N17.9 - Acute kidney failure, unspecified Status: Acute Assessment and Plan: improvement noted baseline creatinine unknown admission creatinine 1.1mg/dl -- peaked at 2.1mg/dl suspect ATN from: cardiac arrest hypotension/hemodynamic instability/shock contrast exposure prerenal factors ARB + HCTZ + NSAID use prior to admission evaluation to date noted: renal u/s with mild left renal cortical atrophy urine electrolytes are prerenal urine eosinophil negative UA with blood and protein CPK mildly elevated (but no high enough to affect kidney function) contine to follow repeat labs and UOP (2) Cardiac arrest: Code(s): I46.9 - Cardiac arrest, cause unspecified Status: Acute Assessment and Plan: noted Vifib/Vtach arrest unclear if underlying heart disease reported history of recommendation for AICD/pacemaker several years ago Cardiology following s/p TTM protocol will eventually need ischemic evaluation (3) Acute respiratory failure: Code(s): J96.00 - Acute respiratory failure, unspecified whether with hypoxia or hypercapnia Status: Acute Assessment and Plan: resolving respiratory status improving (4) Shock: Code(s): R57.9 - Shock, unspecified Status: Acute Assessment and Plan: resolved (5) Anemia: Code(s): D64.9 - Anemia, unspecified Status: Acute Assessment and Plan: due to ALONDRA along with acute illness follow trend of H/H (6) Transaminitis: Code(s): R74.01 - Elevation of levels of liver transaminase levels Status: Acute Assessment and Plan: improvement note Not much else to add -- will continue to follow from a distance. Subjective Date/time seen: 03/01/24 09:12 Interval history: Follow-up for acute kidney injury/acute renal failure. Chart reviewed since last seen -- creatinine has normalized in spite of diuretic therapy; breathing/respiratory status has significantly improve as well and is currently on room air; no other acute issues/events overnight or earlier this morning. Exam Narrative: General: large female in NAD Heart: normal S1 and S2; no rub Lungs: lungs clear Abdomen: soft, nontender, nondistended, positive bowel sounds Extremities: no cyanosis or clubbing; trace edema Skin: no nodules Objective Data Vital Signs Vital Signs: Vital Signs Temp Pulse Resp BP Pulse Ox O2 Del Method O2 Flow Rate 03/01/24 09:00 97.7 F 73 15 132/75 100 03/01/24 08:00 100 BiPAP 03/01/24 08:00 71 03/01/24 08:00 98.5 F 73 15 136/60 100 03/01/24 07:58 71 15 03/01/24 07:46 69 15 100 BiPAP 03/01/24 07:40 69 15 100 BiPAP 03/01/24 07:40 69 15 03/01/24 06:18 98.1 F 72 16 136/65 95 03/01/24 04:01 98.0 F 74 15 131/62 100 03/01/24 06:00 67 03/01/24 04:00 94 BiPAP 03/01/24 04:00 71 03/01/24 02:01 98.3 F 75 15 123/60 100 03/01/24 02:00 76 03/01/24 01:36 17 BiPAP 03/01/24 01:33 76 15 02/29/24 21:30 15 BiPAP 03/01/24 01:10 77 15 03/01/24 00:01 98.3 F 76 16 126/61 100 03/01/24 00:00 53 L 03/01/24 00:00 100 BiPAP 02/29/24 22:01 98.4 F 76 15 152/71 H 100 02/29/24 22:00 79 02/29/24 20:00 72 02/29/24 20:00 98 Nasal Cannula 1 02/29/24 20:32 78 22 H 02/29/24 20:01 99.1 F 77 23 H 150/81 H 98 02/29/24 20:25 76 21 H 100 Nasal Cannula 2 02/29/24 20:24 76 21 H 02/29/24 18:00 99.7 F H 69 19 126/97 H 100 02/29/24 18:00 69 02/29/24 16:00 100 Nasal Cannula 2 02/29/24 16:00 86 02/29/24 16:00 99.6 F 76 14 112/97 H 95 02/29/24 14:00 87 02/29/24 14:00 99.4 F 87 15 140/106 H 96 02/29/24 14:00
--- NOTE | 2024-03-01 11:05 | PC.NURSE ---
Patient off Bipap on room air. No s/s of distress.
--- NOTE | 2024-03-01 11:17 | PCFNICU ---
ICU Rounding Note: Pt current nutrition is NPO for procedure today. Nutrition recommendation: Minced & moist L5 diet, mildly thick L2 liquids per speech recommendations when diet is advanced Last recorded weight is 131.1 kg. Bowel Motility: Last BM charted 02/26/24 +2 Labs Reviewed: GFR 49, BUN 19, Cre 1.1 Meds Noted: Lovenox, Lasix Skin: No pressure injuries Additional Notes: Extubated. NPO for procedure today. Diet to resume after procedure. Seen by speech, recommendations made for minced & moist with mildly thickened liquids. Following daily in ICU rounds. Will monitor weight, labs, skin, tube feeding tolerance, and meds every Friday and Friday. .
[2024-03-01 11:30] LABS: Glucose Point of Care 100 mg/dl (65-105)
--- NOTE | 2024-03-01 14:40 | PCOTNOTE ---
Per RN, Patient going down for a cath this afternoon. Patient not to be seem at this time. Per RN, check back tomorrow.
--- NOTE | 2024-03-01 14:41 | PC.NURSE ---
Off unit to Lashawn carmichael RN x2 at [facility].
--- NOTE | 2024-03-01 14:54 | WPDMODSED ---
Moderate Sedation Note-Pt Data Patient Data Diagnosis: out of hospital VFib arrest Present Complaint: no complaints Procedure to be performed/Plan: left heart catheterization Allergies Allergy/AdvReac Type Severity Reaction Status Date / Time No Known Allergies Allergy Verified 02/22/24 22:53 Home Medications Medication Instructions Recorded Confirmed Type albuterol sulfate 90 mcg/actuation 2 puff inhalation Q4-6H PRN 02/22/24 02/22/24 History aerosol inhaler Shortness Of Breath Or Wheezing allopurinol 300 mg tablet 300 mg PO DAILY 02/22/24 02/22/24 History amlodipine 10 mg-olmesartan 40 mg 1 tablet PO DAILY 02/22/24 02/22/24 History tablet budesonide-formoterol HFA 160 2 puff inhalation BID 02/22/24 02/22/24 History mcg-4.5 mcg/actuation aerosol inhaler (Symbicort) escitalopram oxalate 20 mg tablet 20 mg PO DAILY 02/22/24 02/22/24 History hydrochlorothiazide 25 mg tablet 25 mg PO DAILY 02/22/24 02/22/24 History meloxicam 15 mg tablet 15 mg PO DAILY 02/22/24 02/22/24 History montelukast 10 mg tablet 10 mg PO HS 02/22/24 02/22/24 History Current Medications: Active Medications Acetaminophen (Acetaminophen Elixir 325 Mg/10.15 Ml Udc) 650 mg PO Q6H PRN PRN Reason: Mild Pain (1-3) or Fever Last Admin: 02/27/24 21:00 Dose: 650 mg Albuterol/Ipratropium (Ipratropium 0.5 Mg/Albuterol Sulfate 2.5 Mg Ampul.Neb 3 Ml) 3 ml INHALATION Q6HRT [facility] Last Admin: 03/01/24 13:20 Dose: 3 ml Albuterol/Ipratropium (Ipratropium 0.5 Mg/Albuterol Sulfate 2.5 Mg Ampul.Neb 3 Ml) 3 ml INHALATION Q6HRT PRN PRN Reason: Wheezing Last Admin: 02/26/24 11:47 Dose: 3 ml Allopurinol (Allopurinol 300 Mg Tablet) 300 mg PO DAILY [facility] Last Admin: 03/01/24 08:46 Dose: 300 mg Alprazolam (Alprazolam (*Crx) 0.5 Mg Tablet) 1 mg PO Q8HR [facility] Last Admin: 03/01/24 05:44 Dose: 1 mg Aspirin (Aspirin 81 Mg Chewable Tablet) 81 mg PO DAILY@0800 [facility] Last Admin: 03/01/24 08:46 Dose: 81 mg Budesonide (Budesonide Respule Neb 0.5 Mg/2 Ml Amp) 0.5 mg INHALATION Q12HRT [facility] Last Admin: 03/01/24 07:40 Dose: 0.5 mg Dextrose (Dextrose 50% 25 Gm/50 Ml Syringe) 12.5 gm IV PUSH PRN PRN; Protocol PRN Reason: Hypoglycemia Enoxaparin Sodium (Enoxaparin 40 Mg/0.4 Ml Syringe) 40 mg SUB-Q DAILY [facility] Last Admin: 02/29/24 09:07 Dose: 40 mg Escitalopram Oxalate (Escitalopram Oxalate 10 Mg Tablet) 20 mg PO DAILY [facility] Last Admin: 03/01/24 08:46 Dose: 20 mg Glucagon (Glucagon For Inj 1 Mg Vial) 1 mg IM PRN PRN; Protocol PRN Reason: Hypoglycemia Glucose (Glucose Oral Gel 15 Gm Of Glucse In 37.5 Gm Tube) 15 gm PO PRN PRN; Protocol PRN Reason: Hypoglycemia Hydralazine HCl (Hydralazine Hcl 20 Mg/Ml Vial) 10 mg IV PUSH Q4H PRN PRN Reason: Blood Pressure - High Last Admin: 02/26/24 17:58 Dose: 10 mg Dextrose (Dextrose 5% 1,000 Ml) 1,000 mls @ 100 mls/hr IVPB PRN PRN; Protocol PRN Reason: Hypoglycemia Ampicillin Sodium/Sulbactam Sodium (Unasyn 3 Gm/Ns 100 Ml) 3 gm in 100 mls @ 200 mls/hr IVPB Q6HR [facility] Last Admin: 03/01/24 12:22 Dose: 200 mls/hr Insulin Aspart (Insulin Aspart (*Bkc) 100 Units/Ml) 4 - 8 units SUB-Q 0800,1200,1700,2100 [facility]; Protocol Last Admin: 03/01/24 12:20 Dose: Not Given Olmesartan (Olmesartan Medoxomil 10 Mg Tablet) 10 mg PO DAILY [facility] Last Admin: 03/01/24 08:46 Dose: 10 mg Pantoprazole Sodium (Pantoprazole Sodium Iv 40 Mg Vial) 40 mg IV PUSH DAILY [facility] Last Admin: 03/01/24 08:45 Dose: 40 mg Sodium Chloride (Central Line Flush) 10 ml IV PUSH Q8HR [facility] Last Admin: 03/01/24 05:22 Dose: 10 ml Sodium Chloride (Central Line Flush) 20 ml IV PUSH PRN PRN PRN Reason: after blood draws Sedation/Anesthesia: No previous sedation/anesthesia problems (including family history). PMFSH Past Medical History Medical History Asthma Depression Essential hypertension Gout Kidney stones Mixed hyperlipidemia cholesterol to avoid triglycerid
--- NOTE | 2024-03-01 14:54 | WPDINTPN ---
Progress Note: A&P Assessment and Plan (1) Cardiac arrest: Code(s): I46.9 - Cardiac arrest, cause unspecified Status: Acute Assessment and Plan: [place] VFib arrest in a patient with some underlying heart disease details of which are unknown. As above mentioned patient was recommended pacemaker AICD placement in 2016 which she refused at that time. She also may have underlying coronary disease. Will try to obtain records -CTA chest negative for PE -Continue aspirin -Hypokalemia: Will replete potassium -02/24: Discontinued Zosyn (started on 02/21) -status post target temperature management -cardiology following the patient, recommended coronary angiography, patient unable to lay flat in bed, procedure was postponed until 03/01 if she can lay flat -patient is being diuresed well, pulmonary edema has been improving chest x-ray -coronary angiogram today 02/23/2024: Echocardiogram ?1. Technically difficult exam, definity contrast utilized to improve visualization. ? 2. Normal left ventricular size and systolic contractility. EF 60-65% ? 3. No significant valvular dysfunction. ? 4. Enlarged left atrium. ? 5. ECG rhythm strip during echo appears to show long QT interval. 6. RVSP 29 mmHg (2) Acute kidney injury: Code(s): N17.9 - Acute kidney failure, unspecified Status: Acute Assessment and Plan: Baseline creatinine unknown. Creatinine elevated 1.6 CK marginally elevated Likely prerenal versus renal -status post IV fluids -02/22: renal ultrasound -Mild left renal cortical atrophy. Echogenic liver, most commonly due to steatosis but also can be seen with hepatitis and fibrosis. -urine lytes did not show a prerenal picture, urine eosinophils were negative -CK levels were elevated, patient was given L of IV fluids on 02/24 -02/24: creatinine increased to 2.10 (1.30 on 02/23) -appreciate Nephrology evaluation recommendation -acute kidney injury could be likely related to prerenal, cardiac arrest/hypotension, shock, contrast for CTA -Monitor urine output electrolytes and creatinine -patient with very good urine output in response to diuresis, creatinine has normalized, chest x-ray much improved -continue diuresis (3) Acute hyperglycemia: Code(s): R73.9 - Hyperglycemia, unspecified Status: Acute Assessment and Plan: No known history of diabetes. Blood sugar elevated could be secondary to stress Continue Accu-Cheks and sliding scale insulin. Status post Lantus -blood sugars much improved -continue to monitor (4) Transaminitis: Code(s): R74.01 - Elevation of levels of liver transaminase levels Status: Acute Assessment and Plan: Normal bilirubin and alkaline phosphatase but elevated AST and ALT likely secondary to shock liver or rhabdo Monitor levels at this time. Hold statin -LFTs trending down, continue to monitor (5) Acute respiratory failure: Code(s): J96.00 - Acute respiratory failure, unspecified whether with hypoxia or hypercapnia Status: Acute Assessment and Plan: Acute Respiratory failure secondary to cardiac arrest, pulmonary edema -02/21: intubated -02/24: Extubated -BiPAP p.r.n. -encourage incentive spirometry -continue Bronchodilators -PT/OT to follow patient, up in chair -patient did pass her bedside swallow evaluation by speech therapy, currently on heart healthy diet -chest x-ray shows improvement in pulmonary edema, will continue diuresis -02/27: Speech evaluate the patient again for swallow test, recommended minced and moist and thickened liquids (6) Shock: Code(s): R57.9 - Shock, unspecified Status: Acute Assessment and Plan: RESOLVED OFF LEVOPHED Patient received IV fluids on admission -patient was also started on sodium bicarb infusion which was discontinued this morning due to metabolic alkalosis -s/p albumin -02/24: Zosyn Discontinued -02/21: Blood cultures negative x2 so far -02/21:
--- NOTE | 2024-03-01 16:22 | PM.IMPN ---
Progress Note: A&P Assessment and Plan (1) Cardiac arrest: Code(s): I46.9 - Cardiac arrest, cause unspecified Status: Acute Assessment and Plan: Patient brought in by EMS for VT/VFib cardiac arrest. She has some underlying cardiac conduction abnormality and AICD placement was recommended in 2017 which she refused at that time. She also may have underlying coronary disease. CTA chest negative for PE but showed left 4th-7th rib fx, small pleural effusions and airspace and GG opacities in the upper lobes CT brain normal. Status post targeted temperature management Cardiology recommended coronary angiogram which family refused she and tentatively planned for Friday Echo: EF 60-65% no significant valvular dysfunction. Coronary angiogram today (2) Acute respiratory failure: Code(s): J96.00 - Acute respiratory failure, unspecified whether with hypoxia or hypercapnia Status: Acute Assessment and Plan: Acute Respiratory failure secondary to cardiac arrest and pulmonary edema Extubated 02/25/2024 Oxygen supplementation via nasal cannula BiPAP p.r.n. Bronchodilators and incentive spirometry Diuresis for pulmonary edema ICU, cardiology rounding Chest x-ray improving (3) Shock: Code(s): R57.9 - Shock, unspecified Status: Acute Assessment and Plan: BP 67/51 documented in the ED. Central line placed and started on Levophed She is off vasopressor now Pancultured on admission Blood culture remained negative to date urine culture negative Off antibiotics (4) Acute kidney injury: Code(s): N17.9 - Acute kidney failure, unspecified Status: Acute Assessment and Plan: Baseline creatinine unknown. Creatinine 1.1 on admission CK marginally elevated but not likely to cause renal issues Likely prerenal versus renal versus chronic Renal ultrasound with mild left renal cortical atrophy. Echogenic liver most commonly due to steatosis Nephrology was consulted Creatinine trending down now and normalized now (5) Acute hyperglycemia: Code(s): R73.9 - Hyperglycemia, unspecified Status: Acute Assessment and Plan: A1c 5.4. The patient's blood glucose was reviewed on 02/23 sugars are 122 (6) Transaminitis: Code(s): R74.01 - Elevation of levels of liver transaminase levels Status: Acute Assessment and Plan: Normal bilirubin and alkaline phosphatase but elevated AST and ALT likely secondary to shock liver Not on statin therapy prior to admission Renal US showing echogenic liver levels trending down Monitor (7) Elevated troponin: Code(s): R79.89 - Other specified abnormal findings of blood chemistry Status: Acute Assessment and Plan: Troponin elevated likely secondary to CPR and cardiac arrest Patient may have underlying coronary disease but no ST segment elevation [place] cardiology on board Patient on aspirin Treated with IV heparin initially Hold statin due to elevated LFTs Not on beta-kareem due to shock (8) Acidosis: Code(s): E87.20 - Acidosis, unspecified Status: Acute Assessment and Plan: Related to cardiac arrest and anoxia. resolved now (9) Anoxic brain injury: Code(s): G93.1 - Anoxic brain damage, not elsewhere classified Status: Acute Assessment and Plan: Patient now having purposeful movement after resuscitation and coling protocol. Head CT negative pt is alert and talkative much improved Plan DVT prophylaxis Lovenox Code status full code Subjective Date/time seen: 03/01/24 16:22 Interval history: No overnight events. She is going for a catheterization today per vital stable labs reviewed. Review of Systems Review of Systems: All systems reviewed & are unremarkable except as noted in HPI and below Exam Narrative: General: Patient is awake, alert, in no acute distress HEENT: Pupils are equa
[2024-03-01 16:30] LABS: Activated Clotting Time 168 SEC (74-137)
--- NOTE | 2024-03-01 16:47 | WPDCARDPROC ---
Cardiac Cath Procedure Note Date of procedure:: 03/01/24 Performing physician:: Ras Kunz MD Indication:: status post ventricular fibrillation arrest questionable long QT syndrome Brief clinical history:: this is a 69-year-old woman who came to the hospital last week following rescued out of hospital ventricular fibrillation. She received excellent CPR and prompt resuscitation and has had a good neurological recovery. The patient is from [place] and does not receive any of her medical care here. She provided the history of a cardiovascular evaluation in the past where a defibrillator was recommended which she declined. Her electrocardiogram shows a wide QRS with a long QT and she has recovered nicely from this. Following this event left heart catheterization has been recommended to rule out ischemic heart disease as an etiology for her VF arrest. The intensive care physicians have requested that I perform the case from the radial approach. Procedure Procedure performed:: Coronary angiography PCI(CELI) to the mid to distal LAD Sedation/Medication given:: no sedation administered case start time 3:02 p.m. case end time 4:39 p.m. Access site:: right radial artery right femoral artery Estimated blood loss:: 100 cc Procedure note:: patient was brought to the cardiac catheterization lab where the right wrist was prepped and draped in the standard fashion for radial access. Using the micro puncture needle the radial artery was punctured and a 6 Croatian vascular sheath was placed. After this she received 200 mg of nitroglycerin and 2.5 mg of verapamil through the sheath and 5000 units of systemic heparin. Following this diagnostic coronary angiography was performed with some challenge/difficulty. There was challenge in advocating into the ascending aorta with the catheter as the catheters would tend to prolapse into the descending aorta and there was a angulated been between innominate artery and the aortic root. Ultimately I was able to right coronary angiography using an AL1 catheter the right coronary had a high anterior takeoff. multiple catheters were used to try to engage and inject the left coronary artery finally this was done with a Wali catheter. There was obviously high-grade disease in the mid to distal LAD as described below. It was also clear that PCI of this was not be successful from the radial approach due to poor catheter/ guiding catheter support. PCI of the LAD lesion was then recommended and carried out as detailed below. The right femoral area had been already prepped and draped in sterile fashion. Additional lidocaine was administered in this area and then the femoral artery was punctured and a 6 Croatian vascular sheath was placed in that location. Following this the patient received 600 mg of oral clopidogrel and she was anticoagulated with bolus and infusion of Angiomax for the intervention. Following completion of the intervention is detailed below the femoral sheath was sutured into position the radial sheath was removed and a TR band was placed. The procedure was difficult/ challenging but otherwise uncomplicated and well tolerated. Findings:: Hemodynamics: Central aortic pressure was 1 52 over 70. The left ventricle was not entered during this procedure. The left main coronary artery is widely patent and of large caliber the left anterior descending is a large caliber vessel extending down to around apex. Majority of the LAD has modest luminal irregularities but there was 1 high-grade stenosis of 95-99% in the mid to distal portion of the LAD that was relatively discrete. This was the target lesion treated below. The circumflex is a large caliber vessel giving rise to the marginal branches the circumflex system has modest luminal irregularities but no angiographically significant disease was identified. The right coronary artery had a high anterior takeoff is larg
--- NOTE | 2024-03-01 17:05 | PC.NURSE ---
Patient returned to room via bed. Report received from Hali Nicholas. Right groin and right wrist sites assessed. Drsg dry and intact. No s/s of hematomas at either site. Precautions reviewed with patient and spouse. Dr. Kunz at bedside reviewing case with spouse and patient.
[2024-03-01] MEDS: SODIUM CHLORIDE 0.9% IV 1,000 ML 125 ML IV CONT (17:54)
[2024-03-01 21:40] LABS: Glucose Point of Care 95 mg/dl (65-105)
[2024-03-02] VITALS (26 sets, daily range): BP systolic 112–168; BP diastolic 52–80; PULSE 69–91; RESP 12–24; TEMP 37.2–37.6; O2SAT 90–100
[2024-03-02] MEDS: AMPICILLIN SULB 3 GM/NS 100 ML 3 GM/100 ML VIAL IVPB ×4 (01:12→18:17)
--- NOTE | 2024-03-02 05:11 | ECG_ITS ---
SEE SCANNED COPY FOR CONFIRMED REPORT MTDD
[2024-03-02] MEDS: ALPRAZolam (*CRX) 0.5 MG TABLET 1 MG PO ×2 (05:58→14:03)
[2024-03-02] MEDS: CENTRAL LINE FLUSH 10 ML IV PUSH ×2 (05:59→14:03)
[2024-03-02 06:36] LABS: Basophils Absolute Auto 0.1 K/mm3 (0.0-0.1); Basophils Percent Auto 0.8 % (0.2-1.2); Eosinophils Absolute Auto 0.2 K/mm3 (0-0.3); Eosinophils Percent Auto 2.6 % (0-4.4); Hematocrit 31.8 % (37.0-47.0); Hemoglobin 10.1 g/dL (12.0-15.0); Immature Granulocyte Absolute 0.11 K/mm3 (0.00-0.031); Immature Granulocyte Percent A 1.4 % (0-0.5); Lymphocytes Absolute Auto 1.23 K/mm3 (0.9-3.2); Lymphocytes Percent Auto 15.7 % (18.3-44.2); Mean Corpuscular HGB Conc 31.8 g/dl (32-36); Mean Corpuscular Hemoglobin 31.4 pg (26-34); Mean Corpuscular Volume 98.8 fl (80-100); Mean Platelet Volume 10.4 fl (7.4-10.4); Monocytes Absolute Auto 0.6 K/mm3 (0.1-0.6); Neutrophils Absolute Auto 5.6 K/mm3 (1.3-6.7); Neutrophils Percent Auto 71.5 % (45.5-73.1); Platelet Count Result 174 k/mm3 (150-375); Red Blood Count 3.22 M/mm3 (4.2-5.4); Red Cell Distribution Width 14.3 % (11.5-14.5); White Blood Count 7.8 K/mm3 (4.5-10.0)
[2024-03-02 06:48] LABS: Alanine Aminotransferase 56 U/L (6-35); Albumin Level 3.5 g/dL (3.5-5.1); Alkaline Phosphatase 43 U/L (38-126); Anion Gap 6 mmol/L (4-12); Aspartate Amino Transferase 53 U/L (14-36); Bilirubin,Total 0.9 mg/dL (0.2-1.3); Blood Urea Nitrogen 17 mg/dL (7-17); Carbon Dioxide 28 mmol/L (22-30); Chloride 104 mmol/L (98-107); Estimated CRCL calculation 63 ml/min; Estimated Glomerular Filt Rate 55; Glucose 102 mg/dL (65-110); Magnesium 2.3 mg/dL (1.6-2.3); Phosphorus 3.6 mg/dL (2.5-4.5); Potassium 4.3 mmol/L (3.4-5.0); Sodium 138 mmol/L (137-145)
[2024-03-02] MEDS: IPRATROPIUM 0.5 MG/ALBUTEROL SULFATE 2.5 MG AMPUL.NEB 3 ML INHALATION ×3 (08:12→20:25)
[2024-03-02] MEDS: BUDESONIDE RESPULE NEB 0.5 MG/2 ML AMP INHALATION ×2 (08:12→20:25)
[2024-03-02] MEDS: CLOPIDOGREL BISULFATE 75 MG TABLET PO (08:34)
[2024-03-02] MEDS: PANTOPRAZOLE SODIUM IV 40 MG VIAL IV PUSH (08:34)
[2024-03-02] MEDS: allopurinoL 300 MG TABLET PO (08:34)
[2024-03-02] MEDS: ASPIRIN 81 MG CHEWABLE TABLET PO (08:34)
[2024-03-02] MEDS: ESCITALOPRAM OXALATE 10 MG TABLET 20 MG PO (08:34)
[2024-03-02] MEDS: ROSUVASTATIN 10 MG TABLET 20 MG PO (08:35)
[2024-03-02] MEDS: METOPROLOL SUCCINATE EXT REL 25 MG TABCR PO (08:35)
[2024-03-02] MEDS: OLMESARTAN MEDOXOMIL 10 MG TABLET PO (08:35)
--- NOTE | 2024-03-02 09:37 | PM.PNCARD ---
Progress Note: A&P Assessment and Plan (1) Cardiac arrest: Code(s): I46.9 - Cardiac arrest, cause unspecified Status: Acute Assessment and Plan: Presented as out of hospital VFIB cardiac arrest. Completed hypothermia protocol. Echocardiogram 02/22 shows LVEF 60-65%, no significant valvular disease, moderately enlarged left atrium. EKGs with long QT, however, these were while she was on hypothermia protocol. Not on QT prolonging medications. QTc did improve on subsequent EKGs. Patient had seen a spring maker back in 2018, and an AICD was recommended at that time, however, patient had declined. We have requested records, but have not received any records as of yet. Cardiac catheterization 03/01/ showed: ?Single-vessel coronary disease with high-grade stenosis of 95-99% in the mid to distal LAD s/p successful PCI with 2.75mm x 22mm Orsiro CELI. Patient doing well post PCI. She will need to be on ASA 81mg once daily indefinitely. Loaded with Plavix 600mg in the grinding and polishing laborer, continue with Plavix 75mg once daily for at least 1 year. Started on high-intensity statin, along with beta kareem. Although patient did undergo PCI for a significant coronary lesion, given her issues with QTc and her history of AICD recommendation in the past, it is my recommendation that she undergo ICD implantation for secondary prevention. As we do not have Electrophysiology here, she would need to be transferred to another institution. Discussed this with the patient and family, and they decline. They want to follow up with Cardiology/Electrophysiology back home instead. Although they are declining ICD this hospitalization, they are agreeable to a Life Vest. Will place order for Life Vest. (2) Coronary artery disease: Code(s): I25.10 - Atherosclerotic heart disease of barrow coronary artery without angina pectoris Status: Acute Assessment and Plan: Cardiac catheterization 03/01/ showed: ?Single-vessel coronary disease with high-grade stenosis of 95-99% in the mid to distal LAD s/p successful PCI with 2.75mm x 22mm Orsiro CELI. Patient doing well post PCI. She will need to be on ASA 81mg once daily indefinitely. Loaded with Plavix 600mg in the grinding and polishing laborer, continue with Plavix 75mg once daily for at least 1 year. Started on high-intensity statin, along with beta kareem. (3) Shock: Code(s): R57.9 - Shock, unspecified Status: Acute Assessment and Plan: Resolved (4) Respiratory failure requiring intubation: Code(s): J96.90 - Respiratory failure, unspecified, unspecified whether with hypoxia or hypercapnia Status: Acute Assessment and Plan: Resolved, extubated (5) Acute kidney injury: Code(s): N17.9 - Acute kidney failure, unspecified Status: Acute Assessment and Plan: Resolved Plan Recommendations and plan discussed with Hospitalist. Subjective Date/time seen: 03/02/24 09:37 Interval history: Reason For Visit: Cardiac arrest HPI: This is a fortunate 69-year-old lady I am seeing after cardiac arrest with which she was admitted yesterday to the ICU.? She is not from this area and is unknown to physicians in this vicinity.? She and her reside in [place] and were traveling to take a family member to [facility] to be deployed in the [employer].? [place] [address] in this vicinity and having a normal conversation as his suddenly he lost consciousness and was clearly suffering a cardiac arrest.? The pulled the car over and got her onto the ground and started bystander CPR as well as calling 911.? When EMS arrived she was in ventricular fibrillation and resuscitation efforts were continued.? She was defibrillated into an effective rhythm and was transported to [facility] Emergency Room.? Here she was intubated and while in the emergency room had another arrest that was apparently marked by ventricular tachycardia and was once again cardioverted
--- NOTE | 2024-03-02 09:39 | WPDINTPN ---
Progress Note: A&P Assessment and Plan (1) Cardiac arrest: Code(s): I46.9 - Cardiac arrest, cause unspecified Status: Acute Assessment and Plan: VT VFib arrest in a patient with some underlying heart disease details of which are unknown. As above mentioned patient was recommended pacemaker AICD placement in 2016 which she refused at that time. She also may have underlying coronary disease. Will try to obtain records -CTA chest negative for PE 03/01 status post PCI with stenting of LAD -Continue aspirin, Plavix, beta-kareem, Benicar, Crestor -02/24: Discontinued Zosyn (started on 02/21) -status post target temperature management -cardiology following -cardiology recommends AICD and transferred to another facility for that. Patient at this time is refusing 02/23/2024: Echocardiogram ?1. Technically difficult exam, definity contrast utilized to improve visualization. ? 2. Normal left ventricular size and systolic contractility. EF 60-65% ? 3. No significant valvular dysfunction. ? 4. Enlarged left atrium. ? 5. ECG rhythm strip during echo appears to show long QT interval. 6. RVSP 29 mmHg (2) Acute kidney injury: Code(s): N17.9 - Acute kidney failure, unspecified Status: Acute Assessment and Plan: Baseline creatinine unknown. Creatinine elevated 1.6 at the time of presentation CK marginally elevated Likely prerenal versus renal Creatinine normalized status post IV fluids -02/22: renal ultrasound -Mild left renal cortical atrophy. Echogenic liver, most commonly due to steatosis but also can be seen with hepatitis and fibrosis. Patient was seen by Nephrology -appreciate Nephrology evaluation recommendation -acute kidney injury could be likely related to prerenal, cardiac arrest/hypotension, shock, contrast for CTA -Monitor urine output electrolytes and creatinine (3) Acute hyperglycemia: Code(s): R73.9 - Hyperglycemia, unspecified Status: Acute Assessment and Plan: No known history of diabetes. Blood sugar elevated could be secondary to stress Resolved -blood sugars much improved -continue to monitor (4) Transaminitis: Code(s): R74.01 - Elevation of levels of liver transaminase levels Status: Acute Assessment and Plan: Normal bilirubin and alkaline phosphatase but elevated AST and ALT likely secondary to shock liver or rhabdo Monitor levels at this time which has significantly improved Patient has been started on statin after PCI (5) Acute respiratory failure: Code(s): J96.00 - Acute respiratory failure, unspecified whether with hypoxia or hypercapnia Status: Acute Assessment and Plan: Acute Respiratory failure secondary to cardiac arrest, pulmonary edema -02/21: intubated -02/24: Extubated -BiPAP p.r.n. -encourage incentive spirometry -continue Bronchodilators -patient did pass her bedside swallow evaluation by speech therapy, currently on heart healthy diet -chest x-ray shows improvement in pulmonary edema, will continue diuresis -02/27: Speech evaluate the patient again for swallow test, recommended minced and moist and thickened liquids (6) Shock: Code(s): R57.9 - Shock, unspecified Status: Acute Assessment and Plan: RESOLVED OFF LEVOPHED Patient received IV fluids on admission -patient was also started on sodium bicarb infusion which was discontinued this morning due to metabolic alkalosis -s/p albumin -02/24: Zosyn Discontinued -02/21: Blood cultures negative x2 so far -02/21: Urine culture negative -currently afebrile 02/27: Patient started on Unasyn for possible aspiration (7) Elevated troponin: Code(s): R79.89 - Other specified abnormal findings of blood chemistry Status: Acute Assessment and Plan: Troponin elevated likely secondary to CPR and cardiac arrest Patient may have underlying coronary disease but no ST segment elevation [place] Now status post PCI of LAD. See
[2024-03-02 09:56] LABS: Glucose Point of Care 83 mg/dl (65-105)
[2024-03-02] MEDS: amLODIPine BESYLATE 5 MG TABLET PO (10:21)
[2024-03-02] MEDS: hydroCHLOROthiazide 25 MG TABLET PO (10:21)
--- NOTE | 2024-03-02 11:16 | PCNFU ---
Nutrition Follow-Up Complete: Inadequate Energy Intake as related to mechanical ventilation as evidenced by NPO. Goal: Meet estimated nutritional needs. Patient is progressing towards goal. We will continue current goal. Pt current nutrition is Minced and Moist Level 5 with Mild Thick liquids, Level 2. Last recorded weight is 126.2 kg, down from 132, 8 kg on admit. Bowel Motility: +BM reported 02/27 Labs Reviewed:Hgb 10.1, Hct 31.8 Meds Noted: Lexapro, Protonix, Crestor, Lovenox Skin: WNL Additional Notes: Patient had bedside swallow on 02/27- speech recommendations for Minced and Moist Level 5 with Mild Thick liquids, Level 2. Oral Intake has been > 75% of meals. Agree with diet orders at this time. Will monitor weight, labs, skin, tube feeding tolerance, and meds every 5 days.
[2024-03-02 15:02] LABS: Hematocrit 30.6 % (37.0-47.0); Hemoglobin 9.6 g/dL (12.0-15.0); Mean Corpuscular HGB Conc 31.4 g/dl (32-36); Mean Platelet Volume 10.8 fl (7.4-10.4); Platelet Count Result 193 k/mm3 (150-375); Red Cell Distribution Width 14.3 % (11.5-14.5); White Blood Count 7.7 K/mm3 (4.5-10.0)
--- NOTE | 2024-03-02 16:27 | PM.IMPN ---
Progress Note: A&P Assessment and Plan (1) Cardiac arrest: Code(s): I46.9 - Cardiac arrest, cause unspecified Status: Acute Assessment and Plan: Patient brought in by EMS for VT/VFib cardiac arrest. She has some underlying cardiac conduction abnormality and AICD placement was recommended in 2017 which she refused at that time. She also may have underlying coronary disease. CTA chest negative for PE but showed left 4th-7th rib fx, small pleural effusions and airspace and GG opacities in the upper lobes CT brain normal. Status post targeted temperature management Cardiology recommended coronary angiogram which family refused she and tentatively planned for Friday Echo: EF 60-65% no significant valvular dysfunction. Status post coronary angiogram 03/01/24: High-grade stenosis of 95-99% in the mid to distal LAD was identified status post successful intervention of the lad lesion with CELI. ICD implantation for secondary prevention was recommended for which she needed to be transferred which was declined by the patient and family. The degree of of the life vest until follow-up with Cardiology/EP at home. LifeVest has been ordered by Cardiology. Aspirin and Plavix and high-dose statin and beta-kaerem (2) Acute respiratory failure: Code(s): J96.00 - Acute respiratory failure, unspecified whether with hypoxia or hypercapnia Status: Acute Assessment and Plan: Acute Respiratory failure secondary to cardiac arrest and pulmonary edema Extubated 02/25/2024 Oxygen supplementation via nasal cannula BiPAP p.r.n. Bronchodilators and incentive spirometry Diuresis for pulmonary edema ICU, cardiology rounding Chest x-ray improving (3) Shock: Code(s): R57.9 - Shock, unspecified Status: Acute Assessment and Plan: BP 67/51 documented in the ED. Central line placed and started on Levophed She is off vasopressor now Pancultured on admission Blood culture remained negative to date urine culture negative Off antibiotics Restarted on Unasyn on 02/27 for possible aspiration (4) Acute kidney injury: Code(s): N17.9 - Acute kidney failure, unspecified Status: Acute Assessment and Plan: Baseline creatinine unknown. Creatinine 1.1 on admission CK marginally elevated but not likely to cause renal issues Likely prerenal versus renal versus chronic Renal ultrasound with mild left renal cortical atrophy. Echogenic liver most commonly due to steatosis Nephrology was consulted Creatinine trending down now and normalized now (5) Acute hyperglycemia: Code(s): R73.9 - Hyperglycemia, unspecified Status: Acute Assessment and Plan: A1c 5.4. The patient's blood glucose was reviewed on 02/23 sugars are 122 (6) Transaminitis: Code(s): R74.01 - Elevation of levels of liver transaminase levels Status: Acute Assessment and Plan: Normal bilirubin and alkaline phosphatase but elevated AST and ALT likely secondary to shock liver Not on statin therapy prior to admission Renal US showing echogenic liver levels trending down Monitor (7) Elevated troponin: Code(s): R79.89 - Other specified abnormal findings of blood chemistry Status: Acute Assessment and Plan: Troponin elevated likely secondary to CPR and cardiac arrest Patient may have underlying coronary disease but no ST segment elevation [place] cardiology on board Patient on aspirin Treated with IV heparin initially Hold statin due to elevated LFTs Not on beta-kareem due to shock initially but now back on beta-kareem small dose (8) Acidosis: Code(s): E87.20 - Acidosis, unspecified Status: Acute Assessment and Plan: Related to cardiac arrest and anoxia. resolved now (9) Anoxic brain injury: Code(s): G93.1 - Anoxic brain damage, not elsewhere classified Status: Acute Assessment and Plan: Patient now having pur
[2024-03-03] VITALS (11 sets, daily range): BP systolic 140–168; BP diastolic 69–119; PULSE 67–77; RESP 17–20; TEMP 37.3–37.7; O2SAT 92–97
[2024-03-03] MEDS: IPRATROPIUM 0.5 MG/ALBUTEROL SULFATE 2.5 MG AMPUL.NEB 3 ML INHALATION ×2 (03:00→09:18)
[2024-03-03 04:32] LABS: Basophils Percent Auto 0.6 % (0.2-1.2); Eosinophils Absolute Auto 0.3 K/mm3 (0-0.3); Eosinophils Percent Auto 4.6 % (0-4.4); Hematocrit 30.3 % (37.0-47.0); Hemoglobin 9.7 g/dL (12.0-15.0); Immature Granulocyte Percent A 1.4 % (0-0.5); Lymphocytes Absolute Auto 2.16 K/mm3 (0.9-3.2); Lymphocytes Percent Auto 31.2 % (18.3-44.2); Mean Corpuscular Hemoglobin 31.1 pg (26-34); Mean Corpuscular Volume 97.1 fl (80-100); Mean Platelet Volume 9.9 fl (7.4-10.4); Monocytes Absolute Auto 0.6 K/mm3 (0.1-0.6); Monocytes Percent Auto 8.1 % (2.6-8.5); Neutrophils Absolute Auto 3.8 K/mm3 (1.3-6.7); Neutrophils Percent Auto 54.1 % (45.5-73.1); Platelet Count Result 188 k/mm3 (150-375); Red Blood Count 3.12 M/mm3 (4.2-5.4); Red Cell Distribution Width 14.3 % (11.5-14.5); White Blood Count 6.9 K/mm3 (4.5-10.0)
[2024-03-03 04:43] LABS: Alanine Aminotransferase 50 U/L (6-35); Albumin Level 3.6 g/dL (3.5-5.1); Alkaline Phosphatase 56 U/L (38-126); Anion Gap 2 mmol/L (4-12); Aspartate Amino Transferase 41 U/L (14-36); Bilirubin,Total 0.7 mg/dL (0.2-1.3); Blood Urea Nitrogen 14 mg/dL (7-17); Calcium 9.3 mg/dL (8.4-10.2); Carbon Dioxide 33 mmol/L (22-30); Chloride 100 mmol/L (98-107); Estimated CRCL calculation 49 ml/min; Estimated Glomerular Filt Rate 41; Glucose 99 mg/dL (65-110); Magnesium 2.3 mg/dL (1.6-2.3); Phosphorus 2.9 mg/dL (2.5-4.5); Potassium 3.8 mmol/L (3.4-5.0); Sodium 135 mmol/L (137-145)
[2024-03-03] MEDS: CENTRAL LINE FLUSH 10 ML IV PUSH (06:49)
[2024-03-03] MEDS: BUDESONIDE RESPULE NEB 0.5 MG/2 ML AMP INHALATION (09:19)
[2024-03-03] MEDS: METOPROLOL SUCCINATE EXT REL 25 MG TABCR PO (09:19)
[2024-03-03] MEDS: OLMESARTAN MEDOXOMIL 10 MG TABLET PO (09:19)
[2024-03-03] MEDS: allopurinoL 300 MG TABLET PO (09:20)
[2024-03-03] MEDS: ASPIRIN 81 MG CHEWABLE TABLET PO (09:20)
[2024-03-03] MEDS: CLOPIDOGREL BISULFATE 75 MG TABLET PO (09:21)
[2024-03-03] MEDS: ESCITALOPRAM OXALATE 10 MG TABLET 20 MG PO (09:21)
[2024-03-03] MEDS: hydroCHLOROthiazide 25 MG TABLET PO (09:21)
[2024-03-03] MEDS: ROSUVASTATIN 10 MG TABLET 20 MG PO (09:22)
[2024-03-03] MEDS: PANTOPRAZOLE SODIUM IV 40 MG VIAL IV PUSH (09:22)
--- NOTE | 2024-03-03 13:03 | PM.PNCARD ---
Progress Note: A&P Assessment and Plan (1) Cardiac arrest: Code(s): I46.9 - Cardiac arrest, cause unspecified Status: Acute Assessment and Plan: Presented as out of hospital VFIB cardiac arrest. Completed hypothermia protocol. Echocardiogram 02/22 shows LVEF 60-65%, no significant valvular disease, moderately enlarged left atrium. EKGs with long QT, however, these were while she was on hypothermia protocol. Not on QT prolonging medications. QTc did improve on subsequent EKGs. Patient had seen a electrical assistant back in 2018, and an AICD was recommended at that time, however, patient had declined. We have not been able to get any of those records. Cardiac catheterization 03/01/ showed: ?Single-vessel coronary disease with high-grade stenosis of 95-99% in the mid to distal LAD s/p successful PCI with 2.75mm x 22mm Orsiro CELI. Patient doing well post PCI. She will need to be on ASA 81mg once daily indefinitely. Loaded with Plavix 600mg in the technical laboratory asst, continue with Plavix 75mg once daily for at least 1 year. Started on high-intensity statin, along with beta kareem. Although patient did undergo PCI for a significant coronary lesion, given her issues with QTc and her history of AICD recommendation in the past, it is my recommendation that she undergo ICD implantation for secondary prevention. As we do not have Electrophysiology here, she would need to be transferred to another institution. Discussed this with the patient and family, and they declined. They want to follow up with Cardiology/Electrophysiology back home instead. Although they are declining ICD this hospitalization, they are agreeable to a Life Vest. Placed order for Life Vest. (2) Coronary artery disease: Code(s): I25.10 - Atherosclerotic heart disease of [place] coronary artery without angina pectoris Status: Acute Assessment and Plan: Cardiac catheterization 03/01/ showed: ?Single-vessel coronary disease with high-grade stenosis of 95-99% in the mid to distal LAD s/p successful PCI with 2.75mm x 22mm Orsiro CELI. Patient doing well post PCI. She will need to be on ASA 81mg once daily indefinitely. Loaded with Plavix 600mg in the technical laboratory asst, continue with Plavix 75mg once daily for at least 1 year. Started on high-intensity statin, along with beta kareem. (3) Hypertension: Code(s): I10 - Essential (primary) hypertension Status: Acute Assessment and Plan: Blood pressures are elevated. Will resume home Amlodipine today. Continue Olmesartan, HCTZ. (4) Shock: Code(s): R57.9 - Shock, unspecified Status: Acute Assessment and Plan: Resolved (5) Respiratory failure requiring intubation: Code(s): J96.90 - Respiratory failure, unspecified, unspecified whether with hypoxia or hypercapnia Status: Acute Assessment and Plan: Resolved, extubated (6) Acute kidney injury: Code(s): N17.9 - Acute kidney failure, unspecified Status: Acute Assessment and Plan: Resolved Plan Recommendations and plan discussed with Hospitalist. Subjective Date/time seen: 03/03/24 13:03 Interval history: Reason For Visit: Cardiac arrest HPI: This is a fortunate 69-year-old lady I am seeing after cardiac arrest with which she was admitted yesterday to the ICU.? She is not from this area and is unknown to physicians in this vicinity.? She and her reside in [place] and were traveling to take a family member to [facility] to be deployed in the [employer].? [place] [address] in this vicinity and having a normal conversation as his suddenly he lost consciousness and was clearly suffering a cardiac arrest.? The pulled the car over and got her onto the ground and started bystander CPR as well as calling 911.? When EMS arrived she was in ventricular fibrillation and resuscitation efforts were continued.? She was defibrillated into an effective rhythm and was transported t
--- NOTE | 2024-03-03 15:49 | PM.DS ---
DS: Admitting Diagnosis Discharge Date 03/03/24 Admitting Diagnosis Out of Hospital Cardiac Arrest DS: Discharge Diagnosis Discharge Diagnosis (1) Cardiac arrest: Code(s): I46.9 - Cardiac arrest, cause unspecified Status: Acute (2) Acute respiratory failure: Code(s): J96.00 - Acute respiratory failure, unspecified whether with hypoxia or hypercapnia Status: Acute (3) Shock: Code(s): R57.9 - Shock, unspecified Status: Acute (4) Acute kidney injury: Code(s): N17.9 - Acute kidney failure, unspecified Status: Acute (5) Acute hyperglycemia: Code(s): R73.9 - Hyperglycemia, unspecified Status: Acute (6) Transaminitis: Code(s): R74.01 - Elevation of levels of liver transaminase levels Status: Acute (7) Elevated troponin: Code(s): R79.89 - Other specified abnormal findings of blood chemistry Status: Acute (8) Acidosis: Code(s): E87.20 - Acidosis, unspecified Status: Acute (9) Anoxic brain injury: Code(s): G93.1 - Anoxic brain damage, not elsewhere classified Status: Acute DS: Summary Hospital Course Reason for hospitalization: 69yo female with HTN, asthma and HLD here after having cardiac arrest in the field. Please see H&P for details. Hospital Course: Patient brought in by EMS for VTach/VFib cardiac arrest. She has some underlying cardiac conduction abnormality and AICD placement was recommended in 2018 which she refused at that time. CTA chest negative for PE but showed left 4th-7th rib fx, small pleural effusions and airspace and GG opacities in the upper lobes. CT brain normal. She had acute Respiratory failure secondary to cardiac arrest and pulmonary edema requiring intubation. She was also hypotensive with BP 67/51 documented in the ED. Central line was placed and she was started on Levophed. She underwent cooling protocol and tolerated this well. Cultures were negative. Troponin elevated likely secondary to CPR and cardiac arrest. Elevated AST and ALT likely secondary to shock liver. She was stabilized and able to be weaned off pressors. She was extubated 02/25/2024. Creatinine peaked at 2.1 felt related to above. Renal ultrasound with mild left renal cortical atrophy. Echogenic liver most commonly due to steatosis. Nephrology was consulted. She completed a course of abx for possible aspiration PNA. Creatinine trended down now. She was weaned to room air. Echo:EF 60-65% no significant valvular dysfunction. EKGs with long QT, however, these were while she was on hypothermia protocol. Not on QT prolonging medications. QTc did improve on subsequent EKGs. Patient had seen a coding file clerk back in 2018, and an AICD was recommended at that time, however, patient had declined. We have not been able to get any of those records. Cardiac catheterization showed: ?Single-vessel coronary disease with high-grade stenosis of 95-99% in the mid to distal LAD s/p successful PCI with 2.75mm x 22mm Orsiro CELI. Although patient did undergo PCI for a significant coronary lesion, given her issues with QTc and her history of AICD recommendation in the past, Cardiology felt that the patient should undergo ICD implantation for secondary prevention. As we do not have Electrophysiology here, plan was to transfer patient to another institution but she declined. They wanted to follow up with Cardiology/Electrophysiology back home instead. Although they are declining ICD this hospitalization, they are agreeable to a Life Vest. Life Vest ordered and placed. Instruction given. She will need to continue Aspirin, Plavix, high-dose statin and beta-kareem. She overall did well and was able to be discharged home on 03/03/24. She has been up walking with staff. Status at Discharge Cognitive/behavioral status at discharge: stable Time Spent with Patient Time attestation: Total time spent providing and/or coordinating discharge services: 38 min
== END 2024-03-03 17:26 | disposition home or self-care (01) | DRG 321 ==
LOC: ANHED 19:45 → ANHICU 21:42
PROVIDERS: Internal Medicine; Specialist; Admitting Provider Internal Medicine; Emergency Provider Emergency Medicine; Visit Provider Internal Medicine
PROC: 4A023N7 Measurement of Cardiac Sampling and Pressure, Left Heart, Percutaneous Approach (ICD-10-PCS; CPT 93454; principal; 2024-03-01 13:00)
PROC: 4A023N7 Measurement of Cardiac Sampling and Pressure, Left Heart, Percutaneous Approach (ICD-10-PCS; CPT 36140; 2024-03-01 13:00)
PROC: 4A023N7 Measurement of Cardiac Sampling and Pressure, Left Heart, Percutaneous Approach (ICD-10-PCS; 2024-03-01 13:00)
DX: I49.01 Ventricular fibrillation (principal); J69.0 Pneumonitis due to inhalation of food and vomit; K72.00 Acute and subacute hepatic failure without coma; J96.02 Acute respiratory failure with hypercapnia; S22.42XA Multiple fractures of ribs, left side, initial encounter for closed fracture; Z68.42 Body mass index [BMI] 45.0-49.9, adult; N17.9 Acute kidney failure, unspecified; E87.20 Acidosis, unspecified; G93.1 Anoxic brain damage, not elsewhere classified; I47.20 Ventricular tachycardia, unspecified; I46.9 Cardiac arrest, cause unspecified; I25.10 Atherosclerotic heart disease of native coronary artery without angina pectoris; I95.9 Hypotension, unspecified; D64.9 Anemia, unspecified; E66.01 Morbid (severe) obesity due to excess calories; E78.2 Mixed hyperlipidemia; I44.7 Left bundle-branch block, unspecified; I10 Essential (primary) hypertension; J45.909 Unspecified asthma, uncomplicated; K76.0 Fatty (change of) liver, not elsewhere classified; M10.9 Gout, unspecified; R73.9 Hyperglycemia, unspecified; R68.0 Hypothermia, not associated with low environmental temperature
CPT/HCPCS: 31500; 36140; 36415; 36556; 36600; 70450; 71045; 71275; 76775; 80048; 80053; 80061; 80307; 81001; 82375; 82436; 82550; 82570; 82805; 82948; 83036; 83050; 83605; 83735; 83880; 84100; 84133; 84145; 84300; 84443; 84484; 85025; 85027; 85055; 85610; 85730; 85999; 86140; 86850; 86900; 86901; 87040; 87086; 87641; 92610; 92950; 93005; 93454; 94002; 94003; 94618; 94640; 96366; 96375; 97110; 97116; 97161; 97530; 99291; A9270; C1725; C1751; C1769; C1874; C1887; C1894; C8929; C9113; C9600; J0171; J0282; J0295; J0360; J0583; J1644; J1650; J1815; J1940; J2060; J2250; J2305; J2543; J3010; J3475; J3480; J7030; J7040; J7050; J7120; L1830; P9047; Q9957; Q9967